=== PATIENT | female | born 1985 | race Hispanic/Latino ===

== ENCOUNTER 2019-09-17 10:02 | Emergency (ER) | payer SELFPAY ==
[~2019-09-17] VITALS: Ht 167.6 cm; Wt 113.4 kg
--- NOTE | 2019-09-17 10:29 | Emergency Department Note ---
History of Present Illnes History of Present Illness Chief Complaint: Genitourinary History of Present Illness This is a 34 year old female CC PREG 2 MONTHS AGO. PT . 2 MISCAR RIAGES AND RECENT 3 WKS AGO. C/O VAGINAL BLEEDING SINCE AND NOW HAVING HEAVY VAGINAL BLEEDING. DONE AT [facility]. PT HAS NO [employer]LLER. PT STATES SHE HAS TRIED MULTIPLE TIMES TO GET A HOLD OF CLINIC AND WAS TOLD TO COME TO ER. PT STATES PASSING LARGE CLOTS. PT STATES USING 3 PADS/DAY. PT AAOX4. AMBULATORY. PT STATES VAG BLEEDING ENTIRE 3 WKS. DENIES SOB. NO HX OF ANEMIA. SKIN W/D. Historian: Patient Arrival Mode: Car Inbound Sales Consultant Required: No Onset (how long ago): week(s) (2) Location: Vagina Quality: Bleeding Radiation: Reports non-radiation Severity: moderate Onset quality: gradual Duration (how long): week(s) Timing of current episode: constant Progression: worsening Chronicity: new Context: Reports recent surgery (D+C); Denies recent illness, Denies recent immobilization, Denies recent travel, Denies trauma/injury, Denies new medications, Denies hx of DVT/PE, Denies non- compliance w/ medications Relieving factors: none Exacerbating factors: none Associated symptoms: Reports denies other symptoms Treatments prior to arrival: none Past Medical/Family History Physician Review I have reviewed the patient's past medical and family history. Any updates have been documented here. Past Medical History Recent Fever: No Clinical Suspicion of Infectio: No New/Unexplained Change in Ment: No Other Medical History: +SMOKER OBESITY Past Surgical History: Cholecysctectomy, Appendectomy, Other Surgery: C SECTION X2 D & C Social History Smoking Cessation: Current every day smoker Counseling Performed: No Alcohol Use: None Any Illegal Drug Use: No Physically hurt or threatened: No Family History Family history of heart diseas: No Other Last Tetanus: UNK Any Pre-Existing Lines (PICC,: No Review of Systems Review of Systems Constitutional: Reports no symptoms EENTM: Reports no symptoms Cardiovascular: Reports no symptoms Respiratory: Reports no symptoms Gastrointestinal: Reports no symptoms Genitourinary: Reports no symptoms, Reports as per HPI, Reports other ([place] bleeding) Musculoskeletal: Reports no symptoms Integumentary: Reports no symptoms Neurological: Reports no symptoms Psychological: Reports no symptoms Endocrine: Reports no symptoms Hematological/Lymphatic: Reports no symptoms Physical Exam Related Data Allergies: Coded Allergies: No Known Allergies (Unverified , 05/06/14) Triage Vital Signs Vital Signs Date Time Temp Pulse Resp B/P (MAP) Pulse Ox O2 Delivery O2 Flow Rate FiO2 09/17/19 10:11 98.0 86 16 136/81 100 Room Air Vital signs reviewed: Yes Physical Exam CONSTITUTIONAL Constitutional: Present well-developed, Present well-nourished HENT HENT: Present normocephalic, Present atraumatic, Present oropharynx clear/moist, Present nose normal HENT L/R: Present left ext ear normal, Present right ext ear normal EYES Eyes: Reports PERRL, Reports conjunctivae normal NECK Neck: Present ROM normal PULMONARY Pulmonary: Present effort normal, Present breath sounds normal CARDIOVASCULAR Cardiovascular: Present regular rhythm, Present heart sounds normal, Present capillary refill normal, Present normal rate GASTROINTESTINAL Abdominal: Present soft, Present nontender, Present bowel sounds normal GENITOURINARY Genitourinary: Present vaginal discharge (Bleeding); Absent exam deferred SKIN Skin: Present warm, Present dry MUSCULOSKELETAL Musculoskeletal: Present ROM normal NEUROLOGICAL Neurological: Present alert, Present oriented x 3, Present no gross motor or sensory deficits PSYCHOLOGICAL Psychological: Present mood/affect normal, Present judgement normal Results Laboratory Lab results reviewed: Yes Assessment & Plan Medical Decision Making MDM 34-year-old female presenting for continued vaginal bleeding after elective with D&C. Exam shows an overall well-appearing patient in no acute distress, vital signs stable, within acceptable limits. Moderate amount of leading noted in the vaginal vault. Ultrasound shows retained blood clots but no intrauterine . HCG is 800. It is likely that her bleeding is secondary to return of spontaneous menstrual cycles. No signs to indicate hemorrhagic shock. I discussed management with patient and she has elected to follow up with [employer] and start oral contraceptive pills. Doubt emergent process at this time. I discussed results patient as well as expected disease time course and management. They will follow up with their primary care provider or return to the emergency department for new or worsening symptoms. Patient's appropriate for discharge. Part of this note was dictated with Satish and is subject to recognition errors. Reassessment Reassessment time: 11:27 Reassessment Well appearing, NAD Assessment & Plan Final Impression: (1) Abnormal uterine bleeding Depart Disposition: HOME, SELF-CARE Last Vital Signs Date Time Temp Pulse Resp B/P (MAP) Pulse Ox O2 Delivery O2 Flow Rate FiO2 09/17/19 10:11 98.0 86 16 136/81 100 Room Air Home Meds Active Scripts Norethindrone (NORETHINDRONE) 0.35 Mg Tablet, 0.35 MG PO DAILY, #30 Prov:GRANT BOOTHE MD 09/17/19 GRANT BOOTHE MD Sep 17, 2019 10:29
[2019-09-17 10:42] LABS: BASOPHILS # (AUTO) 0.1 (0.0-0.1); BASOPHILS % 0.7 % (0.0-1.0); EOSINOPHILS # (AUTO) 0.3 (0.0-0.4); EOSINOPHILS % 3.8 % (0.0-6.0); HEMATOCRIT 38.1 % (34.2-44.1); HEMOGLOBIN 12.8 g/dL (12.0-16.0); LYMPHOCYTES # (AUTO) 1.2 (1.0-3.2); MEAN CORPUSCULAR HEMOGLOBIN 30.5 pg (28-32); MEAN CORPUSCULAR HGB CONC 33.6 g/dL (31-35); MEAN CORPUSCULAR VOLUME 90.9 fL (81-99); MONOCYTES # (AUTO) 0.5 (0.2-0.8); MONOCYTES % 6.9 % (4.4-11.3); NEUTROPHILS # (AUTO) 5.6 (2.1-6.9); NEUTROPHILS % 73.2 % (38.7-80.0); PLATELET COUNT 308 x10e3/uL (140-360); RED BLOOD COUNT 4.19 x10e6/uL (3.6-5.1); RED CELL DISTRIBUTION WIDTH 12.5 % (11.7-14.4)
[2019-09-17 11:12] LABS: ALANINE AMINOTRANSFERASE 21 IU/L (0-55); ALBUMIN 3.8 g/dL (3.5-5.0); ALBUMIN/GLOBULIN RATIO 1.1 (0.8-2.0); ALKALINE PHOSPHATASE 64 IU/L (40-150); ANION GAP 10.9 mmol/L (8-16); BLOOD UREA NITROGEN 10 mg/dL (7-26); BUN/CREATININE RATIO 14 (6-25); CALCIUM 8.7 mg/dL (8.4-10.2); CARBON DIOXIDE 26 mmol/L (22-29); CHLORIDE 103 mmol/L (98-107); EST GLOMERULAR FILTRATION RATE > 60 ML/MIN (60-); GLUCOSE 94 mg/dL (74-118); POTASSIUM 3.9 mmol/L (3.5-5.1); SODIUM 136 mmol/L (136-145)
[2019-09-17 11:12] LABS: CLARITY,URINE SL CLOUDY (CLEAR); COLOR,URINE YELLOW (YELLOW)
--- OUTSIDE RECORDS SUMMARY | 2019-09-17 11:12 | XMS REPORT | Continuity of Care Document ---
Author Author Kenyatta Montero [employer] Organization [email or web address] Address Unknown Phone Unavailable Care Team Providers Care Live Hanger Name Role Phone [email or web address] Unavailable Un available Problems Problem Status Onset Date Classification Date Reported Comments Source Unspecified ovarian cyst, right side 08/30/2017 03/12/2018 [facility] Unspecified ovarian cyst, unspecified side 08/23/2017 03/12/2018 [facility] STOMACH SWELLING Active 08/23/2017 [facility] UNK Active 0 02/19/2016 [facility] Discharge Diagnosis: Other cholelithiasi s without obstruction 05/05/2015 05/09/2015 [facility] ABD PAIN Active 05/05/2015 [facility] RUQ PAIN, ACUTE APPENDICITIS, ED Active 03/22/2015 [facility] Discharge Diagnosis: Abnormality in feta l heart rate and rhythm complicating labor and delivery 03/19/2015 03/22/2015 [facility] HEART PALPITATIONS/ ABDOMINAL PAIN Active 03/19/2015 [facility] Discharge Diagnosis: Biliary colic 01/07/2015 01/10/2015 [facility] ABD-OTHER Active 01/07/2015 [facility] ABDOMINAL PAIN Active 04/06/2012 [facility] Anxiety (finding) Active Problem 03/12/2018 [facility] Asthma (disorder) Resolved Problem 03/12/2018 [facility] Calculus in biliary tract (disorder) Active Problem 04/2018 [facility] Gastritis (disorder) Resolved Problem 03/12/2018 [facility] Morbid obesity (disorder) Acti ve Problem 04/2018 [facility] Final: Missed 03/22/2015 [facility] Final: 13 weeks gestation of 03/22/2015 [facility] UNSPECIFIED ACUTE APPENDICITIS Active [facility] Medications Medication Details Route Status Patient Instructions Ordering Provider Order Date Source tramadol hydrochloride 50 MG Oral Tablet 50 mg = 1 tab, PO, Q4H, not to exceed 400 mg/day, X 3 day, # 18 tab, 0 Refill(s) No Longer Active 08/24/2017 [facility] ibuprofen 800 mg oral tablet 8 00 mg = 1 tab, PO, Q8H, not to exceed 3200 mg/day with food or milk, X 7 day, # 21 tab, 0 Refill(s) No Longer Active 08/24/2017 [facility] Sodium Chloride 0.9% (Bolus) IV 1,000 mL, Infuse Over: 1 hr, Route: IV, ONCE, Priority: STAT, Dosing Weight 115.028 kg, Start date: 08/23/17 20:31:00 CDT, Stop date: 08/23/17 20:31:00 CDT Inactive 08/24/2017 [facility] Ketorolac 30 mg, Route: IVP, D rug form: INJ, ONCE, Dosing Weight 115.028, kg, Priority: STAT, Start date: 08/23/17 20:31:00 CDT, Stop date: 08/23/17 20:31:00 CDT Inactive 08/24/2017 [facility] Acetaminophen 325 MG / Hydrocodone Israel trate 10 MG Oral Tablet [[place] 10/325] Notes: Do not exceed 4gm/day of acetamin ophen. (Same as: [place] 325/10) Inactive 05/12/2015 [facility] Naloxone Notes: Same as Narcan Inactive 05/12/2015 [facility] Ondansetron Notes: (Same as: Pily paniagua) MEDICATION WASTE Product Size: 4 mg Product Wasted: ___ mg Inactive 05/12/2015 [facility] Oxycodone Notes: (Same as: Rosette icodone) Inactive 05/12/2015 [facility] Hydralazine Notes: (Same as: A presoline) Push over 5 minutes Inactive 05/12/2015 [facility] Metoprolol Notes: (Same as: Lo pressor) Push over 2 minutes Inactive 05/12/2015 [facility] Flumazenil Notes: (Same as: Ro mazicon) Inactive 05/12/2015 [facility] Meperidine Notes: (Same As: De merol) Inactive 05/12/2015 [facility] Hydromorphone 0.5 mg, 0.5 mL, Route: IVP, Drug form: INJ, Q5Min, Dosing Weight 114.545, kg, PRN Pain Score 7-10, Start date: 05/12/15 13:27:00, Duration: 4 doses or times, Stop date: Limited # of times Inactive 05/12/2015 [facility] Fentanyl Notes: (Same as: Subl imaze) Preservative free. Inactive 05/12/2015 [facility] glycopyrrolate (ANES) Route: I V, Drug form: INJ, ONCE, Stop date: 05/12/15 13:23:00 Inactive 05/12/2015 [facility] neostigmine (ANES) Route: IV, Drug form: INJ, ONCE, Stop date: 05/12/15 13:23:00 Inactive 05/12/2015 [facility] acetaminophen (ANES) Route: IV , Drug form: INJ, ONCE, Stop date: 05/12/15 13:07:00 Inactive 05/12/2015 [facility] tramadol hydrochloride 50 MG Oral Tablet 50 mg = 1 tab, PO, Q6H, PRN Pain, X 10 day, # 40 tab, 0 Refill(s) Active 05/12/2015 [facility] Docusate Sodium 100 MG Oral Capsule [Colace] 100 mg = 1 cap, PO, BID, PRN Constipation, # 20 cap, 0 Refill(s), Pharmacy: [facility] [id number] Active 05/12/2015 [facility] rocuronium (ANES) Route: IV, D rug form: INJ, ONCE, Stop date: 05/12/15 12:47:00 Inactive 05/12/2015 [facility] lidocaine (ANES) Route: IV, Dr ug form: INJ, ONCE, Stop date: 05/12/15 12:42:00 Inactive 05/12/2015 [facility] ceFAZolin (ANES) Route: IV, Dr ug form: INJ, ONCE, Stop date: 05/12/15 12:37:00 Inactive 05/12/2015 [facility] ondansetron (ANES) Route: IV, Drug form: INJ, ONCE, Stop date: 05/12/15 12:37:00 Inactive 05/12/2015 [facility] midazolam (ANES) Route: IV, Dr ug form: SOLN, ONCE, Stop date: 05/12/15 12:37:00 Inactive 05/12/2015 [facility] fentaNYL (ANES) Route: IV, Alistair g form: INJ, ONCE, Stop date: 05/12/15 12:37:00 Inactive 05/12/2015 [facility] propofol (ANES) Route: IV, Alistair g form: INJ, ONCE, Stop date: 05/12/15 12:32:00 Inactive 05/12/2015 [facility] Lactated Ringers Injection IV (ANES) (ANES) Route: IV, Total Volume: 1,000, Start date: 05/12/15 11:52:00, Stop date: 05/12/15 12:52:00 Inactive 05/12/2015 [facility] Calcium Chloride 0.0014 MEQ/ML / Potassi um Chloride 0.004 MEQ/ML / Sodium Chloride 0.103 MEQ/ML / Sodium Lactate 0.028 MEQ/ML Injectable Solution 1,000 mL, Rate: 25 ml/hr, Infuse over: 4 0 hr, Route: IV, Dosing Weight 114.545 kg, Total Volume: 1,000, Start date: 05/12/15 11:13:00, Duration: 30 day, Stop date: 06/11/15 11:12:00 Inactive 05/12/2015 [facility] multivitamin Daily, 0 Refill(s) Active 05/08/2015 [facility] Dicyclomine Hydrochloride 20 MG Oral Tablet [Bentyl] 20 mg = 1 tab, PO, QID, # 40 tab, 0 Refill(s), Pharmacy: [id number] Active 05/06/2015 [facility] Bentyl 20 mg, Route: IM, ONCE, Dosing Weight 113.636, kg, Start date: 05/05/15 23:28:00, Stop date: 05/05/15 23:28:00 No Longer Active 05/06/2015 [facility] Bentyl Notes: (Same as: Bentyl) No Longer Active 05/05/2015 [facility] Protonix Notes: Tablet should not be chewed or crushed. (Same as: Protonix) No Longer Active 03/23/2015 [facility] Nexium 40 mg, Route: PO, BID-B efore Meals, Dosing Weight 113.636, kg, Start date: 03/23/15 7:30:00, Duration: 30 day, Stop date: 04/21/15 16:30:00 Inactive 03/23/2015 [facility] Oxycodone 5 mg, Route: PO, Alistair g form: TAB, Q4H, Dosing Weight 113.636, kg, PRN Pain Score 4-6, Start date: 03/23/15 0:16:00, Duration: 30 day, Stop date: 04/22/15 0:15:00 Inactive 03/23/2015 [facility] Metoprolol 1 mg, Route: IVP, Q 5Min, Dosing Weight 113.636, kg, PRN Other -See Comment, Start date: 03/23/15 0:16:00, Duration: 5 doses or times, Stop date: Limited # of times Inactive 03/23/2015 [facility] Dexamethasone 4 mg, Route: IVP , ONCE, Dosing Weight 113.636, kg, PRN Nausea & Vomiting, Start date: 03/23/15 0:16:00 Inactive 03/23/2015 [facility] Promethazine 6.25 mg, Route: I VPB, ONCE, Dosing Weight 113.636, kg, PRN Nausea & Vomiting, Start date: 03/23/15 0:16:00 Inactive 03/23/2015 [facility] Diphenhydramine 12.5 mg, Route : IVP, Drug form: INJ, Q6H, Dosing Weight 113.636, kg, PRN Itching, Start date: 03/23/15 0:16:00, Duration: 30 day, Stop date: 04/22/15 0:15:00 Inactive 03/23/2015 [facility] Ondansetron 4 mg, Route: IVP, ONCE, Dosing Weight 113.636, kg, PRN Nausea & Vomiting, Start date: 03/23/15 0:16:00 Inactive 03/23/2015 [facility] Glycopyrrolate 0.2 mg, Route: IVP, Q5Min, Dosing Weight 113.636, kg, PRN Bradycardia, Start date: 03/23/15 0:16:00, Duration: 3 doses or times, Stop date: Limited # of times Inactive 03/23/2015 [facility] Hydralazine 10 mg, Route: IVP, Q20Min, Dosing Weight 113.636, kg, PRN Elevated BP, Start date: 03/23/15 0:16:00, Duration: 2 doses or times, Stop date: Limited # of times Inactive 03/23/2015 [facility] Ketorolac 30 mg, Route: IVP, O NCE, Dosing Weight 113.636, kg, Start date: 03/23/15 0:16:00, Duration: 1 doses or times, Stop date: 03/23/15 0:16:00 Inactiv e 03/23/2015 [facility] Morphine 2 mg, Route: IVP, Q5M in, Dosing Weight 113.636, kg, PRN Pain Score 4-6, Start date: 03/23/15 0:16:00, Duration: 5 doses or times, Stop date: Limited # of times Inactive 03/23/2015 [facility] Fentanyl 50 microgram, Route: IVP, Q5Min, Dosing Weight 113.636, kg, PRN Pain Score 7-10, Start date: 03/23/15 0:16:00, Duration: 2 doses or times, Stop date: Limited # of times Inactive 03/23/2015 [facility] Hydromorphone 0.5 mg, Route: I [employer], Q5Min, Dosing Weight 113.636, kg, PRN Pain Score 7-10, Start date: 03/23/15 0:16:00, Duration: 4 doses or times, Stop date: Limited # of times Inactive 03/23/2015 [facility] Naloxone 0.04 mg, Route: IVP, Q2MIN, Dosing Weight 113.636, kg, PRN Narcotic Reversal, Start date: 03/23/15 0:16:00, Duration: 8 doses or times, Stop date: Limited # of times Inactive 03/23/2015 [facility] Flumazenil 0.2 mg, Route: IVP, PRN, Dosing Weight 113.636, kg, PRN Benzodiazepine Reversal, Initial dose, Start date: 03/23/15 0:16:00, Duration: 30 day, Stop date: 04/22/15 1:15:00 Inactive 03/23/2015 [facility] Meperidine 12.5 mg, Route: IVP , Q30Min, Dosing Weight 113.636, kg, PRN Other -See Comment, For shivering, Start date: 03/23/15 0:16:00, Duration: 2 doses or times, Stop date: Limited # of times Inactive 03/23/2015 [facility] ceFAZolin (SCIP) 1 gm, 100 mL, Route: IVPB, Drug form: INJ, Q8H, Dosing Weight 113.636, kg, Start date: 03/23/15 0:00:00, Duration: 1 doses or times, Stop date: 03/23/15 0:00:00 Inactive 03/23/2015 [facility] Promethazine Hydrochloride 25 MG Oral Ta blet [Phenergan] 25 mg = 1 tab, PO, Q6H, PRN Nausea, X 7 day, # 28 tab, 1 Refill(s) Active 03/23/2015 [facility] Acetaminophen 300 MG / Codeine Phosphate 30 MG Oral Tablet [Tylenol with Codeine #3] 1 - 2 tab, PO, Q4H, PRN Pain, X 2 week, # 30 tab, 2 Refill(s) Active 03/23/2015 [facility] acetaminophen-codeine #3 Notes : Do not exceed 4gm/day of acetaminophen. (Same as: Tylenol with Codeine # 3) No Longer Active 03/23/2015 [facility] rocuronium (ANES) Route: IV, D rug form: INJ, ONCE, Stop date: 03/22/15 23:18:00 Inactive 03/23/2015 [facility] ketOROLAC (ANES) IV, ONCE Inactive 03/23/2015 [facility] ceFAZolin (ANES) Route: IV, Dr ug form: INJ, ONCE, Stop date: 03/22/15 23:18:00 Inactive 03/23/2015 [facility] ondansetron (ANES) Route: IV, Drug form: INJ, ONCE, Stop date: 03/22/15 23:18:00 Inactive 03/23/2015 [facility] midazolam (ANES) Route: IV, Dr ug form: SOLN, ONCE, Stop date: 03/22/15 23:13:00 Inactive 03/23/2015 [facility] fentaNYL (ANES) Route: IV, Alistair g form: INJ, ONCE, Stop date: 03/22/15 23:13:00 Inactive 03/23/2015 [facility] propofol (ANES) Route: IV, Alistair g form: INJ, ONCE, Stop date: 03/22/15 23:13:00 Inactive 03/23/2015 [facility] Lactated Ringers Injection IV (ANES) (ANES) Route: IV, Total Volume: 1,000, Start date: 03/22/15 22:17:00, Stop date: 03/22/15 23:17:00 Inactive 03/23/2015 [facility] Cefoxitin Notes: (Same As: Mef oxin) MEDICATION WASTE Product Size: 2000 mg Product Wasted: ___ mg Inactive 03/23/2015 [facility] normal saline 0.9% IV 1,000 mL 1,000 mL, Rate: 100 ml/hr, Infuse over: 10 hr, Route: IV, Dosing Weight 113.636 kg, Total Volume: 1,000, Start date: 03/22/15 16:58:00, Duration: 30 day, Stop date: 04/21/15 16:57:00 No Longer Active 03/22/2015 [facility] Phenergan Notes: Do not give I V push. (Same as: Phenergan) No Longer Active 03/22/2015 [facility] Morphine Notes: (Same as:MORPh ine Sulfate) No Longer Active 03/22/2015 [facility] Acetaminophen 325 MG / Hydrocodone Israel trate 10 MG Oral Tablet [[place] 10/325] 1 tab, PO, Q6H, PRN Pain Score 6-10, # 3 0 tab, 0 Refill(s) No Longer Active 03/22/2015 [facility] Mefoxin 2 gm, Route: IVPB, ONC E, Dosing Weight 113.636, kg, Priority: STAT, Start date: 03/22/15 12:39:00, Stop date: 03/22/15 12:39:00 Inactive 03/22/2015 [facility] Zofran 4 mg, Route: IVP, Drug form: INJ, ONCE, Dosing Weight 113.636, kg, Priority: STAT, Start date: 03/22/15 11:21:00, Stop date: 03/22/15 11:21:00 Inactive 03/22/2015 [facility] Morphine 4 mg, Route: IVP, Alistair g form: INJ, ONCE, Dosing Weight 113.636, kg, Priority: STAT, Start date: 03/22/15 11:21:00, Stop date: 03/22/15 11:21:00 Inactive 03/22/2015 [facility] Esomeprazole 40 MG Enteric Coated Capsule [Nexium] 40 mg = 1 cap, PO, Daily, # 30 cap, 0 Refill(s) Active 03/19/2015 [facility] Ondansetron 4 MG Disintegrating Tablet [Zofran] 4 mg = 1 tab, PO, BID, PRN Nausea and Vomiting, Dissolve tab under tongue, X 5 day, # 30 tab, 0 Refill(s) Active 01/07/2015 [facility] GI cocktail 30 mL, Route: PO, Dosing Weight 159.091, kg, ONCE, STAT, Start date: 01/07/15 13:48:00, Stop date: 01/07/15 13:48:00 Inactive 01/07/2015 [facility] Morphine 4 mg, Route: IVP, ONC E, Dosing Weight 159.091, kg, Priority: STAT, Start date: 01/07/15 11:32:00, Stop date: 01/07/15 11:32:00 Inactive 01/07/2015 [facility] Sodium Chloride 0.154 MEQ/ML Injectable Solution 1,000 mL, 1,000 ml/hr, Infuse Over: 1 hr, Route: IV, ONCE, Priority: STAT, Dosing Weight 159.091 kg, Start date: 01/07/15 11:32:00, Duration: 1 doses or times, Stop date: 01/07/15 11:32:00 Inactive 01/07/2015 [facility] Ondansetron 4 mg, Route: IVP, Drug form: INJ, ONCE, Dosing Weight 159.091, kg, Priority: STAT, Start date: 01/07/15 11:32:00, Stop date: 01/07/15 11:32:00 Inactive 01/07/2015 [facility] Tylenol 1,000 mg, Route: PO, O NCE, Dosing Weight 113.636, kg, Start date: 04/07/12 22:12:00, Stop date: 04/07/12 22:12:00 PO No Longer Active [place] 2012 [facility] potassium chloride 20 mEq/15 mL oral liquid 40 mEq, 15 mL, Route: PO, Drug form: LIQ, ONCE, Dosing Weight 113.636, kg, Priority: STAT, Start date: 04/07/12 20:11:00, Stop date: 04/07/12 20:11:00 PO No Longer Active [place] 04/08/2012 [facility] Sodium Chloride 0.9% (Bolus) IV 1,000 mL 1,000 mL, Rate: 1,000 ml/hr, Infuse over: 1 hr, Route: IV, kg, Total Volume: 1,000, Priority: STAT, Start date: 04/07/12 20:11:00, Duration: 1 doses or times, Stop date: 04/07/12 21:10:00, Bolus DoseBolus Dose IV No Longer Active [place] 04/08/2012 [facility] Allergies, Adverse Reactions, Alerts No Known Medication Allergies Immunizations No Data Provided for This Section Results Order Name Results Value Reference Range Date Interpretation Comments Source MOLECULAR DIAGNOSTIC N gonorrhea by Amp Det (APTIMA) Negative *NA* (08/23/17 9:08 PM) Negative 08/24/2017 [facility] MOLECULAR DIAGNOSTIC C trachomatis b y Amp Det (APTIMA) Negative *NA* (08/23/17 9:08 PM) Negative 08/24/2017 [facility] MOLECULAR DIAGNOSTIC Source APTIMA Endocervix *NA* (08/23/17 9:08 PM) 08/24/2017 [facility] CHEM PANEL Lipase Lvl 91 73 - 393 08/24/2017 [facility] CHEM PANEL B/C Ratio 14 6 - 25 08/24/2017 [facility] CHEM PANEL AGAP 8.9 10.0 - 20.0 08/24/2017 [facility] CHEM PANEL Globulin 3.8 2.7 - 4.2 08/24/2017 [facility] CHEM PANEL A/G Ratio 1.1 0.7 - 1.6 08/24/2017 [facility] CHEM PANEL Total Protein 7.9 6.4 - 8.4 08/24/2017 [facility] CHEM PANEL CO2 28 24 - 32 08/24/2017 [facility] CHEM PANEL Calcium Lvl 8.8 8.5 - 10.5 08/24/2017 [facility] CHEM PANEL Creatinine Lvl 0.93 0.50 - 1.40 08/24/2017 [facility] CHEM PANEL Potassium Lvl 3.9 3.5 - 5.1 08/24/2017 [facility] CHEM PANEL Sodium Lvl 139 135 - 145 08/24/2017 [facility] CHEM PANEL Chloride Lvl 106 95 - 109 08/24/2017 [facility] CHEM PANEL BUN 13 7 - 22 08/24/2017 [facility] CHEM PANEL Glucose Lvl 83 70 - 99 08/24/2017 [facility] CHEM PANEL Alk Phos 71 39 - 136 08/24/2017 [facility] CHEM PANEL AST 6 0 - 37 08/24/2017 [facility] CHEM PANEL Bili Total 0.5 0.2 - 1.3 08/24/2017 [facility] CHEM PANEL ALT 19 0 - 65 08/24/2017 [facility] CHEM PANEL Albumin Lvl 4.1 3.5 - 5.0 08/24/2017 [facility] CHEM PANEL eGFR 83 08/24/2017 Result Comment: The eGFR is calculated using the CKD-EPI formula. In most young, healthy individuals the eGFR will be >90 mL/min/1.73m2. The eGFR declines with age. An eGFR of 60-89 may be normal in some populations, particularly the elderly, for whom the CKD-EPI formula has not been extensively validated. Use of the eGFR is not recommended in the following populations:

Individuals with unstable creatinine concentrations, including patients and those with serious co-morbid conditions.

Patients with extremes in muscle mass or diet.

The data above are obtained from the National Kidney Disease Education Program (NKDEP) which additionally recommends that when the eGFR is used in patients with extremes of body mass index for purposes of drug dosing, the eGFR should be multiplied by the estimated BMI. [facility] HEMATOLOGY Eosinophils # 0.2 0.0 - 0.5 08/24/2017 [facility] Neutrophils # 4.6 1.5 - 8.1 08/24/2017 [facility] Basophils 0.4 0.0 - 1.0 08/24/2017 [facility] Eosinophils 2.6 0.0 - 4.0 08/24/2017 [facility] Monocytes 7.6 2.0 - 12.0 08/24/2017 [facility] Segs 63.5 45.0 - 75.0 08/24/2017 [facility] Lymphocytes # 1.9 1.0 - 5.5 08/24/2017 [facility] Monocytes # 0.6 0.0 - 0.8 08/24/2017 [facility] Lymphocytes 25.9 20.0 - 40.0 08/24/2017 [facility] Hgb 14.0 12.0 - 16.0 08/24/2017 [facility] RBC 4.54 4.20 - 5.40 08/24/2017 [facility] WBC 7.2 3.7 - 10.4 08/24/2017 [facility] MCHC 34.1 32.0 - 36.0 08/24/2017 [facility] RDW 13.2 11.5 - 14.5 08/24/2017 [facility] MCV 90.6 80.0 - 98.0 08/24/2017 [facility] Hct 41.1 36.0 - 48.0 08/24/2017 [facility] HEMATOLOGY MPV 7.9 7.4 - 10.4 08/24/2017 [facility] HEMATOLOGY Platelet 255 133 - 450 08/24/2017 [facility] HEMATOLOGY MCH 30.9 27.0 - 31.0 08/24/2017 [facility] URINE AND STOOL UA Leuk Est Negative (08/23/17 8:03 PM) Negative 08/24/2017 [facility] URINE AND STOOL UA WBC <1 0 - 5 08/24/2017 [facility] URINE AND STOOL UA Urobilinogen <=1.0 mg/dL 0.1 - 1.0 08/24/2017 [facility] URINE AND STOOL UA Color Ltyellow 08/24/2017 [facility] URINE AND STOOL UA Sq Epi Few /LPF Few /LPF 08/24/2017 [facility] URINE AND STOOL UA Bacteria Occasional /HPF None Seen /HPF 08/24/2017 [facility] URINE AND STOOL UA RBC 1 0 - 2 08/24/2017 [facility] URINE AND STOOL UA Nitrite Negative (08/23/17 8:03 PM) Negative 08/24/2017 [facility] URINE AND STOOL UA Blood Negative (08/23/17 8:03 PM) Negative 08/24/2017 [facility] URINE AND STOOL UA Bili Negative *NA* (08/23/17 8:03 PM) Negative 08/24/2017 [facility] URINE AND STOOL UA Ketones Negative mg/dL Negative mg/dL 08/24/2017 [facility] URINE AND STOOL UA Spec Grav 1.018 <=1.030 08/24/2017 [facility] URINE AND STOOL UA Glucose Negative mg/dL Negative mg/dL 08/24/2017 [facility] URINE AND STOOL UA Turbidity Clear (08/23/17 8:03 PM) Clear 08/24/2017 [facility] URINE AND STOOL UA Protein Negative mg/dL Negative mg/dL 08/24/2017 [facility] URINE AND STOOL UA pH 6.0 5.0 - 8.0 08/24/2017 [facility] URINE CHEM U Preg Negat anthony (08/23/17 8:03 PM) Negative 08/24/2017 [facility] URINE CHEM U Preg Negat anthony (05/12/15 10:16 AM) Negative 05/12/2015 [facility] URINE AND STOOL UA Urobilinogen <=1.0 mg/dL 0.1 - 1.0 05/06/2015 [facility] URINE AND STOOL UA Color Ltyellow 05/06/2015 [facility] URINE AND STOOL UA Nitrite Negative (05/05/15 9:38 PM) Negative 05/06/2015 [facility] URINE AND STOOL UA Sq Epi Occasional /LPF Few /LPF 05/06/2015 [facility] URINE AND STOOL UA WBC <1 0 - 5 05/06/2015 [facility] URINE AND STOOL UA RBC 4 0 - 2 05/06/2015 [facility] URINE AND STOOL UA Mucus Few /LPF None Seen /LPF 05/06/2015 [facility] URINE AND STOOL UA Leuk Est Negative (05/05/15 9:38 PM) Negative 05/06/2015 [facility] URINE AND STOOL UA Spec Grav 1.012 <=1.030 05/06/2015 [facility] URINE AND STOOL UA pH 6.0 5.0 - 8.0 05/06/2015 [facility] URINE AND STOOL UA Turbidity Clear (05/05/15 9:38 PM) Clear 05/06/2015 [facility] URINE AND STOOL UA Protein Negative mg/dL Negative mg/dL 05/06/2015 [facility] URINE AND STOOL UA Glucose Negative mg/dL Negative mg/dL 05/06/2015 [facility] URINE AND STOOL UA Ketones Negative mg/dL Negative mg/dL 05/06/2015 [facility] URINE AND STOOL UA Bili Negative *NA* (05/05/15 9:38 PM) Negative 05/06/2015 [facility] URINE AND STOOL UA Blood Small *ABN* (05/05/15 9:38 PM) Negative 05/06/2015 [facility] CHEM PANEL Lipase Lvl 78 73 - 393 05/06/2015 [facility] ELECTROLYTES AGAP 10.1 10.0 - 20.0 05/06/2015 [facility] ELECTROLYTES B/C Ratio 12 6 - 25 05/06/2015 [facility] ELECTROLYTES Globulin 4.1 2.0 - 4.0 05/06/2015 [facility] ELECTROLYTES A/G Ratio 0.9 0.7 - 1.6 05/06/2015 [facility] ELECTROLYTES Creatinine Lvl 0.5 6 0.50 - 1.40 05/06/2015 [facility] ELECTROLYTES BUN 7 7 - 22 05/06/2015 [facility] ELECTROLYTES Glucose Lvl 86 70 - 99 05/06/2015 [facility] ELECTROLYTES eGFR 128 05/06/2015 Result Comment: The eGFR is calculated using the CKD-EPI formula. In most young, healthy individuals the eGFR will be >90 mL/min/1.73m2. The eGFR declines with age. An eGFR of 60-89 may be normal in some populations, particularly the elderly, for whom the CKD-EPI formula has not been extensively validated. Use of the eGFR is not recommended in the following populations:

Individuals with unstable creatinine concentrations, including patients and those with serious co-morbid conditions.

Patients with extremes in muscle mass or diet.

The data above are obtained from the National Kidney Disease Education Program (NKDEP) which additionally recommends that when the eGFR is used in patients with extremes of body mass index for purposes of drug dosing, the eGFR should be multiplied by the estimated BMI. [facility] ELECTROLYTES AST 10 0 - 37 05/06/2015 [facility] ELECTROLYTES Bili Total 0.4 0.2 - 1.3 05/06/2015 [facility] ELECTROLYTES Alk Phos 84 39 - 136 05/06/2015 [facility] ELECTROLYTES Chloride Lvl 106 95 - 109 05/06/2015 [facility] ELECTROLYTES Sodium Lvl 139 135 - 145 05/06/2015 [facility] ELECTROLYTES Potassium Lvl 4.1 3.5 - 5.1 05/06/2015 [facility] ELECTROLYTES CO2 27 24 - 32 05/06/2015 [facility] ELECTROLYTES Albumin Lvl 3.7 3.5 - 5.0 05/06/2015 [facility] ELECTROLYTES Calcium Lvl 8.1 8.5 - 10.5 05/06/2015 [facility] ELECTROLYTES ALT 21 0 - 65 05/06/2015 [facility] ELECTROLYTES Total Protein 7.8 6.4 - 8.4 05/06/2015 [facility] ENDOCRINOLOGY S Preg Ne gative *NA* (05/05/15 9:23 PM) Negative 05/06/2015 [facility] HEMATOLOGY Lymphocytes # 2.2 1.0 - 5.5 05/06/2015 [facility] HEMATOLOGY Segs-Bands # 7.8 1.5 - 8.1 05/06/2015 [facility] HEMATOLOGY Basophils 0.4 0.0 - 1.0 05/06/2015 [facility] HEMATOLOGY Monocytes # 0.6 0.0 - 0.8 05/06/2015 [facility] HEMATOLOGY Eosinophils # 0.1 0.0 - 0.5 05/06/2015 [facility] Lymphocytes 20.7 20.0 - 40.0 05/06/2015 [facility] HEMATOLOGY Segs 72.6 45.0 - 75.0 05/06/2015 [facility] HEMATOLOGY Eosinophils 0.9 0.0 - 4.0 05/06/2015 [facility] HEMATOLOGY Monocytes 5.4 2.0 - 12.0 05/06/2015 [facility] HEMATOLOGY MPV 8.1 7.4 - 10.4 05/06/2015 [facility] HEMATOLOGY Platelet 330 133 - 450 05/06/2015 [facility] HEMATOLOGY MCH 29.3 27.0 - 31.0 05/06/2015 [facility] HEMATOLOGY MCHC 32.9 32.0 - 36.0 05/06/2015 [facility] HEMATOLOGY RDW 13.4 11.5 - 14.5 05/06/2015 [facility] HEMATOLOGY MCV 89.2 80.0 - 98.0 05/06/2015 [facility] HEMATOLOGY WBC 10.7 3.7 - 10.4 05/06/2015 [facility] HEMATOLOGY RBC 4.31 4.20 - 5.40 05/06/2015 [facility] HEMATOLOGY Hgb 12.6 12.0 - 16.0 05/06/2015 [facility] HEMATOLOGY Hct 38.4 36.0 - 48.0 05/06/2015 [facility] HEMATOLOGY Hct 32.9 36.0 - 48.0 03/23/2015 [facility] HEMATOLOGY Hgb 11.2 12.0 - 16.0 03/23/2015 [facility] HEMATOLOGY MCV 88.9 80.0 - 98.0 03/23/2015 [facility] HEMATOLOGY MCH 30.3 27.0 - 31.0 03/23/2015 [facility] HEMATOLOGY RBC 3.70 4.20 - 5.40 03/23/2015 [facility] HEMATOLOGY WBC 8.9 3.7 - 10.4 03/23/2015 [facility] HEMATOLOGY MCHC 34.1 32.0 - 36.0 03/23/2015 [facility] HEMATOLOGY MPV 8.3 7.4 - 10.4 03/23/2015 [facility] HEMATOLOGY Platelet 236 133 - 450 03/23/2015 [facility] HEMATOLOGY RDW 13.0 11.5 - 14.5 03/23/2015 [facility] HEMATOLOGY Segs-Bands # 7.5 1.5 - 8.1 03/23/2015 [facility] HEMATOLOGY Segs 84.6 45.0 - 75.0 03/23/2015 [facility] HEMATOLOGY Eosinophils 0.2 0.0 - 4.0 03/23/2015 [facility] HEMATOLOGY Monocytes 4.6 2.0 - 12.0 03/23/2015 [facility] HEMATOLOGY Basophils 0.5 0.0 - 1.0 03/23/2015 [facility] HEMATOLOGY Lymphocytes 10.1 20.0 - 40.0 03/23/2015 [facility] HEMATOLOGY Monocytes # 0.4 0.0 - 0.8 03/23/2015 [facility] HEMATOLOGY Lymphocytes # 0.9 1.0 - 5.5 03/23/2015 [facility] CHEM PANEL Lipase Lvl 67 73 - 393 03/22/2015 [facility] ELECTROLYTES AGAP 12.8 10.0 - 20.0 03/22/2015 [facility] ELECTROLYTES B/C Ratio 12 6 - 25 03/22/2015 [facility] ELECTROLYTES A/G Ratio 0.8 0.7 - 1.6 03/22/2015 [facility] ELECTROLYTES Globulin 3.8 2.0 - 4.0 03/22/2015 [facility] ELECTROLYTES eGFR 153 03/22/2015 Result Comment: The eGFR is calculated using the CKD-EPI formula. In most young, healthy individuals the eGFR will be >90 mL/min/1.73m2. The eGFR declines with age. An eGFR of 60-89 may be normal in some populations, particularly the elderly, for whom the CKD-EPI formula has not been extensively validated. Use of the eGFR is not recommended in the following populations:

Individuals with unstable creatinine concentrations, including patients and those with serious co-morbid conditions.

Patients with extremes in muscle mass or diet.

The data above are obtained from the National Kidney Disease Education Program (NKDEP) which additionally recommends that when the eGFR is used in patients with extremes of body mass index for purposes of drug dosing, the eGFR should be multiplied by the estimated BMI. [facility] ELECTROLYTES Alk Phos 62 39 - 136 03/22/2015 [facility] ELECTROLYTES Bili Total 0.3 0.2 - 1.3 03/22/2015 [facility] ELECTROLYTES ALT 30 0 - 65 03/22/2015 [facility] ELECTROLYTES AST 10 0 - 37 03/22/2015 [facility] ELECTROLYTES Total Protein 6.8 6.4 - 8.4 03/22/2015 [facility] ELECTROLYTES Albumin Lvl 3.0 3.5 - 5.0 03/22/2015 [facility] ELECTROLYTES CO2 24 24 - 32 03/22/2015 [facility] ELECTROLYTES Calcium Lvl 8.6 8.5 - 10.5 03/22/2015 [facility] ELECTROLYTES Glucose Lvl 86 70 - 99 03/22/2015 [facility] ELECTROLYTES Potassium Lvl 3.8 3.5 - 5.1 03/22/2015 [facility] ELECTROLYTES Sodium Lvl 137 135 - 145 03/22/2015 [facility] ELECTROLYTES Creatinine Lvl 0.3 2 0.50 - 1.40 03/22/2015 [facility] ELECTROLYTES BUN 4 7 - 22 03/22/2015 [facility] ELECTROLYTES Chloride Lvl 104 95 - 109 03/22/2015 [facility] HEMATOLOGY Basophils 1.0 0.0 - 1.0 03/22/2015 [facility] HEMATOLOGY Basophils # 0.1 0.0 - 0.2 03/22/2015 [facility] HEMATOLOGY Eosinophils # 0.1 0.0 - 0.5 03/22/2015 [facility] HEMATOLOGY Lymphocytes # 1.4 1.0 - 5.5 03/22/2015 [facility] HEMATOLOGY Monocytes # 0.5 0.0 - 0.8 03/22/2015 [facility] HEMATOLOGY Segs-Bands # 4.9 1.5 - 8.1 03/22/2015 [facility] HEMATOLOGY Segs 70.8 45.0 - 75.0 03/22/2015 [facility] HEMATOLOGY Lymphocytes 19.6 20.0 - 40.0 03/22/2015 [facility] HEMATOLOGY Monocytes 6.7 2.0 - 12.0 03/22/2015 [facility] HEMATOLOGY Eosinophils 1.9 0.0 - 4.0 03/22/2015 [facility] HEMATOLOGY MPV 8.2 7.4 - 10.4 03/22/2015 [facility] HEMATOLOGY RDW 13.4 11.5 - 14.5 03/22/2015 [facility] HEMATOLOGY Platelet 237 133 - 450 03/22/2015 [facility] HEMATOLOGY MCH 30.2 27.0 - 31.0 03/22/2015 [facility] HEMATOLOGY MCHC 33.8 32.0 - 36.0 03/22/2015 [facility] HEMATOLOGY MCV 89.3 80.0 - 98.0 03/22/2015 [facility] HEMATOLOGY Hct 35.9 36.0 - 48.0 03/22/2015 [facility] HEMATOLOGY RBC 4.01 4.20 - 5.40 03/22/2015 [facility] HEMATOLOGY WBC 7.0 3.7 - 10.4 03/22/2015 [facility] HEMATOLOGY Hgb 12.1 12.0 - 16.0 03/22/2015 [facility] URINE AND STOOL UA Urobilinogen <=1.0 mg/dL 0.1 - 1.0 03/22/2015 [facility] URINE AND STOOL UA Sq Epi Occasional /LPF Few /LPF 03/22/2015 [facility] URINE AND STOOL UA WBC 1 0 - 5 03/22/2015 [facility] URINE AND STOOL UA RBC 1 0 - 2 03/22/2015 [facility] URINE AND STOOL UA Turbidity Clear (03/22/15 11:17 AM) Clear 03/22/2015 [facility] URINE AND STOOL UA Spec Grav 1.013 <=1.030 03/22/2015 [facility] URINE AND STOOL UA Bacteria Few /HPF None Seen /HPF 03/22/2015 [facility] URINE AND STOOL UA Mucus Few /LPF None Seen /LPF 03/22/2015 [facility] URINE AND STOOL UA Protein Negative mg/dL Negative mg/dL 03/22/2015 [facility] URINE AND STOOL UA pH 8.0 5.0 - 8.0 03/22/2015 [facility] URINE AND STOOL UA Nitrite Negative (03/22/15 11:17 AM) Negative 03/22/2015 [facility] URINE AND STOOL UA Leuk Est Negative (03/22/15 11:17 AM) Negative 03/22/2015 [facility] URINE AND STOOL UA Color Yellow *NA* (03/22/15 11:17 AM) Yellow 03/22/2015 [facility] URINE AND STOOL UA Ketones Negative mg/dL Negative mg/dL 03/22/2015 [facility] URINE AND STOOL UA Glucose Negative mg/dL Negative mg/dL 03/22/2015 [facility] URINE AND STOOL UA Bili Negative *NA* (03/22/15 11:17 AM) Negative 03/22/2015 [facility] URINE AND STOOL UA Blood Negative (03/22/15 11:17 AM) Negative 03/22/2015 [facility] BLOOD BANK RESULTS ABO/Rh O POS 03/19/2015 [facility] CHEM PANEL ALT 41 0 - 65 03/19/2015 [facility] CHEM PANEL AST 20 0 - 37 03/19/2015 [facility] CHEM PANEL Alk Phos 58 39 - 136 03/19/2015 [facility] CHEM PANEL eGFR 138 03/19/2015 Result Comment: The eGFR is calculated using the CKD-EPI formula. In most young, healthy individuals the eGFR will be >90 mL/min/1.73m2. The eGFR declines with age. An eGFR of 60-89 may be normal in some populations, particularly the elderly, for whom the CKD-EPI formula has not been extensively validated. Use of the eGFR is not recommended in the following populations:

Individuals with unstable creatinine concentrations, including patients and those with serious co-morbid conditions.

Patients with extremes in muscle mass or diet.

The data above are obtained from the National Kidney Disease Education Program (NKDEP) which additionally recommends that when the eGFR is used in patients with extremes of body mass index for purposes of drug dosing, the eGFR should be multiplied by the estimated BMI. [facility] CHEM PANEL Bili Total 0.3 0.2 - 1.3 03/19/2015 [facility] CHEM PANEL BUN 6 7 - 22 03/19/2015 [facility] CHEM PANEL Creatinine Lvl 0.44 0.50 - 1.40 03/19/2015 [facility] CHEM PANEL Calcium Lvl 8.6 8.5 - 10.5 03/19/2015 [facility] CHEM PANEL Glucose Lvl 94 70 - 99 03/19/2015 [facility] CHEM PANEL Sodium Lvl 137 135 - 145 03/19/2015 [facility] CHEM PANEL Potassium Lvl 3.5 3.5 - 5.1 03/19/2015 [facility] CHEM PANEL Chloride Lvl 106 95 - 109 03/19/2015 [facility] CHEM PANEL CO2 23 24 - 32 03/19/2015 [facility] CHEM PANEL Total Protein 6.9 6.4 - 8.4 03/19/2015 [facility] CHEM PANEL Albumin Lvl 3.1 3.5 - 5.0 03/19/2015 [facility] CHEM PANEL AGAP 11.5 10.0 - 20.0 03/19/2015 [facility] CHEM PANEL B/C Ratio 14 6 - 25 03/19/2015 [facility] CHEM PANEL Globulin 3.8 2.0 - 4.0 03/19/2015 [facility] CHEM PANEL A/G Ratio 0.8 0.7 - 1.6 03/19/2015 [facility] [place] [id number] 03/19/2015 [facility] HEMATOLOGY Hgb 12.5 12.0 - 16.0 03/19/2015 [facility] HEMATOLOGY Hct 36.8 36.0 - 48.0 03/19/2015 [facility] HEMATOLOGY WBC 6.7 3.7 - 10.4 03/19/2015 [facility] HEMATOLOGY RBC 4.12 4.20 - 5.40 03/19/2015 [facility] HEMATOLOGY MPV 8.4 7.4 - 10.4 03/19/2015 [facility] MCHC 33.9 32.0 - 36.0 03/19/2015 [facility] HEMATOLOGY RDW 13.3 11.5 - 14.5 03/19/2015 [facility] HEMATOLOGY Platelet 227 133 - 450 03/19/2015 [facility] HEMATOLOGY MCV 89.2 80.0 - 98.0 03/19/2015 [facility] MCH 30.3 27.0 - 31.0 03/19/2015 [facility] HEMATOLOGY Segs 71.5 45.0 - 75.0 03/19/2015 [facility] HEMATOLOGY Monocytes 7.1 2.0 - 12.0 03/19/2015 [facility] HEMATOLOGY Lymphocytes 19.1 20.0 - 40.0 03/19/2015 [facility] HEMATOLOGY Eosinophils 1.4 0.0 - 4.0 03/19/2015 [facility] HEMATOLOGY Segs-Bands # 4.8 1.5 - 8.1 03/19/2015 [facility] HEMATOLOGY Basophils 0.9 0.0 - 1.0 03/19/2015 [facility] HEMATOLOGY Basophils # 0.1 0.0 - 0.2 03/19/2015 [facility] HEMATOLOGY Lymphocytes # 1.3 1.0 - 5.5 03/19/2015 [facility] HEMATOLOGY Eosinophils # 0.1 0.0 - 0.5 03/19/2015 [facility] HEMATOLOGY Monocytes # 0.5 0.0 - 0.8 03/19/2015 [facility] URINE AND STOOL UA Mucus Few /LPF None Seen /LPF 03/19/2015 [facility] URINE AND STOOL UA Urobilinogen <=1.0 mg/dL 0.1 - 1.0 03/19/2015 [facility] URINE AND STOOL UA Sq Epi Moderate /LPF Few /LPF 03/19/2015 [facility] URINE AND STOOL UA WBC 1 0 - 5 03/19/2015 [facility] URINE AND STOOL UA Bacteria Occasional /HPF None Seen /HPF 03/19/2015 [facility] URINE AND STOOL UA Ketones Negative mg/dL Negative mg/dL 03/19/2015 [facility] URINE AND STOOL UA Bili Negative *NA* (03/19/15 8:30 AM) Negative 03/19/2015 [facility] URINE AND STOOL UA Blood Negative (03/19/15 8:30 AM) Negative 03/19/2015 [facility] URINE AND STOOL UA Leuk Est Negative (03/19/15 8:30 AM) Negative 03/19/2015 [facility] URINE AND STOOL UA Nitrite Negative (03/19/15 8:30 AM) Negative 03/19/2015 [facility] URINE AND STOOL UA Turbidity Slight *ABN* (03/19/15 8:30 AM) Clear 03/19/2015 [facility] URINE AND STOOL UA Spec Grav 1.019 <=1.030 03/19/2015 [facility] URINE AND STOOL UA pH 7.0 5.0 - 8.0 03/19/2015 [facility] URINE AND STOOL UA Protein Negative mg/dL Negative mg/dL 03/19/2015 [facility] URINE AND STOOL UA Glucose Negative mg/dL Negative mg/dL 03/19/2015 [facility] URINE AND STOOL UA Color Yellow *NA* (03/19/15 8:30 AM) Yellow 03/19/2015 [facility] CHEM PANEL Lactic Acid Lvl 0.3 0.5 - 2.2 01/07/2015 [facility] CHEM PANEL Lipase Lvl 58 73 - 393 01/07/2015 [facility] CHEM PANEL eGFR 128 01/07/2015 Result Comment: The eGFR is calculated using the CKD-EPI formula. In most young, healthy individuals the eGFR will be >90 mL/min/1.73m2. The eGFR declines with age. An eGFR of 60-89 may be normal in some populations, particularly the elderly, for whom the CKD-EPI formula has not been extensively validated. Use of the eGFR is not recommended in the following populations:

Individuals with unstable creatinine concentrations, including patients and those with serious co-morbid conditions.

Patients with extremes in muscle mass or diet.

The data above are obtained from the National Kidney Disease Education Program (NKDEP) which additionally recommends that when the eGFR is used in patients with extremes of body mass index for purposes of drug dosing, the eGFR should be multiplied by the estimated BMI. [facility] CHEM PANEL AST 30 0 - 37 01/07/2015 [facility] CHEM PANEL Albumin Lvl 3.6 3.5 - 5.0 01/07/2015 [facility] CHEM PANEL ALT 72 0 - 65 01/07/2015 [facility] CHEM PANEL Sodium Lvl 134 135 - 145 01/07/2015 [facility] CHEM PANEL BUN 12 7 - 22 01/07/2015 [facility] CHEM PANEL Creatinine Lvl 0.55 0.50 - 1.40 01/07/2015 [facility] CHEM PANEL Alk Phos 94 39 - 136 01/07/2015 [facility] CHEM PANEL Bili Total 0.7 0.2 - 1.3 01/07/2015 [facility] CHEM PANEL Potassium Lvl 4.1 3.5 - 5.1 01/07/2015 [facility] CHEM PANEL Chloride Lvl 104 95 - 109 01/07/2015 [facility] CHEM PANEL Total Protein 7.6 6.4 - 8.4 01/07/2015 [facility] CHEM PANEL CO2 24 24 - 32 01/07/2015 [facility] CHEM PANEL Calcium Lvl 8.7 8.5 - 10.5 01/07/2015 [facility] CHEM PANEL Glucose Lvl 99 70 - 99 01/07/2015 [facility] CHEM PANEL A/G Ratio 0.9 0.7 - 1.6 01/07/2015 [facility] CHEM PANEL Globulin 4.0 2.0 - 4.0 01/07/2015 [facility] CHEM PANEL B/C Ratio 22 6 - 25 01/07/2015 [facility] CHEM PANEL AGAP 10.1 10.0 - 20.0 01/07/2015 [facility] HEMATOLOGY Basophils 0.2 0.0 - 1.0 01/07/2015 [facility] HEMATOLOGY Segs-Bands # 8.0 1.5 - 8.1 01/07/2015 [facility] HEMATOLOGY Monocytes 5.6 2.0 - 12.0 01/07/2015 [facility] HEMATOLOGY Eosinophils 0.1 0.0 - 4.0 01/07/2015 [facility] HEMATOLOGY Lymphocytes 5.4 20.0 - 40.0 01/07/2015 [facility] HEMATOLOGY Segs 88.7 45.0 - 75.0 01/07/2015 [facility] HEMATOLOGY Lymphocytes # 0.5 1.0 - 5.5 01/07/2015 [facility] HEMATOLOGY Monocytes # 0.5 0.0 - 0.8 01/07/2015 [facility] HEMATOLOGY WBC 9.0 3.7 - 10.4 01/07/2015 [facility] HEMATOLOGY RBC 4.69 4.20 - 5.40 01/07/2015 [facility] HEMATOLOGY Hgb 13.7 12.0 - 16.0 01/07/2015 [facility] HEMATOLOGY MCHC 32.9 32.0 - 36.0 01/07/2015 [facility] HEMATOLOGY RDW 13.6 11.5 - 14.5 01/07/2015 [facility] HEMATOLOGY Platelet 248 133 - 450 01/07/2015 [facility] HEMATOLOGY MPV 8.1 7.4 - 10.4 01/07/2015 [facility] HEMATOLOGY Hct 41.8 36.0 - 48.0 01/07/2015 [facility] HEMATOLOGY MCH 29.3 27.0 - 31.0 01/07/2015 [facility] HEMATOLOGY MCV 89.1 80.0 - 98.0 01/07/2015 [facility] URINE AND STOOL UA Urobilinogen <=1.0 mg/dL 0.1 - 1.0 01/07/2015 [facility] URINE AND STOOL UA Sq Epi Moderate /LPF Few /LPF 01/07/2015 [facility] URINE AND STOOL UA RBC 12 0 - 2 01/07/2015 [facility] URINE AND STOOL UA WBC <1 0 - 5 01/07/2015 [facility] URINE AND STOOL UA Nitrite Negative (01/07/15 11:43 AM) Negative 01/07/2015 [facility] URINE AND STOOL UA Leuk Est Negative (01/07/15 11:43 AM) Negative 01/07/2015 [facility] URINE AND STOOL UA Bili Negative *NA* (01/07/15 11:43 AM) Negative 01/07/2015 [facility] URINE AND STOOL UA Blood Negative (01/07/15 11:43 AM) Negative 01/07/2015 [facility] URINE AND STOOL UA Color Yellow *NA* (01/07/15 11:43 AM) Yellow 01/07/2015 [facility] URINE AND STOOL UA Turbidity Clear (01/07/15 11:43 AM) Clear 01/07/2015 [facility] URINE AND STOOL UA Ketones Negative mg/dL Negative mg/dL 01/07/2015 [facility] URINE AND STOOL UA Glucose Negative mg/dL Negative mg/dL 01/07/2015 [facility] URINE AND STOOL UA Protein Negative mg/dL Negative mg/dL 01/07/2015 [facility] URINE AND STOOL UA Spec Grav 1.025 <=1.030 01/07/2015 [facility] URINE AND STOOL UA pH 7.0 5.0 - 8.0 01/07/2015 [facility] URINE CHEM U Preg Negat anthony (01/07/15 11:43 AM) Negative 01/07/2015 [facility] [place]MISTRY [place] [id number] 04/08/2012 NA <sup>3</sup>Interpretive Data: Reference Range:
Male 0 - 5 mIU/mL
Non- Female 0 - 5 mIU/mL

Note: hCG result should be used in conjunction with symptoms, results
of other tests, and clinical impressions.

Weeks of Gestation hCG (mIU/mL)

3 6 - 71
4 10-750
5 217 - 7,138
6 158 -31,795
7 3,697 - 163,563
8 32,065 - 149,571
9 63,803 - 151,410
10 46,506 - 186,977
11 27,832 - 210,612
14 13,950 - 62,530
15 12,039 - 70,971
16 9,040 - 56,451
17 8,175 - 55,868
18 8,099 - 58,176 [facility] CHEMISTRY Amylase Lvl 23 25 - 115 04/08/2012 LOW [facility] CHEMISTRY Lipase Lvl 92 73 - 393 04/08/2012 Normal [facility] CHEMISTRY Globulin 4.1 2.0 - 4.0 04/08/2012 HI [facility] CHEMISTRY A/G Ratio 0.8 0.7 - 1.6 04/08/2012 Normal [facility] CHEMISTRY B/C Ratio 15 6 - 25 04/08/2012 Normal [facility] CHEMISTRY AGAP 11.4 10.0 - 20.0 04/08/2012 Normal [facility] CHEMISTRY ALT 26 0 - 65 04/08/2012 Normal [facility] CHEMISTRY Alk Phos 86 39 - 136 04/08/2012 Normal [facility] CHEMISTRY Bili Total 0.2 0.2 - 1.3 04/08/2012 Normal [facility] CHEMISTRY AST 15 0 - 37 04/08/2012 Normal [facility] CHEMISTRY Total Protein 7.4 6.4 - 8.4 04/08/2012 Normal [facility] CHEMISTRY eGFR 127 04/08/2012 NA <sup>1</sup>Result Comment: The eGFR is calculated using the CKD-EPI formula. In most young, healthy individuals the eGFR will be >90 mL/min/1.73m2. The eGFR declines with age. An eGFR of 60-89 may be normal in some populations, particularly the elderly, for whom the CKD-EPI formula has not been extensively validated. Use of the eGFR is not recommended in the following populations:& lt;br/>
Individuals with unstable creatinine concentrations, including patients and those with serious co-morbid conditions.

Patients with extremes in muscle mass or diet.

The data above are obtained from the National Kidney Disease Education Program (NKDEP) which additionally recommends that when the eGFR is used in patients with extremes of body mass index for purposes of drug dosing, the eGFR should be multiplied by the estimated BMI. [facility] CHEMISTRY Calcium Lvl 8.3 8.5 - 10.5 04/08/2012 LOW [facility] CHEMISTRY CO2 26 24 - 32 04/08/2012 Normal [facility] CHEMISTRY Glucose Lvl 80 70 - 99 04/08/2012 Normal <sup>2</sup>Interpretive Data: Adult ref erence range values reflect the clinical guidelines
of the [place] [employer]. [facility] CHEMISTRY BUN 9 7 - 22 04/08/2012 Normal [facility] CHEMISTRY Creatinine Lvl 0.6 0.5 - 1.4 04/08/2012 Normal [facility] CHEMISTRY Sodium Lvl 139 135 - 145 04/08/2012 Normal [facility] CHEMISTRY Potassium Lvl 3.4 3.5 - 5.1 04/08/2012 LOW [facility] CHEMISTRY Chloride Lvl 105 95 - 109 04/08/2012 Normal [facility] CHEMISTRY Albumin Lvl 3.3 3.5 - 5.0 04/08/2012 LOW [facility] HEMATOLOGY Basophils # 0.0 0.0 - 0.2 04/08/2012 Normal [facility] HEMATOLOGY Eosinophils 1.6 0.0 - 4.0 04/08/2012 Normal [facility] HEMATOLOGY Segs-Bands # 7.3 1.5 - 8.1 04/08/2012 Normal [facility] HEMATOLOGY Lymphocytes # 1.9 1.0 - 5.5 04/08/2012 Normal [facility] HEMATOLOGY Monocytes # 0.7 0.0 - 0.8 04/08/2012 Normal [facility] HEMATOLOGY Eosinophils # 0.2 0.0 - 0.5 04/08/2012 Normal [facility] HEMATOLOGY Basophils 0.4 0.0 - 1.0 04/08/2012 Normal [facility] HEMATOLOGY Segs 72.5 45.0 - 75.0 04/08/2012 Normal [facility] HEMATOLOGY Lymphocytes 18.7 20.0 - 40.0 04/08/2012 LOW [facility] HEMATOLOGY Monocytes 6.8 2.0 - 12.0 04/08/2012 Normal [facility] HEMATOLOGY MPV 8.1 7.4 - 10.4 04/08/2012 Normal [facility] HEMATOLOGY MCH 30.4 27.0 - 31.0 04/08/2012 Normal [facility] HEMATOLOGY Platelet 245 133 - 450 04/08/2012 Normal [facility] HEMATOLOGY RDW 12.8 11.5 - 14.5 04/08/2012 Normal [facility] HEMATOLOGY MCHC 33.1 32.0 - 36.0 04/08/2012 Normal [facility] HEMATOLOGY RBC 4.00 4.20 - 5.40 04/08/2012 LOW [facility] HEMATOLOGY MCV 91.8 81.0 - 99.0 04/08/2012 Normal [facility] HEMATOLOGY Hct 36.7 36.0 - 48.0 04/08/2012 Normal [facility] HEMATOLOGY Hgb 12.1 12.0 - 16.0 04/08/2012 Normal [facility] HEMATOLOGY WBC 10.1 3.7 - 10.4 04/08/2012 Normal [facility] CHEMISTRY U Preg Positi ve *ABN* (04/07/2012 19:10:00) Negati ve 04/08/2012 ABN [facility] URINALYSIS UA Urobilinogen 0.1 - 1.0 04/08/2012 NA [facility] URINALYSIS UA Nitrite Negat anthony (04/07/2012 19:10:00) Negati ve 04/08/2012 Normal [facility] URINALYSIS UA Ketones Negat anthony mg/dL *NA* (04/07/2012 19:10:00) Negati ve 04/08/2012 NA [facility] URINALYSIS UA Glucose Negat anthony mg/dL *NA* (04/07/2012 19:10:00) Negati ve 04/08/2012 NA [facility] URINALYSIS UA Protein Negat anthony mg/dL (04/07/2012 19:10:00) Negati ve 04/08/2012 Normal [facility] URINALYSIS UA Leuk Est Negat anthony (04/07/2012 19:10:00) Negati ve 04/08/2012 Normal [facility] URINALYSIS UA WBC 1 0 - 5 04/08/2012 Normal [facility] URINALYSIS UA Bili Negat anthony *NA* (04/07/2012 19:10:00) Negati ve 04/08/2012 NA [facility] URINALYSIS UA Blood Negat anthony (04/07/2012 19:10:00) Negati ve 04/08/2012 Normal [facility] URINALYSIS UA RBC 1 0 - 2 04/08/2012 Normal [facility] URINALYSIS UA Bacteria Occas ional /HPF *NA* (04/07/2012 19:10:00) None S een 04/08/2012 [facility] URINALYSIS UA Sq Epi Occas ional /LPF *NA* (04/07/2012 19:10:00) Few 04/08/2012 NA [facility] URINALYSIS UA pH 7.0 5.0 - 8.0 04/08/2012 Normal [facility] URINALYSIS UA Spec Grav 1.021 <=1.030 04/08/2012 Normal [facility] URINALYSIS UA Color Yello w *NA* (04/07/2012 19:10:00) Yellow 04/08/2012 [facility] URINALYSIS UA Turbidity Sligh t *ABN* (04/07/2012 19:10:00) Clear 04/08/2012 ABN [facility] Pathology Reports No Data Provided for This Section Diagnostic Reports Report Value Date Source Pelvis w Transvag and Pelvis Doppler US ULTRASOUND OF THE PELVIS TRANSABDOMINAL AND TRANSVAGINAL. Clinical Indication: - pelvic pain and discharge COMPARISON: None FINDINGS: TRANSABDOMINAL PELVIC ULTRASOUND: Transabdominal study was performed. Uterus: The uterus measures 97x 60x 42 mm. Uterine echogenicity and configuration is normal. There is no uterine mass. ENDOVAGINAL ULTRASOUND: Endovaginal exam was performed in order to better evaluate the uterus and ovaries. Endometrial complex/stripe: The endometrial stripe measures 7.6 mm. There is no uterine or endometrial mass. Right ovary: The right ovary measures 25x 17x 21 mm and appears normal. Left ovary: The left ovary measures 30x 20x 20 mm and appears normal. There is no adnexal mass or free fluid in the cul-de-sac. Continuous Doppler and color flow imaging of the ovaries was performed in order to exclude ovarian torsion. There is normal blood flow to both ovaries. IMPRESSION: 1. There is a 13 x 10 x 9 mm complex cys t in the right ovary. Assuming this patient has no clinical patient of infection or positive test this is most likely a hemorrhagic cyst. Resolution in 6 or 10 weeks assuming the patient has a normal 28 day cycle may obviate the need for further workup. SL: SROSENCLIFTON 08/23/2017 [facility] Abdomen RUQ US Study: Abdomen RUQ US Clinical Indication: Right upper quadrant pain Comparison: Right upper quadrant ultrasound from 01/07/2015 TECHNIQUE: Grayscale and limited color sonographic evaluation of the right upper quadrant was performed with standard technique. FINDINGS: The liver is normal in size and echotexture measuring 15.2 cm. The pancreas is obscured by bowel gas. IVC is patent. 3 cm calcified echogenic shadowing galls tone is seen. There is no significant gallbladder wall thickening or pericholecystic fluid.There is no biliary duct dilatation. Common bile duct measures 5.4 mm. Sonographic Ewing's sign is negative. The right kidney is normal in size and echotexture without stones or hydronephrosis. The right kidney measures 12.5 x 5.9 x 6 cm. The main portal vein is patent and with hepatopedal flow. No free fluid is noted. IMPRESSION: 1. Cholelithiasis without other evidence of acute cholecystitis. SL: [id number] 05/05/2015 [facility] ED Abdomen/Pelvis IV contrast only CT I. CT SCAN of the ABDOMEN with CONTRAST II. CT SCAN of the PELVIS with CONTRAST HISTORY: Generalized acute abdominal pain. Known 13 week demise. A pelvic ultrasound of 03/15/[address] SCAN of the ABDOMEN with CONTRAST TECHNIQUE: Helical CT images were obtained from the domes the diaphragms to the iliac crests following the administration of nonionic iodinated intravenous contrast. Oral contrast was not provided. II. CT SCAN of the PELVIS with CONTRAST TECHNIQUE: Helical CT images were obtained from the iliac crests to the pubic symphysis following the administration of nonionic iodinated intravenous contrast. Oral contrast was not provided. Sagittal and coronal reconstructions were provided. FINDINGS: The base of the appendix is prominent measuring approximately 9 mm in maximal diameter. There is slight density around the appendix which could represent early periappendiceal inflammatory change. There also a few small lymph nodes in the right lower quadrant mesentery. The findings could represent early or mild appendicitis. Please correlate with clinical examination. There is no appendicolith. There is no periappendiceal abscess. There is no free intraperitoneal gas, intra-abdominal abscess, ascites, or other fluid collection. The gastrointestinal structures are otherwise unremarkable. There is no evidence of obstruction or ileus. Again noted is an intrauterine gestation and mild enlargement of the uterus. It is noted there is an approximately 12-1/2 week intrauterine gestation which demonstrated no cardiac activity on a recent ultrasound consistent with demise. No significant hemorrhage or other abnormality is seen in the pelvis. The liver, spleen, pancreas, and adrenals are normal in appearance. The kidneys show good, symmetrical, excretion without hydronephrosis. No abdominal masses, adenopathy, ascites, or fluid collections are seen. The lung bases are clear. There are no pleural effusions. The heart is normal in size. The osseous structures are unremarkable. CONCLUSION: 1. Findings suggestive of mild or early appendicitis. Please see discussion above. The findings are not felt to be definitive for appendicitis but suggestive. Please correlate with clinical and laboratory information. 2. No free intraperitoneal gas, abscess, bowel obstruction, or other acute process. 3. Intrauterine gestation. This was demo nstrated to represent demise at approximately 12-1/2 weeks on a recent ultrasound of 03/19/2015. Coding: Abdomen/Pelvis w contrast CT SL: 13 Romain Rajput M.D. 03/22/2015 [facility] Preg < 14wks Single gest w Transvag US OBSTETRICAL ULTRASOUND (early ) 1. Transabdominal pelvic ultrasound. 2. Transvaginal pelvic ultrasound HISTORY: , [place] [address]. Pelvic cramping. No heart tones detected. COMMENT: The gravid uterus was evaluated utilizing dynamic scanning. A transabdominal and transvaginal study was performed. FINDINGS: I. Transabdominal pelvic ultrasound - the findings on the transabdominal pelvic ultrasound are similar to and best seen on the transvaginal study. Please refer to the subsequent report. FINDINGS: II. Transvaginal pelvic ultrasound. - please refer to report below. The examination is limited due to the patient's habitus. FINDINGS: 1. Findings consistent with demise . There is an approximately 12 week, 2 day fetus with no movement or cardiac activity demonstrated. No cardiac activity was demonstrated by M-mode Doppler. 2. Single intrauterine fetus without car diac activity at approximately 12 weeks, 2 days. 3. No adnexal masses or fluid collection s are seen. 4. The uterus measures 13 x 9.6 x 7.3 cm . No fibroids were demonstrated. 5. Both ovaries were visualized for the left ovary was not well visualized by the transvaginal study. The ovaries are unremarkable per the right ovary measures 2.7 x 2.6 x 1.6 cm The left ovary measures 2.5 x 2.5 x 2.3 cm. SL: Ramirez Rajput M.D. 03/19/2015 [facility] Abdomen RUQ US RIGHT UPPER ELOINA DRANT ULTRASOUND History: Right upper quadrant pain. Technique: The right upper quadrant was evaluated utilizing dynamic scanning. FINDINGS: Gallbladder: Cholelithiasis. There is approximately 1.7 cm gallstone. The gallbladder is contracted. There is no fluid around the gallbladder. There is no significant wall thickening. Common bile duct: Not dilated, 3 mm in diameter. Bile ducts: No intrahepatic ductal dilatation evident. Liver: There is mildly diffusely echogenicity the liver consistent with fatty change and/or diffuse hepatocellular disease. No focal lesions were seen. Right kidney: Normal in size and echogenicity without hydronephrosis. Right kidney size: 11.8 x 5.6 x 5.4 cm. CONCLUSION: 1. Cholelithiasis. 2. No biliary ductal dilatation. 3. Findings consistent with fatty change s or diffuse hepatocellular disease involving the liver. Coding: Abdomen RUQ US CPT code:65670 SL: Ramirez Rajput M.D. 01/07/2015 [facility] Consultation Notes No Data Provided for This Section Discharge Summaries No Data Provided for This Section History and Physicals No Data Provided for This Section Vital Signs Vital Sign Value Date Comments Source Temperature Oral (F) 98.8 F 08/24/2017 [facility] Respitory Rate 16 08/24/2017 [facility] Heart Rate 66 08/24/2017 [facility] Systolic (mm Hg) 114 08/24/2017 [facility] Diastolic (mm Hg) 69 08/24/2017 [facility] Temperature Oral (F) 100 F 08/23/2017 [facility] Systolic (mm Hg) 125 08/23/2017 [facility] Diastolic (mm Hg) 73 08/23/2017 [facility] Heart Rate 71 08/23/2017 [facility] Respitory Rate 18 08/23/2017 [facility] Systolic (mm Hg) 118 02/26/2016 [facility] Diastolic (mm Hg) 77 02/26/2016 [facility] Respitory Rate 18 02/26/2016 [facility] Respitory Rate 18 05/12/2015 [facility] Systolic (mm Hg) 114 05/12/2015 [facility] Diastolic (mm Hg) 60 05/12/2015 [facility] Systolic (mm Hg) 126 05/12/2015 [facility] Diastolic (mm Hg) 63 05/12/2015 [facility] Respitory Rate 18 05/12/2015 [facility] Respitory Rate 15 05/12/2015 [facility] Systolic (mm Hg) 120 05/12/2015 [facility] Diastolic (mm Hg) 67 05/12/2015 [facility] Heart Rate 80 05/08/2015 [facility] Temperature Oral (F) 98.4 F 05/08/2015 [facility] Height 167.64 cm 05/08/2015 [facility] Weight 114.545 05/08/2015 [facility] BMI Calculated 40.76 05/08/2015 [facility] Systolic (mm Hg) 140 05/06/2015 [facility] Diastolic (mm Hg) 68 05/06/2015 [facility] Respitory Rate 17 05/06/2015 [facility] Temperature Oral (F) 98.4 F 05/06/2015 [facility] Heart Rate 83 05/06/2015 [facility] Systolic (mm Hg) 138 05/06/2015 [facility] Diastolic (mm Hg) 72 05/06/2015 [facility] Temperature Oral (F) 98.6 F 05/06/2015 [facility] Heart Rate 91 05/06/2015 [facility] Respitory Rate 18 05/06/2015 [facility] Height 170.18 cm 05/05/2015 [facility] BMI Calculated 39.24 05/05/2015 [facility] Weight 113.636 05/05/2015 [facility] Systolic (mm Hg) 150 05/05/2015 [facility] Diastolic (mm Hg) 81 05/05/2015 [facility] Heart Rate 106 05/05/2015 [facility] Respitory Rate 18 05/05/2015 [facility] Temperature Oral (F) 98.8 F 05/05/2015 [facility] Heart Rate 76 03/23/2015 [facility] Temperature Oral (F) 98.5 F 03/23/2015 [facility] Systolic (mm Hg) 110 03/23/2015 [facility] Diastolic (mm Hg) 70 03/23/2015 [facility] Respitory Rate 16 03/23/2015 [facility] Temperature Oral (F) 98.5 F 03/23/2015 [facility] Heart Rate 73 03/23/2015 [facility] Respitory Rate 16 03/23/2015 [facility] Systolic (mm Hg) 109 03/23/2015 [facility] Diastolic (mm Hg) 73 03/23/2015 [facility] Respitory Rate 16 03/23/2015 [facility] Heart Rate 84 03/23/2015 [facility] Systolic (mm Hg) 134 03/23/2015 [facility] Diastolic (mm Hg) 85 03/23/2015 [facility] Temperature Oral (F) 99.2 F 03/23/2015 [facility] Weight 113.636 03/22/2015 [facility] BMI Calculated 39.24 03/22/2015 [facility] Height 170.18 cm 03/22/2015 [facility] Weight 113.636 03/22/2015 [facility] Temperature Oral (F) 98.2 F 03/19/2015 [facility] Heart Rate 80 03/19/2015 [facility] Systolic (mm Hg) 132 03/19/2015 [facility] Diastolic (mm Hg) 78 03/19/2015 [facility] Respitory Rate 16 03/19/2015 [facility] Systolic (mm Hg) 138 03/19/2015 [facility] Heart Rate 80 03/19/2015 [facility] Diastolic (mm Hg) 68 03/19/2015 [facility] Respitory Rate 18 03/19/2015 [facility] Height 170.18 cm 03/19/2015 [facility] Weight 115.909 03/19/2015 [facility] BMI Calculated 40.02 03/19/2015 [facility] Systolic (mm Hg) 145 03/19/2015 [facility] Diastolic (mm Hg) 77 03/19/2015 [facility] Heart Rate 78 03/19/2015 [facility] Respitory Rate 18 03/19/2015 [facility] Temperature Oral (F) 98.1 F 03/19/2015 [facility] Respitory Rate 16 01/07/2015 [facility] Heart Rate 107 01/07/2015 [facility] Systolic (mm Hg) 118 01/07/2015 [facility] Diastolic (mm Hg) 68 01/07/2015 [facility] Temperature Oral (F) 98.5 F 01/07/2015 [facility] BMI Calculated 58.36 01/07/2015 [facility] Weight 159.091 01/07/2015 [facility] Heart Rate 131 01/07/2015 [facility] Respitory Rate 18 01/07/2015 [facility] Temperature Oral (F) 98.5 F 01/07/2015 [facility] Height 165.1 cm 01/07/2015 [facility] Systolic (mm Hg) 128 01/07/2015 [facility] Diastolic (mm Hg) 84 01/07/2015 [facility] Height 167.64 cm 04/08/2012 [facility] Weight 113.636 04/08/2012 [facility] Encounters Location Location Details Encounter Type Encounter Number Reason For Visit Attending Provider ADM Date DC Date Status Source [facility] Emergency [id number] ABDOMINAL PAIN TATYANA DELLA 04/07/2012 04/07/2012 Active [facility] [id number] 01 Watson Sabinonilsa 01/07/2015 01/07/2015 [facility] [id number] 02 Leonardo Restrepolam 03/19/2015 03/19/2015 [facility] Inpatient [id number] Jitendra Crowley 03/22/2015 03/23/2015 [facility] [id number] Reza Lagos 05/05/2015 05/06/2015 [facility] Outpatient [id number] ZAMUDIO LE 05/08/[address] [facility] Outpatient [id number] ZAMUDIO LE 05/12/2015 [facility] OBS Day Surgery [id number] Zamudio Le 0 05/12/2015 05/12/2015 [facility] Outpatient [id number] ZAMUDIO LE 05/20/2015 [facility] Bedded Outpatient [id number] Rolf Moran 02/26/2016 02/26/2016 [facility] Emergency [id number] Chencho Cadetal 08/23/2017 08/24/2017 [facility] Procedures Procedure Code Date Perfomer Comments Source Laparoscopic cholecystectomy 4 [id number] 05/12/2015 [facility] Appendectomy [id number] 03/22/2015 [facility] D&C - Dilatation and curettage [id number] 03/22/2015 [facility] CS - section [id number] [facility] Assessment and Plan Assessment and Plan Date Source Extracted from:Title: Clinical Document Author: Robb Vasquez MD Date: 05/12/15 DATE OF PROCEDURE: 05/12/2015. PREOPERATIVE DIAGNOSIS: Gallstones. POSTOPERATIVE DIAGNOSIS: Gallstones. TECHNICAL PROCEDURE PERFORMED: Laparoscopic cholecystectomy. SURGEON: Robb Vasquez M.D. ANESTHESIA: General endotracheal. SURGICAL WOUND CLASSIFICATION: Clean contaminate. OPERATIVE TIME: 35 minutes. ESTIMATED BLOOD LOSS: Minimal. FLUID REPLACEMENT: Per anesthesia. SPECIMENS SENT FOR PATHOLOGY: Gallbladder. COMPLICATIONS: None. FINDINGS: 1. Well visualized critical view. 2. Gallstones. CONDITION: To recovery, stable. POSTOPERATIVE PLAN: To the floor INDICATIONS: A 29-year-old lady that presented to [facility] with abdominal pain. At this time, the history and physical as well as laboratory studies was consistent with diagnosis of gallstones. Therefore, the option of laparoscopic versus open cholecystectomy was offered to the patient. Risks and benefits of the procedure were explained and the patient voiced understanding and consented to procedure. OPERATIVE NARRATIVE: Patient was taken the operating room, placed on the operating table, intubated by anesthesia. The abdomen was prepped and draped in the usual sterile fashion. A timeout was called and the correct patient, as well as procedure was verified. The patient had SCDs on for thromboembolic prophylaxis and received antibiotics within 1 hour of the incision. Umbilical region was identified, 0.5% Marcaine was infused followed 1-cm incision followed by dissection of the fascia. The fascia was grasped with a Jose Luis clamp and a Veress was place, confirmed with a positive saline drop test. Pneumoperitoneum was achieved with CO2 gas up to 15 mmHg. A 1-cm trocar was placed in the umbilical incision. The patient was placed in reverse Trendelenburg position airplaned to the left; 0.5 cm trocars were introduced in the epigastrium, right upper quadrant right periumbilical regions under direct visualization. The gallbladder was identified. It was grasped at the fundus and retracted to the head, infundibulum was identified, grasped and retracted towards the legs, exposing the triangle of Calot. The cystic duct was identified, it was dissected out from all surrounding structures, clipped proximally 3 times, distally once, transected in between. Of note, a well visualized critical view was identified; therefore we bypassed cholangiogram. The dissection continued to identify the cystic artery, it was dissected out from all surrounding structures, clipped proximally twice, distally once, and transected in between. The gallbladder was then elevated off the liver bed using electrocautery. It was placed in the Endopouch bag and removed from the abdomen through the umbilical port. The liver bed was inspected, all residual bleeding was identified and controlled. The abdomen was irrigated with copious amounts water until clear return was achieved. The patient was placed flat and all residual irrigation was suctioned out. The pneumoperitoneum was decom pressed and the fascia at the umbilical port was closed using 0 Vicryl in a [id number] manner, and the skin was closed using 4-0 Monocryl in running subcuticular manner. The skin and three 5-mm ports were closed using 4-0 Monocryl in simple U-stitch manner. The patient was extubated in the operating room and transferred to recovery in stable condition. All instrument and laparotomy counts were correct. 05/12/2015 [facility] Extracted from:Title: Clinical Document Author: Jitendra Crowley MD Date: 03/23/15 Progress Note - Daily [facility] Completed: Mar, 11:53 by Jitendra Crowley MD RM: [id number] - 1P, SE C4B SHELL, DESIRE 29y (: 1985) F Attending: Jitendra Crowley MD Service: General Surgery Service Reason for Admission: RUQ PAIN, ACUTE APPENDICITIS, DEMISE Working DRG: Other digestive system diagnoses w/o CC/MCFP Code status: Full Code [Ordered] Current diet: Isolation: None Documented Allergies: NKDA SUBJECTIVE Pain decreased. Amb. Deb po. OBJECTIVE And w incisional tenderness and no peritonitis 24hr Labs 03/23 0415 WBC 8.9 RBC 3.70 L Hgb 11.2 L Hct 32.9 L MCV 88.9 MCH 30.3 MCHC 34.1 RDW 13.0 Platelet 236 MPV 8.3 Segs 84.6 H Monocytes 4.6 Lymphocytes 10.1 L Eosinophils 0.2 Basophils 0.5 Segs-Bands # 7.5 Lymphocytes # 0.9 L Monocytes # 0.4 Neely still necessary (Yes/No): Line still necessary (Yes/No): Vitals Tmp(F) Pulse BP RR SpO2 FIO2 03/23 07:41 98.5 73 109/73 1 6 --- --- 03/23 03:28 ---- --- ----- 1 6 95 21% 03/23 02:11 ---- 84 134/85 1 6 --- --- 03/23 01:41 ---- 88 107/62 1 6 --- --- 03/23 01:11 ---- 74 123/74 1 4 --- --- 24 Hr Tmax: 99.2F (37.33c) at 03/22 20:5 2 Vital Signs are the last 5 in the past 48 hours. Date Wt(kg) Wt(lb) Ht(cm) Ht(in) Method 03/22 (initial) 113.64 250.00 Measured 03/22 170.18 67.00 Stated I&O Record In Out Bal 03/23 24hr Tot 1000 0 1000 03/22 24hr Tot 2458 100 2358 Medications (17) Active Scheduled Meds (1): 03/23/15 pantoprazole (Protonix) 40 mg P O BID-Before Meals Unscheduled Meds: None PRN Meds (4): 03/22/15 acetaminophen-codeine (acetamin ophen-codeine #3) 1 tab PO Q4H 03/22/15 acetaminophen-codeine (acetamin ophen-codeine #3) 2 tab PO Q4H 03/22/15 morphine Sulfate 1 mg IVP Q3H 03/22/15 promethazine + Sodium Chloride 0.9% IV 50 mL (Phenergan + Sodium Chloride 0.9% IV 50 mL) 12.5 mg IVPB Q6H 151.5 ml/hr One Time Meds (11): (Completed) ceFAZolin (ceFAZolin (ANES)) IV ONCE 03/22/15 (Completed) cefOXitin (Mefoxin ) 2 gm IVPB ONCE (Completed) fentaNYL (fentaNYL (ANES)) IV ONCE (Completed) ketOROLAC (ketOROLAC (ANES)) IV ONCE 03/23/15 (Discontinued) ketOROLAC 30 mg IVP ONCE (Completed) midazolam (midazolam (ANES)) IV ONCE 03/22/15 (Completed) morphine Sulfate 4 mg IVP ONCE 03/22/15 (Completed) ondansetron (Zofra n) 4 mg IVP ONCE (Completed) ondansetron (ondansetron (ANES)) IV ONCE (Completed) propofol (propofol (ANES)) IV ONCE (Completed) rocuronium (rocuronium (ANES)) IV ONCE Continuous Infusions (1): 03/22/15 Sodium Chloride 0.9% IV 1,000 m L (normal saline 0.9% IV 1,000 mL) 1,000 mL 100 ml/hr ASSESSMENT and EXAM PLAN and TREATMENT Discharge home. DIAGNOSES and PROBLEMS Ready for Discharge (Yes/No)? TEACHING ATTESTATION 03/23/2015 [facility] Plan of Care No Data Provided for This Section Social History Social History Date Source Social History TypeResponse Alcohol Current, Type Beer. Frequency: 1-2 times per month. Previous treatment: None. Smoking Status Never smoker; Exposure to Tobacco Smoke None; Cigarette Smoking Last 365 Days No; Reg Smoking Cessation Counseling No1 entered on: 08/23/17 1husband smokes outside 2015 [facility] Family History No Data Provided for This Section Advance Directives No Data Provided for This Section Functional Status No Data Provided for This Section
--- OUTSIDE RECORDS SUMMARY | 2019-09-17 11:12 | XMS REPORT | Clinical Summary ---
Author Author [facility] Organization [facility] Address Unknown Phone Unavailable Care Team Providers Care Hypertrichologist Name Role Phone Anatoliy Landers MD PCP Allergies No Known Allergies Medications End Date Status Medication Sig Dispensed Refills Start Date Active piroxicam (FELDENE) 10 mg Take 1 90 capsule 1 capsuleIndications: capsule by 8 Injury of left wrist, mouth daily. subsequent encounter Active dicyclomine (BENTYL) 10 Take 1 120 capsule 2 mg capsuleIndications: capsule by 8 Irritable bowel syndrome mouth 4 times with constipation daily (before meals and nightly). Active piroxicam (FELDENE) 10 mg Take 10 mg by 0 / capsule mouth. 8 Active methocarbamol Take 1 tablet 30 tablet 0 (ROBAXIN-750) 750 mg by mouth 2 9 tabletIndications: Acute times daily left-sided low back pain as needed for without sciatica Pain. Active naproxen (NAPROSYN) 500 Take 1 tablet 30 tablet 0 mg tabletIndications: by mouth 2 9 Acute left-sided low back times daily pain without sciatica (with meals). Active Problems Problem Noted Date S/P appendectomy ~ 201511/02/2017 Irritable bowel syndrome with constipation 8 Injury of left wrist 11/02/2017 Internal and external hemorrhoids without complicatio n 11/02/2017 LPRD (laryngopharyngeal reflux disease) 05/27/2016 S/P cholecystectomy 06/03/2015 Pain, dental 09/05/2013 Gingivitis 09/05/2013 Anxiety attack 05/23/2009 Obesity (BMI 35.0-39.9 without comorbidity) 04/19/19 10 Immunizations Name Administration Dates Next Due Influenza Vaccine 12/19/2017 (Deferred: Other ), 11/11/2012 Tdap (Tetanus Toxoid, 09/28/2017 (Deferred: Other - Patient requested to Reduced Diphtheria Toxoid wait until maybe next visi t) And Acellular Pertussis, Absorbed) Family History Medical History Relation Name Comments Cancer Maternal colon CA dx at 60yo Grandfather Diabetes Maternal Grandfather Heart Maternal Grandfather Diabetes Maternal Grandmother Relation Name Status Comments Father Alive Maternal Grandfather colon cancer Maternal Grandmother Alive Mother Alive Paternal Grandfather Alive Paternal Grandmother Alive Sister Alive Sister Alive Son Alive Son Alive Social History Date Tobacco Use Types Packs/Day Years Used Never Smoker Smokeless Tobacco: Never Used Tobacco Cessation: Counseling Given: No Drinks/Week oz/Week Comments Alcohol Use social Yes Food Insecurity Answer Date Recorded Within the past 12 months, you worried that your Never nima e 08/29/2017 food would run out before you got money to buy more. Within the past 12 months, the food you bought Never true 08/29/2017 just didn't last and you didn't have mo rosey to get more. Sex Assigned at Date Recorded Not on file Industry Job Start Date Occupation Not on file Not on file Not on file Travel End Travel History Travel Start No recent travel history available. Last Filed Vital Signs Not on file Plan of Treatment Health Maintenance Due Date Last Done Comments Cervical Cancer Scrn (3 06/02/2018 06/03/2015 Yrs) (Previously completed - External) Results Not on fileafter 09/16/2018 Insurance Type Payer Benefit Subscriber ID Effective Phone Address Plan / Dates Group [facility] SELF-PAY SELF-PAY xxxxxx 2019- [phone] [id number] [place] [address]
[2019-09-17 11:13] LABS: BILIRUBIN,URINE SMALL (NEGATIVE); KETONES,URINE NEGATIVE (NEGATIVE); LEUKOCYTE ESTERASE ,URINE TRACE (NEGATIVE); NITRITE,URINE NEGATIVE (NEGATIVE); PROTEIN,URINE DIPSTICK 1+ (NEGATIVE); URINE UROBILINOGEN 0.2 mg/dL (0.2 - 1)
--- OUTSIDE RECORDS SUMMARY | 2019-09-17 11:13 | XMS REPORT | Summary of Care ---
Author Author [facility] Organization [facility] Address Unknown Phone Unavailable Encounter MATTHEW Holloway(GAUDENCIO) [id number] Date(s): 08/23/17 - 08/24/17 [facility] [address] [place] [address]- Encounter Diagnosis Cyst, ovarian (Discharge Diagnosis) - 08/23/17 Unspecified ovarian cyst, right side (Final) - 08/29/17 Discharge Disposition: Home or Self Care Attending Physician: Chencho Johnson MD Vital Signs Most recent to 1 2 oldest [Reference Range]: Temperature Oral 98.8 DegF 100 DegF [96.4-99.1 DegF] (08/23/17 11:13 PM) *HI* (08/23/17 6:48 PM) Blood Pressure 114/69 mmHg 125/73 mmHg [90-140/60-90 mmHg] (08/23/17 11:13 PM) (08/23/17 6:48 PM) Respiratory Rate 16 BRMIN 18 BRMIN [14-20 BRMIN] (08/23/17 11:13 PM) (08/23/17 6:48 PM) Peripheral Pulse 66 bpm 71 bpm Rate [60-100 bpm] (08/23/17 11:13 PM) (08/23/17 6:48 PM) Problem List Condition Effective Dates Status Health Status Informan t Anxiety(Confirmed) Active Asthma(Confirmed) Resolved Cholelithiasis(Confi Active rmed) Gastritis(Confirmed) Resolved Morbid Active obesity(Confirmed) Allergies, Adverse Reactions, Alerts Substance Reaction Severity Status NKDA Active Medications ibuprofen 800 mg oral tablet 800 mg = 1 tab, PO, Q8H, not to exceed 3200 mg/day with food or milk, X 7 day , # 21 tab, 0 Refill(s) Start Date: 08/23/17 Stop Date: 08/30/17 Status: Completed ketOROLAC 30 mg, Route: IVP, Drug form: INJ, ONCE, Dosing Weight 115.028, kg, Priority: ST AT, Start date: 08/23/17 20:31:00 CDT, Stop date: 08/23/17 20:31:00 CDT Start Date: 08/23/17 Stop Date: 08/23/17 Status: Completed Sodium Chloride 0.9% (Bolus) IV 1,000 mL, Infuse Over: 1 hr, Route: IV, ONCE, Priority: STAT, Dosing Weight 115. 028 kg, Start date: 08/23/17 20:31:00 CDT, Stop date: 08/23/17 20:31:00 CDT Start Date: 08/23/17 Stop Date: 08/23/17 Status: Completed tramadol 50 mg oral tablet 50 mg = 1 tab, PO, Q4H, not to exceed 400 mg/day, X 3 day, # 18 tab, 0 Refill(s) Start Date: 08/23/17 Stop Date: 08/26/17 Status: Completed Results ELECTROLYTES Most recent to 1 oldest [Reference Range]: Sodium Lvl [135-145 139 mEq/L mEq/L] (08/23/17 8:03 PM) Potassium Lvl 3.9 mEq/L [3.5-5.1 mEq/L] (08/23/17 8:03 PM) Chloride Lvl [95-109 106 mEq/L mEq/L] (08/23/17 8:03 PM) CO2 [24-32 mEq/L] 28 mEq/L (08/23/17 8:03 PM) AGAP [10.0-20.0 8.9 mEq/L mEq/L] *LOW* (08/23/17 8:03 PM) CHEM PANEL Most recent to 1 oldest [Reference Range]: Creatinine Lvl 0.93 mg/dL [0.50-1.40 mg/dL] (08/23/17 8:03 PM) eGFR 83 mL/min/1.73m2 1 *NA* (08/23/17 8:03 PM) BUN [7-22 mg/dL] 13 mg/dL (08/23/17 8:03 PM) B/C Ratio [6-25] 14 (08/23/17 8:03 PM) Glucose Lvl [70-99 83 mg/dL mg/dL] (08/23/17 8:03 PM) Total Protein 7.9 g/dL [6.4-8.4 g/dL] (08/23/17 8:03 PM) Albumin Lvl [3.5-5.0 4.1 g/dL g/dL] (08/23/17 8:03 PM) Globulin [2.7-4.2 3.8 g/dL g/dL] (08/23/17 8:03 PM) A/G Ratio [0.7-1.6] 1.1 (08/23/17 8:03 PM) Calcium Lvl 8.8 mg/dL [8.5-10.5 mg/dL] (08/23/17 8:03 PM) ALT [0-65 unit/L] 19 unit/L (08/23/17 8:03 PM) AST [0-37 unit/L] 6 unit/L (08/23/17 8:03 PM) Alk Phos [39-136 71 unit/L unit/L] (08/23/17 8:03 PM) Bili Total [0.2-1.3 0.5 mg/dL mg/dL] (08/23/17 8:03 PM) Lipase Lvl [73-393 91 unit/L unit/L] (08/23/17 8:03 PM) 1Result Comment: The eGFR is calculated using the [...] from the National Kidney Disease Education Program ( NKDEP) which additionally recommends that when the eGFR is used in patients with extremes of body mass index for purposes of drug dosing, the eGFR should be mul tiplied by the estimated BMI. URINE CHEM Most recent to 1 oldest [Reference Range]: U Preg [Negative] Negative (08/23/17 8:03 PM) URINE AND STOOL Most recent to 1 oldest [Reference Range]: UA Turbidity [Clear] Clear (08/23/17 8:03 PM) UA Color Ltyellow *NA* (08/23/17 8:03 PM) UA pH [5.0-8.0] 6.0 (08/23/17 8:03 PM) UA Spec Grav 1.018 [<=1.030] (08/23/17 8:03 PM) UA Glucose [Negative Negative mg/dL mg/dL] *NA* (08/23/17 8:03 PM) UA Blood [Negative] Negative (08/23/17 8:03 PM) UA Ketones [Negative Negative mg/dL mg/dL] *NA* (08/23/17 8:03 PM) UA Protein [Negative Negative mg/dL mg/dL] (08/23/17 8:03 PM) UA Urobilinogen <=1.0 mg/dL [0.1-1.0 mg/dL] *NA* (08/23/17 8:03 PM) UA Bili [Negative] Negative *NA* (08/23/17 8:03 PM) UA Leuk Est Negative [Negative] (08/23/17 8:03 PM) UA Nitrite Negative [Negative] (08/23/17 8:03 PM) UA WBC [0-5 /HPF] <1 /HPF (08/23/17 8:03 PM) UA RBC [0-2 /HPF] 1 /HPF (08/23/17 8:03 PM) UA Bacteria [None Occasional /HPF Seen /HPF] *NA* (08/23/17 8:03 PM) UA Sq Epi [Few /LPF] Few /LPF *NA* (08/23/17 8:03 PM) HEMATOLOGY Most recent to 1 oldest [Reference Range]: WBC [3.7-10.4 K/CMM] 7.2 K/CMM (08/23/17 8:03 PM) RBC [4.20-5.40 4.54 M/CMM M/CMM] (08/23/17 8:03 PM) Hgb [12.0-16.0 g/dL] 14.0 g/dL (08/23/17 8:03 PM) Hct [36.0-48.0 %] 41.1 % (08/23/17 8:03 PM) MCV [80.0-98.0 fL] 90.6 fL (08/23/17 8:03 PM) MCH [27.0-31.0 pg] 30.9 pg (08/23/17 8:03 PM) MCHC [32.0-36.0 34.1 g/dL g/dL] (08/23/17 8:03 PM) RDW [11.5-14.5 %] 13.2 % (08/23/17 8:03 PM) MPV [7.4-10.4 fL] 7.9 fL (08/23/17 8:03 PM) Platelet [133-450 255 K/CMM K/CMM] (08/23/17 8:03 PM) Segs [45.0-75.0 %] 63.5 % (08/23/17 8:03 PM) Lymphocytes 25.9 % [20.0-40.0 %] (08/23/17 8:03 PM) Monocytes [2.0-12.0 7.6 % %] (08/23/17 8:03 PM) Eosinophils [0.0-4.0 2.6 % %] (08/23/17 8:03 PM) Basophils [0.0-1.0 0.4 % %] (08/23/17 8:03 PM) Neutrophils # 4.6 K/CMM [1.5-8.1 K/CMM] (08/23/17 8:03 PM) Lymphocytes # 1.9 K/CMM [1.0-5.5 K/CMM] (08/23/17 8:03 PM) Monocytes # [0.0-0.8 0.6 K/CMM K/CMM] (08/23/17 8:03 PM) Eosinophils # 0.2 K/CMM [0.0-0.5 K/CMM] (08/23/17 8:03 PM) MOLECULAR DIAGNOSTIC Most recent to 1 oldest [Reference Range]: Source APTIMA Endocervix *NA* (08/23/17 9:08 PM) N gonorrhea by Amp Negative Det (APTIMA) *NA* [Negative] (08/23/17 9:08 PM) C trachomatis by Amp Negative Det (APTIMA) *NA* [Negative] (08/23/17 9:08 PM) Immunizations No data available for this section Procedures Procedure Date Related Diagnosis Body Site Status Laparoscopic cholecystectomy 05/12/15 Completed Appendectomy 03/22/15 Completed D&C - Dilatation and curettage 03/22/15 Complet ed CS - section Completed CS - section Completed Social History Social History Type Response Alcohol Current, Type Beer. Freque ncy: 1-2 times per month. Previous treatment: None. Smoking Status Never smoker; Exposure to T obacco Smoke None; Cigarette Smoking Last 365 Days No; Reg Smoking Cessation Counseli phillip No1 entered on: 08/23/17 1husband smokes outside Assessment and Plan No data available for this section
--- OUTSIDE RECORDS SUMMARY | 2019-09-17 11:13 | XMS REPORT | Continuity of Care Document ---
Author Author [facility] t Organization [facility] Address [address] [place] [address] Phone Unavailable Care Team Providers Care Recreation Assistant Name Role Phone Leesa MILLAN, Olive Cope PCP Chencho Johnson Attphys Physician, Associated Non Attphys Unavailable Jayne Vasquez Attphys Reza Lagos Attphys Francheska Crowley Attphys Alexia Johnson Attphys Morro Hammond Attphys Francheska Crowley Admphys Payers Payer Name Policy Type Policy Number Effective Date Expiration Date S ource Problems Condition Name Condition Details Condition Category Status Onset Date Resolution Date Last Treatment Date Treating Clinician Comments Source S/P appendectomy ~ 2015 S/P appendectomy ~ 2016 Disease Active 2017-11-02 00:00:00 [facility] Irritable bowel syndrome with constipation Irritable b owel syndrome with constipation Disease Active 2017-11-02 00:00:00 [facility] Injury of left wrist Injury of left wrist Disease Active 00:00:00 [facility] Internal and external hemorrhoids without complication Internal and external hemorrhoids without complication Disease Active 2017-11-02 00:00:00 [facility] STOMACH SWELLING STOM ACH SWELLING Active 08/23/2017 [facility] Active 2017-08-23 00:00:00 2017-09-09 13:16:00 [facility] LPRD (laryngopharyngeal reflux disease) LPRD (laryngopharyng eal reflux disease) Disease Active 2016-05-27 00:00:00 [facility] UNK UNK Active 02/19/2016 [facility] Active 2016-02-19 00:00:00 2016-02-26 09:43:00 [facility] S/P cholecystectomy S/P cholecystectomy Disease Active 2015-06-03 00:00 :00 [facility] ABD PAIN ABD PAIN Active 05/05/2015 [facility] Active 2015-05-05 00:00:00 2015-05-05 20:39:00 [facility] RUQ PAIN, ACUTE APPENDICITIS, ED RUQ PAIN, ACUTE APPENDICITIS, ED Active 03/22/2015 [facility] Diagnosis Ac tive 2015-03-22 00:00:00 2015-04-24 14:13:00 M ann-mar[facility] HEART PALPITATIONS/ ABDOMINAL PAIN HEART PALPITATIONS/ ABDOMINAL PAIN Active 03/19/2015 [facility] Active 2015-03-19 00:00:00 2015-03-19 09:05:00 [facility] ABD-OTHER ABD- OTHER Active 01/07/2015 [facility] Active 2015-01-07 00:00:00 2015-02-13 14:46:00 [facility] Pain, dental Pain, dental Disease Active 2013-09-05 00:00:00 [facility] Gingivitis Gingivitis Disease Active 2013-09-05 00:00:00 [facility] ABDOMINAL PAIN ABDO NADJA PAIN Active 04/06/2012 [facility] Active 2012-04-06 00:00:00 2012-04-21 11:25:00 [facility] Anxiety attack Anxiety attack Disease Active 2009-05-23 00:00:00 [facility] Obesity (BMI 35.0-39.9 without comorbidity) Obesity (B WV 35.0-39.9 without comorbidity) Disease Active 2009-04-18 00:00:00 [facility] Final: Missed Lena l: Missed 03/22/2015 [facility] Problem 2015-03-22 04:54:27 [facility] Final: 13 weeks gestation of Final: 13 weeks gestation of 03/22/2015 [facility] Problem 2015-03-22 04:54:27 [facility] Asthma (disorder) Asth ma (disorder) Resolved Problem 03/12/2018 [facility] Problem Resolved 2018-03-12 16:02:56 [facility] Gastritis (disorder) Martita ritis (disorder) Resolved Problem 03/12/2018 [facility] Problem Resolved 2018-03-12 16:02: 56 [facility] Anxiety (finding) Anxi ety (finding) Active Problem 03/12/2018 [facility] Active 2018-03-12 16:02:56 [facility] Calculus in biliary tract (disorder) Calculus in biliary tract (disorder) Active Problem 03/12/2018 [facility] Problem Active 2018-03-12 16:02:56 [facility] Morbid obesity (disorder) Morb id obesity (disorder) Active Problem 03/12/2018 [facility] Problem Active 2018-03-12 16:0 2:56 [facility] UNSPECIFIED ACUTE APPENDICITIS UNSPECIFIED ACUTE APPENDICITIS Active [facility] Diagnosis Active 2015-04-24 14 :13:00 [facility] Unspecified ovarian cyst, right side Unspecified ovarian cyst, right side 08/30/2017 03/12/2018 [facility] Problem 2017-08-30 03:23:11 2018-03-12 16:02:56 2018-03-12 16:02:56 [facility] Unspecified ovarian cyst, unspecified side Unspecified ovarian cyst, unspecified side 08/23/2017 03/12/2018 [facility] Problem 2017-08-23 05:00:00 2018-03-12 16:02:56 2018-03-12 16:02:56 [facility] Discharge Diagnosis: Other cholelithiasis without obst ruction Discharge Diagnosis: Other cholelithiasis without obstruction 05/05/2015 05/09/2015 [facility] Problem 2015-05-05 05:00:00 2015-05-09 04: 15:36 2015-05-09 04:15:36 [facility] Discharge Diagnosis: Abnormality in feta l heart rate and rhythm complicating labor and delivery Discharge Diagno sis: Abnormality in heart rate and rhythm complicating labor and delivery 03/19/2015 03/22/2015 [facility] Problem 2015-03-19 06:00:00 2015-03-22 04:54:27 2 04:54:27 [facility] Discharge Diagnosis: Biliary colic Discharge Diagnosis: Biliary colic 01/07/2015 01/10/2015 [facility] Problem 2015-01-07 06:00:00 2015-01-10 04:43:28 2015-01-10 04:43:28 [facility] Allergies, Adverse Reactions, Alerts Allergy Name Allergy Type Status Severity Reaction(s) Onset Date Inacti ve Date Treating Clinician Comments Source No Known Allergies DA Active U 2018-12-30 00:00:00 [facility] No Known Allergies DA Active U 2015-07-31 00:00:00 [facility] Family History Family Member Diagnosis Comments Start Date Stop Date Source Maternal grandfather Cancer [facility] Maternal grandfather Diabetes [facility] Maternal grandfather Heart [facility] Maternal grandmother Diabetes [facility] Social History Social Habit Start Date Stop Date Quantity Comments Source Sex Assigned [facility] Alcohol intake 2018-07-12 00:00:00 2018-07-12 00:00:00 Current drinker of alcohol (finding) [facility] Alcohol Comment 2018-06-03 00:00:00 2018-06-03 00:00:00 social [facility] SDOH Food Worry 2017-08-29 00:00:00 2017-08-29 00:00:00 1 [facility] SDOH Food Scarcity 2017-08-29 00:00:00 2017-08-29 00:00:00 1 [facility] Social History 2015-05-08 20:04:07 2015-05-08 20:04:07 [facility] Smoking Status Start Date Stop Date Source Never smoker [facility] Medications Ordered Medication Name Filled Medication Name Start Date Stop Da te Current Medication? Ordering Clinician Indication Dosage Frequency Signature (SIG) Comments Components Source methocarbamol (ROBAXIN-750) 750 mg tablet 2018-07-06 00:00:0 0 Yes Acute left-sided low back pain without sciatica 750mg Take 1 tablet by mouth 2 times daily as needed for Pain. [facility] naproxen (NAPROSYN) 500 mg tablet 2018-07-06 00:00:00 Yes Acute left-sided low back pain without sciatica 500mg Take 1 ta blet by mouth 2 times daily (with meals). [facility] piroxicam (FELDENE) 10 mg capsule 2017-11-02 00:00:00 Yes Injury of left wrist, subsequent encounter 10mg QD Take 1 capsule by mouth daily. [facility] dicyclomine (BENTYL) 10 mg capsule 2017-11-02 00:00:00 Yes Irritable bowel syndrome with constipation 10mg Take 1 capsul e by mouth 4 times daily (before meals and nightly). [facility] piroxicam (FELDENE) 10 mg capsule 2017-11-02 00:00:00 Yes 10mg Take 10 mg by mouth. [facility] tramadol hydrochloride 50 MG Oral Tablet 2017-08-24 04:41:00 No 50 mg = 1 tab, PO, Q4H, not to exceed 400 mg/day, X 3 day, # 18 tab, 0 Refill(s) [facility] ibuprofen 800 mg oral tablet 2017-08-24 04:39:00 No 800 mg = 1 tab, PO, Q8H, not to exceed 3200 mg/day with food or milk, X 7 day, # 21 tab, 0 Refill(s) [facility] Sodium Chloride 0.9% (Bolus) IV 2017-08-24 01:31:00 No 1,000 mL, Infuse Over: 1 hr, Route: IV, ONCE, Priority: STAT, Dosing Weight 115.028 kg, Start date: 08/23/17 20:31:00 CDT, Stop date: 08/23/17 20:31:00 CDT [facility] Ketorolac 2017-08-24 01:31:00 No 30 mg, Route: IVP, Drug form: INJ, ONCE, Dosing Weight 115.028, kg, Priority: STAT, Start date: 08/23/17 20:31:00 CDT, Stop date: 08/23/17 20:31:00 CDT [facility] Acetaminophen 325 MG / Hydrocodone Bitartrate 10 MG Or al Tablet [[place] 10/325] 2015-05-12 18:27:00 No Note s: Do not exceed 4gm/day of acetaminophen. (Same as: [place] 325/10) [facility] Naloxone 2015-05-12 18:27:00 No Notes: Same as Narcashlee [facility] Ondansetron 2015-05-12 18:27:00 No Notes: (Same as: Joon) MEDICATION WASTE Product Size: 4 mg Product Wasted: ___ mg [facility] Oxycodone 2015-05-12 18:27:00 No Notes: (Sa me as: Roxicodone) [facility] Hydralazine 2015-05-12 18:27:00 No Notes: (Same as: Apresoline) Push over 5 minutes [facility] Metoprolol 2015-05-12 18:27:00 No Notes: (Same as: Lopressor) Push over 2 minutes [facility] Flumazenil 2015-05-12 18:27:00 No Notes: (S shahid as: Romazicon) [facility] Meperidine 2015-05-12 18:27:00 No Notes: (S shahid As: Demerol) [facility] Hydromorphone 2015-05-12 18:27:00 No 0.5 mg, 0.5 mL, Route: IVP, Drug form: INJ, Q5Min, Dosing Weight 114.545, kg, PRN Pain Score 7-10, Start date: 05/12/15 13:27:00, Duration: 4 doses or times, Stop date: Limited # of times [facility] Fentanyl 2015-05-12 18:27:00 No Notes: (Same as: Sublimaze) Preservative free. [facility] glycopyrrolate (CHARS) 2015-05-12 18:23:00 No Route: IV, Drug form: INJ, ONCE, Stop date: 05/12/15 13:23:00 [facility] neostigmine (CHARS) 2015-05-12 18:23:00 No Route: IV, Drug form: INJ, ONCE, Stop date: 05/12/15 13:23:00 Anushka Montero acetaminophen (ANES) 2015-05-12 18:07:00 No Route: IV, Drug form: INJ, ONCE, Stop date: 05/12/15 13:07:00 [facility] tramadol hydrochloride 50 MG Oral Tablet 2015-05-12 18:05:00 Yes 50 mg = 1 tab, PO, Q6H, PRN Pain, X 10 day, # 40 tab, 0 Refill(s) [facility] Docusate Sodium 100 MG Oral Capsule [Colace] 2015-05-12 18:05:00 Yes 100 mg = 1 cap, PO, BID, PRN Constipatio n, # 20 cap, 0 Refill(s), Pharmacy: [facility] [id number] [place] [address] Rabia myers rocuronium ([facility]) 2015-05-12 17:47:00 No Route: IV, Drug form: INJ, ONCE, Stop date: 05/12/15 12:47:00 [facility] lidocaine ([facility]) 2015-05-12 17:42:00 No Route: IV, Drug form: INJ, ONCE, Stop date: 05/12/15 12:42:00 [facility] ceFAZolin ([facility]) 2015-05-12 17:37:00 No Route: IV, Drug form: INJ, ONCE, Stop date: 05/12/15 12:37:00 [facility] ondansetron ([facility]) 2015-05-12 17:37:00 No Route: IV, Drug form: INJ, ONCE, Stop date: 05/12/15 12:37:00 Lester ria [facility] midazolam ([facility]) 2015-05-12 17:37:00 No Route: IV, Drug form: SOLN, ONCE, Stop date: 05/12/15 12:37:00 [facility] fentaNYL ([facility]) 2015-05-12 17:37:00 No Route: IV, Drug form: INJ, ONCE, Stop date: 05/12/15 12:37:00 [facility] propofol ([facility]) 2015-05-12 17:32:00 No Route: IV, Drug form: INJ, ONCE, Stop date: 05/12/15 12:32:00 [facility] Lactated Ringers Injection IV ([facility]) ([facility]) 2015-05-12 16:52:00 No Route: IV, Total Volume: 1,000, Start date: 05/12/15 11:52:00, Stop date: 05/12/15 12:52:00 [facility] Calcium Chloride 0.0014 MEQ/ML / Potassi um Chloride 0.004 MEQ/ML / Sodium Chloride 0.103 MEQ/ML / Sodium Lactate 0.028 MEQ/ML Injectable Solution 2015-05-12 16:13:00 No 1,000 mL, Rate: 25 ml/hr, Infuse over: 40 hr, Route: IV, Dosing Weight 114.545 kg, Total Volume: 1,000, Start date: 05/12/15 11:13:00, Duration: 30 day, Stop date: 06/11/15 11:12:00 [facility] multivitamin 2015-05-08 19:51:00 Yes Daily, 0 Refill(s) [facility] Dicyclomine Hydrochloride 20 MG Oral Tablet [Bentyl] 2 04:29:00 Yes 20 mg = 1 tab, PO, QID, # 40 tab, 0 Refill(s), Pharmacy: [facility] [id number] [facility] Bentyl 2015-05-06 04:28:00 No 20 mg, Route: IM, ONCE, Dosing Weight 113.636, kg, Start date: 05/05/15 23:28:00, Stop date: 05/05/15 23:28:00 [facility] Bentyl 2015-05-05 23:31:00 No Notes: (Same as: Bentyl) [facility] Protonix 2015-03-23 13:30:00 No Notes: Tablet should not be chewed or crushed. (Same as: Protonix) [facility] Nexium 2015-03-23 13:30:00 No 40 mg, Route: PO, BID-Before Meals, Dosing Weight 113.636, kg, Start date: 03/23/15 7:30:00, Duration: 30 day, Stop date: 04/21/15 16:30:00 [facility] Oxycodone 2015-03-23 06:16:00 No 5 mg, Route: PO, Drug form: TAB, Q4H, Dosing Weight 113.636, kg, PRN Pain Score 4-6, Start date: 03/23/15 0:16:00, Duration: 30 day, Stop date: 04/22/15 0:15:00 [facility] Metoprolol 2015-03-23 06:16:00 No 1 mg, Route: IVP, Q5Min, Dosing Weight 113.636, kg, PRN Other -See Comment, Start date: 03/23/15 0:16:00, Duration: 5 doses or times, Stop date: Limited # of times [facility] Dexamethasone 2015-03-23 06:16:00 No 4 mg, Route: IVP, ONCE, Dosing Weight 113.636, kg, PRN Nausea & Vomiting, Start date: 03/23/15 0:16:00 [facility] Promethazine 2015-03-23 06:16:00 No 6.25 mg, Route: IVPB, ONCE, Dosing Weight 113.636, kg, PRN Nausea & Vomiting, Start date: 03/23/15 0:16:00 [facility] Diphenhydramine 2015-03-23 06:16:00 No 12.5 mg, Route: IVP, Drug form: INJ, Q6H, Dosing Weight 113.636, kg, PRN Itching, Start date: 03/23/15 0:16:00, Duration: 30 day, Stop date: 04/22/15 0:15:00 [facility] Ondansetron 2015-03-23 06:16:00 No 4 mg, Route: IVP, ONCE, Dosing Weight 113.636, kg, PRN Nausea & Vomiting, Start date: 03/23/15 0:16:00 [facility] Glycopyrrolate 2015-03-23 06:16:00 No 0.2 mg, Route: IVP, Q5Min, Dosing Weight 113.636, kg, PRN Bradycardia, Start date: 03/23/15 0:16:00, Duration: 3 doses or times, Stop date: Limited # of times [facility] Hydralazine 2015-03-23 06:16:00 No 10 mg, Route: IVP, Q20Min, Dosing Weight 113.636, kg, PRN Elevated BP, Start date: 03/23/15 0:16:00, Duration: 2 doses or times, Stop date: Limited # of times [facility] Ketorolac 2015-03-23 06:16:00 No 30 mg, Route: IVP, ONCE, Dosing Weight 113.636, kg, Start date: 03/23/15 0:16:00, Duration: 1 doses or times, Stop date: 03/23/15 0:16:00 [facility] Morphine 2015-03-23 06:16:00 No 2 mg, Route: IVP, Q5Min, Dosing Weight 113.636, kg, PRN Pain Score 4-6, Start date: 03/23/15 0:16:00, Duration: 5 doses or times, Stop date: Limited # of times [facility] Fentanyl 2015-03-23 06:16:00 No 50 microgram, Route: IVP, Q5Min, Dosing Weight 113.636, kg, PRN Pain Score 7-10, Start date: 03/23/15 0:16:00, Duration: 2 doses or times, Stop date: Limited # of times [facility] Hydromorphone 2015-03-23 06:16:00 No 0.5 mg, Route: IVP, Q5Min, Dosing Weight 113.636, kg, PRN Pain Score 7-10, Start date: 03/23/15 0:16:00, Duration: 4 doses or times, Stop date: Limited # of times [facility] Naloxone 2015-03-23 06:16:00 No 0.04 mg, Route: IVP, Q2MIN, Dosing Weight 113.636, kg, PRN Narcotic Reversal, Start date: 03/23/15 0:16:00, Duration: 8 doses or times, Stop date: Limited # of times [facility] Flumazenil 2015-03-23 06:16:00 No 0.2 mg, Route: IVP, PRN, Dosing Weight 113.636, kg, PRN Benzodiazepine Reversal, Initial dose, Start date: 03/23/15 0:16:00, Duration: 30 day, Stop date: 04/22/15 1:15:00 [facility] Meperidine 2015-03-23 06:16:00 No 12.5 mg, Route: IVP, Q30Min, Dosing Weight 113.636, kg, PRN Other -See Comment, For shivering, Start date: 03/23/15 0:16:00, Duration: 2 doses or times, Stop date: Limited # of times [facility] ceFAZolin (SCIP) 2015-03-23 06:00:00 No 1 gm, 100 mL, Route: IVPB, Drug form: INJ, Q8H, Dosing Weight 113.636, kg, Start date: 03/23/15 0:00:00, Duration: 1 doses or times, Stop date: 03/23/15 0:00:00 [facility] Promethazine Hydrochloride 25 MG Oral Tablet [Phenergan] 2015-03-23 05:48:00 Yes 25 mg = 1 tab, PO, Q 6H, PRN Nausea, X 7 day, # 28 tab, 1 Refill(s) [facility] Acetaminophen 300 MG / Codeine Phosphate 30 MG Oral Tablet [Tylenol with Codeine #3] 2015-03-23 05:48:00 Yes 1 - 2 tab, PO, Q4H, PRN Pain, X 2 week, # 30 tab, 2 Refill(s) [facility] Montero acetaminophen-codeine #3 2015-03-23 05:46:00 No Notes: Do not exceed 4gm/day of acetaminophen. (Same as: Tylenol with Codeine # 3) [facility] Montero rocuronium (CHARS) 2015-03-23 05:18:00 No Route: IV, Drug form: INJ, ONCE, Stop date: 03/22/15 23:18:00 [facility] ketOROLAC ([facility]) 2015-03-23 05:18:00 No IV, ONCE [facility] ceFAZolin ([facility]) 2015-03-23 05:18:00 No Route: IV, Drug form: INJ, ONCE, Stop date: 03/22/15 23:18:00 [facility] ondansetron ([facility]) 2015-03-23 05:18:00 No Route: IV, Drug form: INJ, ONCE, Stop date: 03/22/15 23:18:00 [facility] midazolam (ANES) 2015-03-23 05:13:00 No Route: IV, Drug form: SOLN, ONCE, Stop date: 03/22/15 23:13:00 [facility] fentaNYL (ANES) 2015-03-23 05:13:00 No Route: IV, Drug form: INJ, ONCE, Stop date: 03/22/15 23:13:00 [facility] propofol (ANES) 2015-03-23 05:13:00 No Route: IV, Drug form: INJ, ONCE, Stop date: 03/22/15 23:13:00 [facility] Lactated Ringers Injection IV (ANES) ([facility]) 2015-03-23 04:17:00 No Route: IV, Total Volume: 1,000, Start date: 03/22/15 22:17:00, Stop date: 03/22/15 23:17:00 [facility] Cefoxitin 2015-03-23 04:00:00 No Notes: (Same As: Mefoxin) MEDICATION WASTE Product Size: 2000 mg Product Wasted: ___ mg [facility] normal saline 0.9% IV 1,000 mL 2015-03-22 22:58:00 No 1,000 mL, Rate: 100 ml/hr, Infuse over: 10 hr, Route: IV, Dosing Weight 113.636 kg, Total Volume: 1,000, Start date: 03/22/15 16:58:00, Duration: 30 day, Stop date: 04/21/15 16:57:00 [facility] Phenergan 2015-03-22 22:58:00 No Notes: Do not give IV push. (Same as: Phenergan) [facility] Morphine 2015-03-22 22:56:00 No Not es: (Same as:MORPhine Sulfate) [facility] Acetaminophen 325 MG / Hydrocodone Bitartrate 10 MG Or al Tablet [[place] 10/325] 2015-03-22 19:45:00 No 1 ta b, PO, Q6H, PRN Pain Score 6-10, # 30 tab, 0 Refill(s) [facility] Mefoxin 2015-03-22 18:39:00 No 2 gm, Route: IVPB, ONCE, Dosing Weight 113.636, kg, Priority: STAT, Start date: 03/22/15 12:39:00, Stop date: 03/22/15 12:39:00 [facility] Zofran 2015-03-22 17:21:00 No 4 mg, Route: IVP, Drug form: INJ, ONCE, Dosing Weight 113.636, kg, Priority: STAT, Start date: 03/22/15 11:21:00, Stop date: 03/22/15 11:21:[address] [facility] Morphine 2015-03-22 17:21:00 No 4 mg, Route: IVP, Drug form: INJ, ONCE, Dosing Weight 113.636, kg, Priority: STAT, Start date: 03/22/15 11:21:00, Stop date: 02/13/16 11:21:[address] [facility] Esomeprazole 40 MG Enteric Coated Capsule [Nexium] 2015-03 14:29:00 Yes 40 mg = 1 cap, PO, Daily, # 30 cap, 0 Re fill(s) [facility] Ondansetron 4 MG Disintegrating Tablet [Zofran] 2015-01-07 20:57 :00 Yes 4 mg = 1 tab, PO, BID, PRN N ausea and Vomiting, Dissolve tab under tongue, X 5 day, # 30 tab, 0 Refill(s) [facility] GI cocktail 2015-01-07 19:48:00 No 30 mL, Route: PO, Dosing Weight 159.091, kg, ONCE, STAT, Start date: 01/07/15 13:48:00, Stop date: 01/07/15 13:48:00 [facility] Morphine 2015-01-07 17:32:00 No 4 mg, Route: IVP, ONCE, Dosing Weight 159.091, kg, Priority: STAT, Start date: 01/07/15 11:32:00, Stop date: 01/07/15 11:32:00 [facility] Sodium Chloride 0.154 MEQ/ML Injectable Solution 2015-01-07 17:3 2:00 No 1,000 mL, 1,000 ml/hr, Infus e Over: 1 hr, Route: IV, ONCE, Priority: STAT, Dosing Weight 159.091 kg, Start date: 01/07/15 11:32:00, Duration: 1 doses or times, Stop date: 01/07/15 11:32:00 [facility] 2015-01-07 17:32:00 No 4 mg, Route: IVP, Drug form: INJ, ONCE, Dosing Weight 159.091, kg, Priority: STAT, Start date: 01/07/15 11:32:00, Stop date: 01/07/15 11:32:00 [facility] Tylenol 2012-04-08 04:12:00 No Ivone A[facility] [place] 1,000 mg, Route: PO, ONCE, Dosing Weight 113.636, kg, Start date: 04/07/12 22:12:00, Stop date: 04/07/12 22:12:00 [facility] potassium chloride 20 mEq/15 mL oral liquid 2012-04-08 02: 11:00 No Ivone [facility] [place] 40 mEq, 15 mL, R oute: PO, Drug form: LIQ, ONCE, Dosing Weight 113.636, kg, Priority: STAT, Start date: 04/07/12 20:11:00, Stop date: 04/07/12 20:11:00 [facility] Sodium Chloride 0.9% (Bolus) IV 1,000 mL 2012-04-08 02:11: 00 No Ivone Aprielle Prer[place] 1,000 mL, Rate: 1,000 ml/hr, Infuse over: 1 hr, Route: IV, kg, Total Volume: 1,000, Priority: STAT, Start date: 04/07/12 20:11:00, Duration: 1 doses or times, Stop date: 04/07/12 21:10:00, Bolus DoseBolus Dose [facility] Immunizations Ordered Immunization Name Filled Immunization Name Date Status Comments Source Influenza Vaccine 2012-11-11 00:00:00 Completed [facility] Vital Signs Vital Name Observation Time Observation Value Comments Source Temperature Oral (F) 2017-08-24 04:13:00 98.8 F [facility] Respitory Rate 2017-08-24 04:13:00 [facility] Heart Rate 2017-08-24 04:13:00 [facility] Systolic (mm Hg) 2017-08-24 04:13:00 Lester rial Odin Diastolic (mm Hg) 2017-08-24 04:13:00 [facility] Temperature Oral (F) 2017-08-23 23:48:00 100 F [facility] Systolic (mm Hg) 2017-08-23 23:48:00 Lester rial [facility] Diastolic (mm Hg) 2017-08-23 23:48:00 [facility] Heart Rate 2017-08-23 23:48:00 [facility] Respitory Rate 2017-08-23 23:48:00 [facility] Systolic (mm Hg) 2016-02-26 16:49:00 Lester rial [facility] Diastolic (mm Hg) 2016-02-26 16:49:00 [facility] Respitory Rate 2016-02-26 16:49:00 [facility] Respitory Rate 2015-05-12 20:00:00 [facility] Systolic (mm Hg) 2015-05-12 20:00:00 Lester rial Odin Diastolic (mm Hg) 2015-05-12 20:00:00 [facility] Systolic (mm Hg) 2015-05-12 19:15:00 Lester rial [facility] Diastolic (mm Hg) 2015-05-12 19:15:00 [facility] Respitory Rate 2015-05-12 19:15:00 [facility] Respitory Rate 2015-05-12 19:00:00 [facility] Systolic (mm Hg) 2015-05-12 19:00:00 Lester rial Odin Diastolic (mm Hg) 2015-05-12 19:00:00 [facility] Heart Rate 2015-05-08 19:57:00 [facility] Temperature Oral (F) 2015-05-08 19:57:00 98.4 F [facility] Height 2015-05-08 19:29:00 167.64 cm [facility] Weight 2015-05-08 19:29:00 [facility] BMI Calculated 2015-05-08 19:29:00 [facility] Systolic (mm Hg) 2015-05-06 05:50:00 Lester rial [facility] Diastolic (mm Hg) 2015-05-06 05:50:00 [facility] Respitory Rate 2015-05-06 05:50:00 [facility] Temperature Oral (F) 2015-05-06 05:50:00 98.4 F [facility] Heart Rate 2015-05-06 05:50:00 [facility] Systolic (mm Hg) 2015-05-06 03:45:00 Lester rial [facility] Diastolic (mm Hg) 2015-05-06 03:45:00 [facility] Temperature Oral (F) 2015-05-06 03:45:00 98.6 F [facility] Heart Rate 2015-05-06 03:45:00 [facility] Respitory Rate 2015-05-06 03:45:00 [facility] Height 2015-05-05 23:32:00 170.18 cm [facility] BMI Calculated 2015-05-05 23:32:00 [facility] Weight 2015-05-05 23:32:00 [facility] Systolic (mm Hg) 2015-05-05 23:32:00 [facility] Diastolic (mm Hg) 2015-05-05 23:32:00 [facility] Heart Rate 2015-05-05 23:32:00 [facility] Respitory Rate 2015-05-05 23:32:00 [facility] Temperature Oral (F) 2015-05-05 23:32:00 98.8 F [facility] Heart Rate 2015-03-23 18:06:00 [facility] Temperature Oral (F) 2015-03-23 18:06:00 98.5 F [facility] Systolic (mm Hg) 2015-03-23 18:06:00 [facility] Diastolic (mm Hg) 2015-03-23 18:06:00 [facility] Respitory Rate 2015-03-23 18:06:00 [facility] Temperature Oral (F) 2015-03-23 13:41:00 98.5 F [facility] Heart Rate 2015-03-23 13:41:00 [facility] Respitory Rate 2015-03-23 13:41:00 [facility] Systolic (mm Hg) 2015-03-23 13:41:00 [facility] Diastolic (mm Hg) 2015-03-23 13:41:00 [facility] Respitory Rate 2015-03-23 09:28:00 [facility] Heart Rate 2015-03-23 08:11:00 [facility] Systolic (mm Hg) 2015-03-23 08:11:00 [facility] Diastolic (mm Hg) 2015-03-23 08:11:00 [facility] Temperature Oral (F) 2015-03-23 02:52:00 99.2 F [facility] Weight 2015-03-22 23:00:00 [facility] BMI Calculated 2015-03-22 23:00:00 [facility] Height 2015-03-22 23:00:00 170.18 cm [facility] Weight 2015-03-22 16:52:00 [facility] Temperature Oral (F) 2015-03-19 17:35:00 98.2 F [facility] Heart Rate 2015-03-19 17:35:00 [facility] Systolic (mm Hg) 2015-03-19 17:35:00 [facility] Diastolic (mm Hg) 2015-03-19 17:35:00 [facility] Respitory Rate 2015-03-19 17:35:00 [facility] Systolic (mm Hg) 2015-03-19 14:21:00 [facility] Heart Rate 2015-03-19 14:21:00 [facility] Diastolic (mm Hg) 2015-03-19 14:21:00 [facility] Respitory Rate 2015-03-19 14:21:00 [facility] Height 2015-03-19 13:57:00 170.18 cm [facility] Weight 2015-03-19 13:57:00 [facility] BMI Calculated 2015-03-19 13:57:00 [facility] Systolic (mm Hg) 2015-03-19 13:57:00 [facility] Diastolic (mm Hg) 2015-03-19 13:57:00 [facility] Heart Rate 2015-03-19 13:57:00 [facility] Respitory Rate 2015-03-19 13:57:00 [facility] Temperature Oral (F) 2015-03-19 13:57:00 98.1 F [facility] Respitory Rate 2015-01-07 20:56:00 [facility] Heart Rate 2015-01-07 20:56:00 [facility] Systolic (mm Hg) 2015-01-07 20:56:00 [facility] Diastolic (mm Hg) 2015-01-07 20:56:00 [facility] Temperature Oral (F) 2015-01-07 20:56:00 98.5 F [facility] BMI Calculated 2015-01-07 17:12:00 [facility] Weight 2015-01-07 17:12:00 [facility] Heart Rate 2015-01-07 17:12:00 [facility] Respitory Rate 2015-01-07 17:12:00 [facility] Temperature Oral (F) 2015-01-07 17:12:00 98.5 F [facility] Height 2015-01-07 17:12:00 165.1 cm [facility] Systolic (mm Hg) 2015-01-07 17:12:00 [facility] Diastolic (mm Hg) 2015-01-07 17:12:00 [facility] Height 2012-04-08 00:54:00 167.64 cm [facility] Weight 2012-04-08 00:54:00 Kenyatta Montero Procedures Procedure Date / Time Performed Performing Clinician Josette cutler Laparoscopic cholecystectomy 2015-05-12 05:00:00 Kenyatta Montero Appendectomy 2015-03-22 06:00:00 Kenyatta saul D&C - Dilatation and curettage 2015-03-22 06:00:00 Kenyatta Montero CS - section Kenyatta maldonadolucia Plan of Care Planned Activity Planned Date Details Comments Source Future Scheduled Test 2018-06-02 00:00:00 Screening for cortez gnant neoplasm of cervix (procedure) [code = 368150645] [facility] Encounters Start Date/Time End Date/Time Encounter Type [facility] Care Department Encounter ID Source 2018-09-02 00:00:00 2018-09-02 00:00:00 Outpatient [facility] [id number] [facility] 2018-07-06 14:47:41 2018-07-06 14:47:41 Outpatient [facility] [id number] [facility] 2018-06-19 17:03:19 2018-06-19 17:03:19 Outpatient [facility] [id number] [facility] 2018-06-03 15:06:32 2018-06-03 15:06:32 Outpatient [facility] [id number] [facility] 2018-05-08 13:43:58 2018-05-08 13:43:58 Outpatient [facility] [id number] [facility] 2018-04-01 09:58:55 2018-04-01 09:58:55 Outpatient [facility] [id number] [facility] 2018-03-10 16:44:06 2018-03-10 16:44:06 Outpatient [facility] [id number] [facility] 2018-02-01 00:00:00 2018-02-01 00:00:00 Outpatient [facility] [id number] [facility] 2018-01-03 00:00:00 2018-01-03 00:00:00 Outpatient [facility] [id number] [facility] 2018-01-02 00:00:00 2018-01-02 00:00:00 Outpatient [facility] [id number] [facility] 2017-12-19 09:09:54 2017-12-19 09:09:54 Outpatient [facility] [id number] [facility] 2017-11-02 14:48:04 2017-11-02 14:48:04 Outpatient [facility] [id number] [facility] 2017-11-02 13:08:12 2017-11-02 13:08:12 Outpatient [facility] [id number] [facility] 2017-09-28 16:03:24 2017-09-28 16:03:24 Outpatient [facility] [id number] [facility] 2017-09-19 12:59:50 2017-09-19 12:59:50 Outpatient [facility] [id number] [facility] 2017-08-23 18:38:00 2017-08-24 00:02:00 Outpatient Ivette Johnson [facility] [id number] 2016-07-09 00:00:00 2016-07-09 00:00:00 Outpatient [facility] [id number] [facility] 2016-07-07 15:15:31 2016-07-07 15:15:31 Outpatient [facility] [id number] [facility] 2016-02-26 09:41:00 2016-02-26 11:43:00 Outpatient Skylari ashlee, Non Associated [facility] [id number] 2015-05-12 10:00:00 2015-05-12 15:15:00 Outpatient Robb Vasquez [facility] [id number] 2015-05-05 18:28:00 2015-05-06 01:22:00 Outpatient Reza Lagos [facility] [id number] 2015-03-22 10:50:00 2015-03-23 13:33:00 Outpatient Jitendra Crowley [facility] [id number] 2015-03-19 07:56:00 2015-03-19 11:40:00 Outpatient Leonardo Johnson [facility] [id number] 2015-01-07 11:06:00 2015-01-07 15:05:00 Outpatient Watson Hammond [facility] [id number] 2014-09-13 00:00:00 2014-09-13 00:00:00 Outpatient [facility] [id number] [facility] Results Test Description Test Time Test Comments Results Result Comments Source C. TRACHOMATIS DNA BY PCR 2019-01-03 19:08:00 Test Item C. TRACHOMATIS DNA BY PCR (test code = CHLAMTDNA) Negative Nega tive N. GONORRHOEAE DNA BY [id number] 19:08:00* Test Item Value Reference Range Interpretation Comments N. GONORRHOEAE DNA BY PCR (test code = NGONORDNA) Nega tive C. TRACHOMATIS DNA BY [id number] 19:08:00* Test Item Value Reference Range Interpretation Comments C. TRACHOMATIS DNA BY PCR (test code = CHLAMTDNA) Negative Nega tive N. GONORRHOEAE DNA BY [id number] 19:08:00* Test Item Value Reference Range Interpretation Comments N. GONORRHOEAE DNA BY PCR (test code = NGONORDNA) Negative Nega tive [facility]formed At[facility] [place], [place] [id number] mckenzie Cox MD Ph:[phone] performed at: [facility] [address] [place] [address] - US TRANSVAGINAL NON [id number] 11:23:00 Name: EDGARDO GOFF [facility] : 1985 Age/S: 33 / F [address] [facility] Unit #: [id number] Loc: [place] [address] Phys: Domenica Tomas NP Acct: [id number] Dis Date: Status: REG ER PHONE #: [phone] Exam Date: 12/30/2018 1039 FAX #: [phone] Reason: pelvic pain, hx ovarian cysts EXAMS: CPT CODE: [id number] [place] [id number] EXAM: Pelvic and transvaginal ultrasound and duplex sonography; INFORMATION: Pelvic pain, history of ovarian cyst; TECHNIQUE AND FINDINGS: Transabdominal and transvaginal grayscale imaging was combined with color Doppler sonography and spectral analysis. The uterus measures 10.2 x 5 x 5.6 cm. Unremarkable endometrial stripe, measuring 7 mm in thickness. No fluid collection within the endometrial canal. Both ovaries are of normal size and shape and with normal flow pattern on Doppler exam. The right ovary measures 3.1 x 1.9 x 2.9 cm. The left ovary measures 3.5 x 2.7 x 3.6 cm. No free fluid within the cul-de-sac. IMPRESSION: U nremarkable pelvic ultrasound. Location code: [facility] at 1123 Reported and signed by: George Khanna M.D. CC: Vineet Hollingsworth III, MD; Lyric Brewster MD; Domenica Tomas NP Technologist: YESSI LARSEN Trnscb Date/Time: 12/30/2018 (1122) [email or web address] Orig Print D/T: S: 12/30/2018 (1126) Probe: [id number] PAGE 1 Signed Report - US PELVIS [id number] 11:23:00 Name: EDGARDO GOFF [facility] : 1985 Age/S: 33 / F [address] [facility] Unit #: [id number] Loc: [place] [address] Phys: Domenica Tomas NP Acct: [id number] Dis Date: Status: REG ER PHONE #: [phone] Exam Date: 12/30/2018 1039 FAX #: [phone] Reason: pelvic pain, hx ovarian cysts EXAMS: CPT CODE: [id number] US PELVIS COMPLETE [id number] EXAM: Pelvic and transvaginal ultrasound and duplex sonography; INFORMATION: Pelvic pain, history of ovarian cyst; TECHNIQUE AND FINDINGS: Transabdominal and transvaginal grayscale imaging was combined with color Doppler sonography and spectral analysis. The uterus measures 10.2 x 5 x 5.6 cm. Unremarkable endometrial stripe, measuring 7 mm in thickness. No fluid collection within the endometrial canal. Both ovaries are of normal size and shape and with normal flow pattern on Doppler exam. The right ovary measures 3.1 x 1.9 x 2.9 cm. The left ovary measures 3.5 x 2.7 x 3.6 cm. No free fluid within the cul-de-sac. IMPRESSION: Unremarkable pelvic ultrasound. Location code: [facility] at 1123 Reported and signed by: George Khanna M.D. CC: Vineet Hollingsworth III, MD; Lyric Brewster MD; Domenica Tomas NP Technologist: YESSI LARSEN US Trnscb Date/Time: 12/30/2018 (1123) Jay Orig Print D/T: S: 12/30/2018 (1126) Probe: PAGE 1 Signed Report - DUP AB/PEL/SC [id number] 11:23:00 Name: EDGARDO OGFF [facility] : 1985 Age/S: 33 / F [facility] Unit #: [id number] Loc: [place] [address] Phys: Domenica Tomas NP Acct: [id number] Dis Date: Status: REG ER PHONE #: [phone] Exam Date: 12/30/2018 1039 FAX #: [phone] Reason: pelvic pain, hx ovarian cysts EXAMS: CPT CODE: [id number] DUP AB/PEL/SC COMP [id number] EXAM: Pelvic and transvaginal ultrasound and duplex sonography; INFORMATION: Pelvic pain, history of ovarian cyst; TECHNIQUE AND FINDINGS: Transabdominal and transvaginal grayscale imaging was combined with color Doppler sonography and spectral analysis. The uterus measures 10.2 x 5 x 5.6 cm. Unremarkable endometrial stripe, measuring 7 mm in thickness. No fluid collection within the endometrial canal. Both ovaries are of normal size and shape and with normal flow pattern on Doppler exam. The right ovary measures 3.1 x 1.9 x 2.9 cm. The left ovary measures 3.5 x 2.7 x 3.6 cm. No free fluid within the cul-de-sac. IMPRESSION: Unremarkable pelvic ultrasound. Location code: [facility] at 1123 Reported and signed by: George Khanna M.D. CC: Vineet Hollingsworth III, MD; Lyric Duggna MD; Domenica Tomas NP Technologist: YESSI LARSEN US Trnscb Date/Time: 12/30/2018 (1123) Jay Orig Print D/T: S: 12/30/2018 (1126) Probe: PAGE 1 Signed Report URINALYSIS [id number] 08:41:00* Test Item Value Reference Range Interpretation Comments UA COLOR (test code = COLU) COLORLESS YELLOW A UA APPEARANCE (test code = APPU) CLEAR CLEAR UA GLUCOSE DIPSTICK (test code = DGLUU) NEGATIVE mg/dL NEGATIVE UA BILIRUBIN DIPSTICK (test code = BILU) NEGATIVE mg/dL NEGATIVE UA KETONE DIPSTICK (test code = KETU) NEGATIVE mg/dL NEGATIVE UA SPECIFIC GRAVITY (test code = SGU) 1.007 1.001-1.035 UA BLOOD DIPSTICK (test code = GAYLE) 0.03 mg/dL (Trace) mg/dL NEGATI VE A UA PH DIPSTICK (test code = LIT) 5.5 5.0-8.0 UA PROTEIN DIPSTICK (test code = PROU) NEGATIVE mg/dL NEGATIVE UA UROBILINIOGEN DIPSTICK (test code = URO) Normal mg/dL NEGATIVE UA NITRITE DIPSTICK (test code = GREGORIA) NEGATIVE NEGATIVE UA LEUKOCYTE ESTERASE W REFLEX (test code = LEUUR) NEGATIVE Missael/uL NEGATIVE UA WBC (test code = WBCU) 0-5 per HPF 0-5 UA RBC (test code = RBCU) 0-2 #/HPF 0-5 UA EPITHELIAL CELLS (test code = EPIU) FEW per HPF FEW UA BACTERIA (test code = BACU) FEW #/HPF NONE A UA MUCUS (test code = MUCU) FEW #/LPF FEW Urine Source? Clean CatchBASIC METABOLIC [id number] 08:37:00* Test Item Value Reference Range Interpretation Comments SODIUM (test code = NA) 140 mmol/L 136-145 N POTASSIUM (test code = K) 3.8 mmol/L 3.5-5.1 N CHLORIDE (test code = CL) 107.0 mmol/L 98-107 N CARBON DIOXIDE (test code = CO2) 27.0 mmol/L 21-32 N ANION GAP (test code = GAP) 9.8 10-20 L GLUCOSE (test code = GLU) 78 mg/dL 74-106 N BLOOD UREA NITROGEN (test code = BUN) 9 mg/dL 7-18 N GLOMERULAR FILTRATION RATE (test code = GFR) > 60 mL/min >=60 Estimated GFR by using Modified MDRD formula.Chronic kidney disease is defined as either kidney damageor GFR <60 mL/min/1.73 m2 for >3 months. CREATININE (test code = CREAT) 0.60 mg/dL 0.55-1.02 N Note change in reference range due to change in reagent. BUN/CREATININE RATIO (test code = BUN/CREA) 15.1 10-20 N CALCIUM (test code = CA) 8.4 mg/dL 8.5-10.1 L HEPATIC FUNCTION [id number] 08:37:00* Test Item Value Reference Range Interpretation Comments TOTAL PROTEIN (test code = PROT) 7.4 gram/dL 6.4-8.2 N ALBUMIN (test code = ALB) 3.5 g/dL 3.4-5.0 N GLOBULIN (test code = GLOB) 3.9 gram/dL 2.7-4.2 N ALBUMIN/GLOBULIN RATIO (test code = A/G) 0.9 0.75-1.50 N BILIRUBIN TOTAL (test code = BILT) 0.40 mg/dL 0.0-1.0 N BILIRUBIN DIRECT (test code = BILD) 0.11 mg/dL 0.0-0.20 N SGOT/AST (test code = AST) 12 IUnit/L 15-37 L SGPT/ALT (test code = ALT) 25 IUnit/L 12-78 N ALKALINE PHOSPHATASE TOTAL (test code = ALKP) 73 IUnit/L 45-117 N Note change in reference range due to change in reagent. [id number] 08:37:00* Test Item Value Reference Range Interpretation Comments LIPASE (test code = LIP) 68 U/L 73.0-393.0 L HCG SERUM [id number] 08:37:00* Test Item Value Reference Range Interpretation Comments HCG SERUM BETA (test code = HCG) < 1.0 mIU/mL 0-3 N INTERPRETATION:B-HCG LEVELS <5 SHOULD BE CONSIDERED "NEGATIVE." *WHEN BODERLINE RESULTS ARE ENCOUNTERED,PATIENT SAMPLESSHOULD BE REDRAWN 48 HOURS. 0-1 WEEKS AFTER CONCEPTION 5-50 MIU/ML1-2 WEEKS AFTER CONCEPTION 50-500 MIU/ML2-3 WEEKS AFTER CONCEPTION 100 -5,000 MIU/ML3-4 WEEKS AFTER CONCEPTION 500-10,000 MIU/ML4-5 WEEKS AFTER CONCEPTION 1000 -50,000 MIU/ML5-6 WEEKS AFTER CONCEPTION 10,000-100,000 MIU/ML6-8 WEEKS AFTER CONCEPTION 15,000- 200,000 MIU/ML2-3 MONTHS AFTER CONCEPTION 10,000-100,000 MIU/ML CBC W/O [id number] 08:28:00* Test Item Value Reference Range Interpretation Comments WHITE BLOOD CELL (test code = WBC) 6.0 K/mm3 4.5-12.5 N RED BLOOD CELL (test code = RBC) 4.40 mill/mm3 3.7-5.2 N HEMOGLOBIN (test code = HGB) 13.5 gram/dL 11.5-15.5 N HEMATOCRIT (test code = HCT) 41.2 % 36.0-46.0 N MEAN CELL VOLUME (test code = MCV) 93.6 fL 80-98 N MEAN CELL HGB (test code = MCH) 30.7 picogram 27.0-33.0 N MEAN CELL HGB CONCETRATION (test code = MCHC) 32.8 gram/dL 33.0-36. 0 L RED CELL DISTRIBUTION WIDTH (test code = RDW) 11.9 % 11.6-16. 2 N PLATELET COUNT (test code = PLT) 257 K/mm3 150-450 N MEAN PLATELET VOLUME (test code = MPV) 9.3 fL 6.7-11.0 N BASIC METABOLIC [id number] 08:27:00* Test Item Value Reference Range Interpretation Comments SODIUM (test code = NA) 140 mmol/L 136-145 N POTASSIUM (test code = K) 3.8 mmol/L 3.5-5.1 N CHLORIDE (test code = CL) 107.0 mmol/L 98-107 N CARBON DIOXIDE (test code = CO2) mmol/L 21-32 ANION GAP (test code = GAP) 10-20 GLUCOSE (test code = GLU) mg/dL 74-106 BLOOD UREA NITROGEN (test code = BUN) mg/dL 7-18 GLOMERULAR FILTRATION RATE (test code = GFR) mL/min >=60 CREATININE (test code = CREAT) mg/dL 0.55-1.02 BUN/CREATININE RATIO (test code = BUN/CREA) 10-20 CALCIUM (test code = CA) mg/dL 8.5-10.1 HEPATIC FUNCTION [id number] 08:27:00* Test Item Value Reference Range Interpretation Comments TOTAL PROTEIN (test code = PROT) gram/dL 6.4-8.2 ALBUMIN (test code = ALB) g/dL 3.4-5.0 GLOBULIN (test code = GLOB) gram/dL 2.7-4.2 ALBUMIN/GLOBULIN RATIO (test code = A/G) 0.75-1.50 BILIRUBIN TOTAL (test code = BILT) mg/dL 0.0-1.0 BILIRUBIN DIRECT (test code = BILD) mg/dL 0.0-0.20 SGOT/AST (test code = AST) IUnit/L 15-37 SGPT/ALT (test code = ALT) IUnit/L 12-78 ALKALINE PHOSPHATASE TOTAL (test code = ALKP) IUnit/L 45-117 [id number] 08:27:00* Test Item Value Reference Range Interpretation Comments LIPASE (test code = LIP) U/L 73.0-393.0 HCG SERUM [id number] 08:27:00* Test Item Value Reference Range Interpretation Comments HCG SERUM BETA (test code = HCG) mIU/mL 0-3 MOLECULAR [id number] 02:08:00Negative *NA*(08/23/17 9:08 PM)[facility] [id number] 02:08:00Negative *NA*(08/23/17 9:08 PM) [facility] [id number] 02:08:00[employer] *NA*(08/23/17 9:08 PM)[facility] [id number] 01:03:0091[facility]annCHE[facility] [id number] 01:03:00* Test Item Value Reference Range Interpretation Comments B/C Ratio (test code = B/C Ratio) 14 1 6-25 [facility] [id number] 01:03:008.9[facility]ann[facility] PANEL 2017-08-24 01:03:003.8[facility]annCHE[facility] [id number] 01:03:00* Test Item Value Reference Range Interpretation Comments A/G Ratio (test code = A/G Ratio) 1.1 1 0.7-1.6 [facility] [id number] 01:03:007.9[facility]ann[facility] PANEL 2017-08-24 01:03:0028[facility]annCHE[facility] [id number] 01:03:008.8[facility]ann[facility] [id number] 01:03:000.93[facility]annCHE[facility] [id number] 01:03:003.9[facility]annCHE[facility] WOIPM4811-70-01 01:03:11267Wzmgvbkp HermannCHEM [id number] 01:03:63086Plgximcu HermannCHEM [id number] 01:03:0013 [facility] [id number] 01:03:0083[facility]ann[facility] PANEL 2017-08-24 01:03:0071[facility]annCHE[facility] [id number] 01:03:006[facility]annCHEM [id number] 01:03:000.5[facility]annCHE[facility] [id number] 01:03:0019[facility]annCHE[facility] [id number] 01:03:004.1[facility]annCHE[facility] [id number] 01:03:0083[facility] NzddfdnZZLSMNKJQX2179-48-94 01:03:000.2 [facility] LwldvnxRUOGXJEOZY6236-22-48 01:03:004.6[facility]annHEMATOLOGY 2017-08-24 01:03:000.4[facility] FgkqbeaIFUCUQYDZX0324-13-95 01:03:002.6[facility] UlqkgyiLIUFCOEIWY6339-91-69 01:03:007.6[facility] LzngqvqGXHWMENBJH6527-87-77 01:03:0063.5[facility] JkvepasOWMCUIMGNS4754-88-33 01:03:001.9[facility] HFNIZYMRMH3858-31-64 01:03:000.6[facility] TrkzihkNBCRZLZFHB5788-79-64 01:03:00 25.9[facility] LcbqqlwIFDTCIXDDL1847-67-94 01:03:0014.0[facility]annHEMATOLOGY 2017-08-24 01:03:004.54[facility] LgdmocvREWWXIIIRN9884-59-81 01:03:007.2[facility] UbzbafrIWRATXEGNK4354-66-04 01:03:0034.1[facility] DfwclfoNKCBKFONWZ7797-52-67 01:03:0013.2[facility] RvkluewURUEJHKMRF3046-23-70 01:03:0090.6[facility] TRMXNXPXGT3848-96-16 01:03:0041.1[facility] CgkifigASYLDLIQRJ7093-53-07 01:03:00 7.9[facility] RriqcvtQORTHBTGKA4048-90-94 01:03:56890Aovogsfc HermannHEMATOLOGY 2017-08-24 01:03:00* Test Item Value Reference Range Interpretation Comments MCH (test code = MCH) 30.9 pg 27.0-31.0 [facility] [id number] 01:03:00Negative (08/23/17 8:03 PM) [facility] [id number] 01:03:00<1[facility] [id number] 01:03:001[facility] [id number] 01:03:00 Negative (08/23/17 8:03 PM)[facility] [id number] 01:03:00 Negative (08/23/17 8:03 PM)[facility] [id number] 01:03:00 Negative *NA*(08/23/17 8:03 PM)[facility] [id number] 01:03:00 * Test Item Value Reference Range Interpretation Comments UA Spec Grav (test code = UA Spec Grav) 1.018 1 [facility] [id number] 01:03:00Clear (08/23/17 8:03 PM) [facility] [id number] 01:03:00* Test Item Value Reference Range Interpretation Comments UA pH (test code = UA pH) 6.0 1 5.0-8.0 [facility] [id number] 01:03:00Negative (08/23/17 8:03 PM)[facility] [id number] 15:16:00Negative (05/12/15 10:16 AM)[facility]INE AND [id number] 02:38:00Negative (05/05/15 9:38 PM)[facility] URINE AND ZCQOQ0855-73-19 02:38:00<1[facility] [id number] 02:38:004[facility] WWUNL7577-01-85 02:38:00Negative (05/05/15 9:38 PM)[facility] SZDAJ1301-41-67 02:38:001.012[facility] URINE AND UMDUY7965-75-39 02:38:006.0[facility] IJXUY2446-50-36 02:38:00Clear (05/05/15 9:38 PM)[facility] [id number] 02:38:00Negative *NA*(05/05/15 9:38 PM)[facility] AEGYM6415-27-27 02:38:00Small *ABN*(05/05/15 9:38 PM)[facility]annCHEM RBBFZ4958-40-10 02:23:0078[facility] WxsrzzwPKZVDODXKENC7430-60-06 02:23:0010.1[facility] EFXRJIWDOVFJ3893-93-71 02:23:0012[facility] MfeqgfdWNOABJGBSBZS7398-83-35 02:23:00 4.1[facility] JvdzkyhZORPHHNJGAXS7447-13-88 02:23:000.9[facility] TEZPPOAYMWIR4506-69-24 02:23:000.56[facility] EokychdCFXHKWCIZVEK1804-79-59 02:23:007[facility] OwemfnbNOPOZYREVUDB5736-77-39 02:23:0086[facility] BOFGMAIOEPOY9509-45-92 02:23:50734Bdleygzr PjjnuprSBDCMIKSOHUZ3525-43-75 02:23:0010[facility] HqwjtmvOJKBBLKEYQGY7078-33-86 02:23:000.4[facility] TSJKJVYNRHDK5315-67-96 02:23:0084[facility] AtmpfzgKOWHVQFKWHNP8130-42-77 02:23:00 106[facility] HqfpzifHOIJKDMBWVVH7622-44-16 02:23:48617Gxvnemzi Odin PLXNPVRXLAOC2542-58-50 02:23:004.1[facility] LtzbreuTQCYWKFMHOEZ9572-77-81 02:23:0027[facility] AxbzfmxGEBEHORQRGZY7657-02-09 02:23:003.7[facility] LNWZDGTLDUQF6642-32-25 02:23:008.1[facility] LmkgdpuWASDXKZAGULK0558-19-15 02:23:0021[facility] DaatimvJMMUWSIBIZLB6299-50-65 02:23:007.8[facility] MLIKVCCDORLDC0924-00-84 02:23:00Negative *NA*(05/05/15 9:23 PM)[facility] MAASJMVJHC2076-33-92 02:23:002.2[facility] DhggmhxQJOVTAJJQK5481-02-96 02:23:007.8 [facility] GlhjdvuEMYOBKDMOL5886-91-74 02:23:000.4[facility]OLOG[facility] 2015-[facility]-06 02:23:000.6[facility] JqjptbaSUZNOGAGOJ2785-25-48 02:23:000.1[facility] NklwhonMINQXXPDYN5501-68-50 02:23:0020.7[facility] VflnesyRJTMMRRCCK0360-16-43 02:23:0072.6[facility] XqvzngnTFJXDRGTLR8018-64-36 02:23:000.9[facility] CYKZOMQVEU7940-73-36 02:23:005.4[facility] EbjgvbiQGETSYRUTX0244-98-62 02:23:008.1 [facility] AwadevnGRYFLDKAGG4342-69-37 02:23:20408Vpbkxhze HermannHEMATOLOGY 2015-05-06 02:23:00* Test Item Value Reference Range Interpretation Comments MCH (test code = MCH) 29.3 pg 27.0-31.0 [facility] PicbbviVXWBGLVYHZ1949-25-55 02:23:0032.9[facility]annHEMATOLOGY 2015-05-06 02:23:0013.4[facility] DfxiwxvOARMBRLTJW8985-45-82 02:23:0089.2[facility] VbitmkeDYYWKENVJB4176-63-16 02:23:0010.7[facility] BimcqakSAMETCDKWF3432-16-13 02:23:004.31[facility] OwwlwgtAJOUAQUCFR3095-42-57 02:23:0012.6[facility] NSGQGMFEAO1777-03-37 02:23:0038.4[facility] TryopphLZLMQIXIIW0832-11-94 10:15:00 32.9[facility] YrtohplUVPEIALSTG6587-61-63 10:15:0011.2[facility]annHEMATOLOGY 2015-03-23 10:15:0088.9[facility] ZnpfnibNGXRVPSANO6261-58-89 10:15:00* Test Item Value Reference Range Interpretation Comments MCH (test code = MCH) 30.3 pg 27.0-31.0 [facility] OxspfqnTSVSGRBOHJ5259-47-19 10:15:003.70[facility]annHEMATOLOGY 2015-03-23 10:15:008.9[facility] CtvcobsWUKDCVLFAE6555-36-88 10:15:0034.1[facility] RwutysnVNUXKKEMGF9086-80-82 10:15:008.3[facility] XwuoztmBFXSSQNLHT5223-87-18 10:15:63236Uzfsdxhn EiyiwwjHBLQEJOXQM0676-19-05 10:15:0013.0[facility] QPTQJOPZHC3243-50-40 10:15:007.5[facility] NenhdttWNUIPNQUSB5237-54-55 10:15:00 84.6[facility] SehpouyXVNMEIKTQI1448-84-78 10:15:000.2[facility]annHEMATOLOGY 2015-03-23 10:15:004.6[facility] RxqtyojKORILMGCWX4644-77-55 10:15:000.5[facility] NzczwxyPVGYGQHYHA3424-67-24 10:15:0010.1[facility] TvvixjlRKOKSMXHFN4950-76-46 10:15:000.4[facility] LbbwujbEPGDEVMJIJ0299-24-19 10:15:000.9[facility] HermannCHEM HUQMS5906-54-12 17:17:0067[facility] HlnbpzkQAEUNWZSRBOZ9486-90-77 17:17:0012.8 [facility] IpdqutzJNCQSMRLCQJE7027-51-90 17:17:0012[facility] HermannELECTROLYTES 2015-03-22 17:17:000.8[facility] BxmdqukIUNTYCVXGERP6330-85-98 17:17:003.8[facility] WaxnetqGOLYBKWDODJG5591-08-95 17:17:66585Mfewsjhy RcbdohmXLYPINTGBCDI5917-33-13 17:17:0062[facility] NregajaUOCPLRTSTETW4956-37-88 17:17:000.3[facility] XBJRIMTPANWN6724-77-15 17:17:0030[facility] YrcgvyiRNIVMSSTYWWI4963-81-67 17:17:00 10[facility] KlrimexOIWYVRJMKJGY5406-75-56 17:17:006.8[facility] HermannELECTROLYTES 2015-03-22 17:17:003.0[facility] ZvcpwkqKLWBIJWGMYGC1814-70-57 17:17:0024[facility] SoofjidYGPEWHFTUKGF4793-11-81 17:17:008.6[facility] RmisfxyBEIYSRSFGEMT6795-77-75 17:17:0086[facility] TkcctjfRAQJWOKWEJHF2570-92-53 17:17:003.8[facility] UZFWORPNETJA6086-35-92 17:17:78383Bbekmlew RixloktAMTLTEIIXSNA5443-99-65 17:17:000.32[facility] SwpgbyjDPTAPPIHKKAM0261-03-56 17:17:004[facility] KMDVHGRYUZQV5019-01-74 17:17:31743Snwnozjj AdzpqdoXNEISSNZRR0510-82-17 17:17:00 1.0[facility] EjvqplrMWFRTWFVEV1844-66-78 17:17:000.1[facility] HermannHEMATOLOGY 2015-03-22 17:17:000.1[facility] VwojkbiFFLVWXPOCX5782-58-71 17:17:001.4[facility] KnilkdpYDNPSTTIQN4379-06-23 17:17:000.5[facility] KxehczfCVAOENFFKT8715-35-62 17:17:004.9[facility] IfetqyoLJEJHPGPLZ9216-07-75 17:17:0070.8[facility] IUYSKKOYCK9811-58-52 17:17:0019.6[facility] QcvdtnyENZUCTLAEB2255-41-64 17:17:00 6.7[facility] QbkbnxzBPGXNZHUHQ9301-07-81 17:17:001.9[facility] HermannHEMATOLOGY 2015-03-22 17:17:008.2[facility] PobahsiBHMOZQNXUI7087-03-07 17:17:0013.4[facility] QoywxfgBXRBNBSBNY5635-50-97 17:17:92381Firezrfc QvjyakjFGIWSWMOIL7817-71-09 17:17:00* Test Item Value Reference Range Interpretation Comments MCH (test code = MCH) 30.2 pg 27.0-31.0 [facility] WoznyzxQLMKQCUDPF4876-90-02 17:17:0033.8[facility] HermannHEMATOLOGY 2015-03-22 17:17:0089.3[facility] SaijumiXPFDDHDSRQ3966-67-02 17:17:0035.9[facility] FzoxdocTAXWGHQJBU6146-48-50 17:17:004.01[facility] XdqvidbIZSOBIHNPR8160-34-47 17:17:007.0[facility] KmlmsskKRCLDMZMJA7205-44-76 17:17:0012.1[facility] URINE AND QTTBM1983-20-43 17:17:001[facility]annURINE AND QJTQY4802-25-69 17:17:001[facility] AND YDOGI0273-10-60 17:17:00Clear (03/22/15 11:17 AM)[facility] HFGFY6828-28-48 17:17:001.013[facility] AND SDYXS8551-09-55 17:17:008.0[facility] AND RBWTV4276-26-18 17:17:00Negative (03/22/15 11:17 AM)[facility] DMLTE9232-17-57 17:17:00Negative (03/22/15 11:17 AM)[facility] AND EHMHY7770-84-35 17:17:00Yellow *NA*(03/22/15 11:17 AM)[facility] WZDPJ3430-50-36 17:17:00Negative *NA*(03/22/15 11:17 AM)[facility] PNSKN9800-19-19 17:17:00Negative (03/22/15 11:17 AM)[facility] HermannCHEM IDPBU0101-77-39 14:30:00 41[facility] HermannCHEM ZTZJJ1082-11-56 14:30:0020[facility] HermannCHEM PANEL 2015-03-19 14:30:0058[facility] HermannCHEM BYUKX6473-24-09 14:30:47082Mrgroovx HermannCHEM WQECT6547-97-38 14:30:000.3[facility] HermannCHEM ZXFWJ8605-30-08 14:30:006[facility] HermannCHEM HGJEO1913-72-67 14:30:000.44[facility] HermannCHEM VYGQO6749-88-64 14:30:008.6[facility] HermannCHEM LVIMW6034-91-82 14:30:0094 [facility] HermannCHEM JKHRS1630-41-63 14:30:90932Xcjtmdcl HermannCHEM PANEL 2015-03-19 14:30:003.5[facility] HermannCHEM BZBVZ7251-42-44 14:30:73314Jmvytfek HermannCHEM XLJDZ5076-23-30 14:30:0023[facility] HermannCHEM CTMAH1501-86-76 14:30:006.9[facility] HermannCHEM RQIDF3798-80-24 14:30:003.1[facility] HermannCHEM BYUFA6472-60-78 14:30:0011.5[facility] HermannCHEM UPKOL5271-69-69 14:30:0014 [facility] HermannCHEM DCBBZ4900-57-71 14:30:003.8[facility] HermannCHEM PANEL 2015-03-19 14:30:000.8[facility] WsfchxgJLXWCOISAZLJX3499-62-14 14:30:4375238 [facility] RidycodBOOOBOEUBV7812-86-96 14:30:0012.5[facility] HermannHEMATOLOGY 2015-03-19 14:30:0036.8[facility] VwvzbyiBBYBCNFFLJ0448-85-72 14:30:006.7[facility] FjyreuhCCQWDQEGAM1917-40-88 14:30:004.12[facility] YsrkhyyLWUOMPHHRT3550-19-13 14:30:008.4[facility] XlwsfscGGELKUPPEU2408-08-14 14:30:0033.9[facility] RPIXBWZROP5871-59-52 14:30:0013.3[facility] PxjlxutJBGCSOTKJZ7554-04-18 14:30:00 227[facility] DgelcwwEMXFTGXCYD3775-00-50 14:30:0089.2[facility] HermannHEMATOLOGY 2015-03-19 14:30:00* Test Item Value Reference Range Interpretation Comments MCH (test code = MCH) 30.3 pg 27.0-31.0 [facility] QfcivetDRVRPYPDOQ8588-31-20 14:30:0071.5[facility] HermannHEMATOLOGY 2015-03-19 14:30:007.1[facility] VrqkttoKFXMFZWDGP5785-21-44 14:30:0019.1[facility] HnqqubeGDLDXGYILK4560-45-28 14:30:001.4[facility] SrlyuasDJHMLFGTNN9701-64-69 14:30:004.8[facility] GhdyehfFSMKENSWPJ6557-90-27 14:30:000.9[facility] DFOTPDNCVC1614-18-85 14:30:000.1[facility] GxrnswwOMFMZGPEDC6270-02-43 14:30:001.3 [facility] OcnalwxBNIRAILTLA2627-99-40 14:30:000.1[facility] HermannHEMATOLOGY 2015-03-19 14:30:000.5[facility]annURINE AND JAHIE6124-38-40 14:30:001 [facility] MQLSO1871-19-02 14:30:00Negative *NA*(03/19/15 8:30 AM) [facility] UPSDV0833-46-32 14:30:00Negative (03/19/15 8:30 AM) [facility] GBGVR8672-78-42 14:30:00Negative (03/19/15 8:30 AM) [facility] WQIUN3153-20-94 14:30:00Negative (03/19/15 8:30 AM) [facility] PPBIH4827-46-73 14:30:00Slight *ABN*(03/19/15 8:30 AM) [facility] SPYHH2155-29-16 14:30:001.019[facility]UR[facility] AND NGMBV7787-15-36 14:30:007.0[facility]UR[facility] AND ZCCPC0085-94-70 14:30:00 Yellow *NA*(03/19/15 8:30 AM)[facility] HermannCHEM GFMYX8975-60-25 17:43:000.3 [facility] HermannCHEM PUQOV4157-84-38 17:43:0058[facility] HermannCHEM PANEL 2015-01-07 17:43:22961Bnnvjrkj HermannCHEM ERDOU5165-11-29 17:43:0030[facility] HermannCHEM NAIJL1028-80-33 17:43:003.6[facility] HermannCHEM GIKXG9260-73-53 17:43:0072[facility] HermannCHEM UXHRW3809-31-22 17:43:85685Wmgnanec HermannCHEM QVLNN3363-41-89 17:43:0012[facility] HermannCHEM BCDPL7182-38-41 17:43:000.55 [facility] HermannCHEM OAXNI6646-48-43 17:43:0094[facility] HermannCHEM PANEL 2015-01-07 17:43:000.7[facility] HermannCHEM NAVXG2177-37-52 17:43:004.1[facility] HermannCHEM JQFLC8572-46-25 17:43:05917Relvdaiw HermannCHEM INVXL5022-97-92 17:43:007.6[facility] HermannCHEM EJNFV1188-76-65 17:43:0024[facility] HermannCHEM NNVDZ7475-22-13 17:43:008.7[facility] HermannCHEM OWNPJ0597-02-41 17:43:0099 [facility] HermannCHEM GGXGE7300-59-94 17:43:000.9[facility] HermannCHEM PANEL 2015-01-07 17:43:004.0[facility] HermannCHEM UWYIE0518-83-16 17:43:0022[facility] HermannCHEM PRVHX7960-37-05 17:43:0010.1[facility] HozoarqCHJJBMNNXC0414-32-26 17:43:000.2[facility] WojlcilSSKKQBZNHE5952-81-17 17:43:008.0[facility] KPSCTJCKRN5160-26-18 17:43:005.6[facility] SitglgcERLKBNGTHZ2208-30-29 17:43:000.1 [facility] DerkeywDKTHBKXXGC1236-60-96 17:43:005.4[facility] HermannHEMATOLOGY 2015-01-07 17:43:0088.7[facility] HnrsdrvSQBDQQOVLD2345-15-70 17:43:000.5[facility] SgwyipkMBCIMHIQKI0833-78-08 17:43:000.5[facility] DcxbycdBIHJXDHWGX1756-53-16 17:43:009.0[facility] MfwpmewEUKDIHDVVQ0298-17-95 17:43:004.69[facility] PCDATYCPSX7064-65-92 17:43:0013.7[facility] LkffakfLCNZCNESUQ8821-02-68 17:43:00 32.9[facility] YrsoztlLCKFYZUILF4001-26-66 17:43:0013.6[facility] HermannHEMATOLOGY 2015-01-07 17:43:72894Wcbxljmb NczhklnULWMKBJEHR2114-24-82 17:43:008.1[facility] BtvtpbbGZQUBEUWJY7574-61-53 17:43:0041.8[facility] BpwxashYQEMQZYBWM5780-96-84 17:43:00* Test Item Value Reference Range Interpretation Comments MCH (test code = MCH) 29.3 pg 27.0-31.0 [facility] FqvjvivITITHQBXWL4192-27-84 17:43:0089.1[facility]annURINE AND STOOL 2015-01-07 17:43:0012[facility]UR[facility] AND ZPLZJ5628-95-52 17:43:00<1 [facility] NHAQF6453-66-39 17:43:00Negative (01/07/15 11:43 AM) [facility] FLWUZ7721-85-15 17:43:00Negative (01/07/15 11:43 AM) [facility] HSLPO5046-83-77 17:43:00Negative *NA*(01/07/15 11:43 AM)[facility] WSEXL9930-56-37 17:43:00Negative (01/07/15 11:43 AM) [facility] QEHLO9099-85-14 17:43:00Yellow *NA*(01/07/15 11:43 AM) [facility] HGAGS4331-52-50 17:43:00Clear (01/07/15 11:43 AM) [facility] DBTRZ4872-85-91 17:43:001.025[facility]UR[facility] AND FVTHD0357-36-51 17:43:007.0[facility]annURINE JMTA7047-52-39 17:43:00Negative (01/07/15 11:43 AM)[facility] IsjglinHNGURAZUH8455-49-10 01:25:6251931Guroncuw RbtyasrDHPWNEAKT9872-25-27 01:25:0023[facility] KzefgewMWEWEAIBS7952-36-09 01:25:0092[facility] KaljaptGKXYPGIHW7794-46-84 01:25:004.1[facility] XRSJMUDXJ5365-07-17 01:25:000.8[facility] UfejqndIYNXLHMRV4460-83-42 01:25:0015 [facility] BvmkhuiYYKZVRLUA0840-06-31 01:25:0011.4[facility] HermannCHEMISTRY 2012-04-08 01:25:0026[facility] JifmtfuJECRYLQXG2587-54-78 01:25:0086[facility] OmxzkhbLKXAZFQLB8852-44-25 01:25:000.2[facility] LwurlyjVTGMWCSWF5962-23-89 01:25:0015[facility] LiqeezzLOTAVRRNS6056-76-97 01:25:007.4[facility] WUVOBYKCT2574-45-94 01:25:83962Kzxmekwe VycrleyPYMQXUJRV7251-29-32 01:25:008.3 [facility] EmwkusyFCLCWDMOE6085-16-28 01:25:0026[facility] HermannCHEMISTRY 2012-04-08 01:25:0080[facility] JtmbbbxPYEADHBMG9734-27-86 01:25:009[facility] KbkeypmYSHOLRUIM0425-47-42 01:25:000.6[facility] XsqzrhtLNTNMFCZL4717-27-96 01:25:39987Erjlbyrd FdrimanDXLPTTLAR3892-44-10 01:25:003.4[facility] KMCJLEJZP8586-70-08 01:25:01388Ijqgmpbb ZpqkfgqOTNKZUQPE8998-56-95 01:25:003.3 [facility] XkwmjnfIUBNGKHKQG2293-12-74 01:25:000.0[facility] HermannHEMATOLOGY 2012-04-08 01:25:001.6[facility] SfrslkgESQVXWEYOV9827-45-65 01:25:007.3[facility] IxhcbrnFPLUKPKPIG1277-91-09 01:25:001.9[facility] MygznmfKGDEUHTNUO8218-43-86 01:25:000.7[facility] AonnenuSYZZCAPPGE4390-54-89 01:25:000.2[facility] LNCZYEUCHB3884-04-26 01:25:000.4[facility] NnnlkbaASEDLUWWUW1089-67-67 01:25:00 72.5[facility] GzyfbkrPFRDRUTKNJ9123-08-90 01:25:0018.7[facility] HermannHEMATOLOGY 2012-04-08 01:25:006.8[facility] UskaoygQGKPEXESKC8605-09-94 01:25:008.1[facility] EezksptIYXJACUEAL3519-60-52 01:25:00* Test Item Value Reference Range Interpretation Comments MCH (test code = MCH) 30.4 pg 27.0-31.0 N [facility] LslcdmmARRTKQPYFB2160-20-25 01:25:56469Hsbhkhir HermannHEMATOLOGY 2012-04-08 01:25:0012.8[facility] BkwhoozRMUBDNTRTF3444-93-19 01:25:0033.1[facility] LykeftuBTMJZHNZDU8560-09-11 01:25:004.00[facility] ZkgprstTTOPOBFOGN4311-12-02 01:25:0091.8[facility] LbzazdmVJCLOFZHHW8481-31-92 01:25:0036.7[facility] SMGMKSZWGC4991-60-83 01:25:0012.1[facility] AwtaolsENFNFUCAOP6955-21-49 01:25:00 10.1[facility] DqoqrgkOVLQDVTUA9865-03-53 01:10:00Positive *ABN*(04/07/2012 19:10:00) [facility] BlghqhaFFPAGAZURK6484-38-88 01:10:00Negative (04/07/2012 19:10:00) [facility] KpasqlxSZHBZXNTQG1334-38-36 01:10:00Negative mg/dL *NA*(04/07/2012 19:10:00) [facility] JmrkbhkRRTVDQQRPZ7267-29-75 01:10:00Negative mg/dL *NA*(04/07/2012 19:10:00) [facility] JcyuzevRWRQXGWKHH7099-13-04 01:10:00 Negative mg/dL (04/07/2012 19:10:00) [facility] YzfntujPTCFPLJSMI6383-65-50 01:10:00Negative (04/07/2012 19:10:00) [facility] QjyrtzyWUJVYWMZSE3706-26-30 01:10:001[facility] RnkexogJVBMDGWRRF8195-10-11 01:10:00Negative *NA*(04/07/2012 19:10:00) [facility] DgjdojzWFNWQZSRZN1210-22-54 01:10:00Negative (04/07/2012 19:10:00) [facility] DktbkwvIAFADCZRCX9166-14-48 01:10:001[facility] DQFIWFHAAQ6844-08-64 01:10:00Occasional /HPF *NA*(04/07/2012 19:10:00) [facility] ZzltzhyGZVMPLFKTU0287-31-52 01:10:00Occasional /LPF *NA*(04/07/2012 19:10:00) [facility] GoedoyuHAMLXNTYBI5598-05-22 01:10:007.0[facility] HermannURINALYSIS 2012-04-08 01:10:001.021[facility] YtexkejSFMTPTXSQT3088-73-20 01:10:00Yellow *NA*(04/07/2012 19:10:00) [facility]0032-73-23 01:10:00Slight *ABN*(04/07/2012 19:10:00) [facility]
--- OUTSIDE RECORDS SUMMARY | 2019-09-17 11:13 | XMS REPORT | Summary of Care ---
Author Author [facility] Organization [facility] Address Unknown Phone Unavailable Encounter [facility](GAUDENCIO) [id number] Date(s): 03/22/15 - 03/23/15 [facility] [address] [place] [address]- Discharge Disposition: Home Attending Physician: Jitendra Crowley MD Admitting Physician: Jitendra Crowley MD Vital Signs 1 2 3 Most recent to oldest [Reference Range]: 170.18 cm (03/22/15 5:00 PM) Height 98.5 DegF (03/23/15 12:06 PM) 98.5 DegF (03/23/15 7:41 AM) 99.2 DegF *HI* (03/22/15 8:52 PM) Temperature Oral [96.4-99.1 DegF] 110/70 mmHg (03/23/15 12:06 PM) 109/73 mmHg (03/23/15 7:41 AM) 134/85 mmHg (03/23/15 2:11 AM) Blood Pressure [90-140/60-90 mmHg] 16 BRMIN (03/23/15 12:06 PM) 16 BRMIN (03/23/15 7:41 AM) 16 BRMIN (03/23/15 3:28 AM) Respiratory Rate [14-20 BRMIN] 76 bpm (03/23/15 12:06 PM) 73 bpm (03/23/15 7:41 AM) 84 bpm (03/23/15 2:11 AM) Peripheral Pulse Rate [60-100 bpm] 113.636 kg (03/22/15 5:00 PM) 113.636 kg (03/22/15 10:52 AM) Weight 39.24 m2 (03/22/15 5:00 PM) Body Mass Index Problem List Condition Effective Dates Status Health Status Informan t Asthma(Confirmed) Resolved Gastritis(Confirmed) Resolved Allergies, Adverse Reactions, Alerts Substance Reaction Severity Status NKDA Active Medications acetaminophen-codeine #3 2 tab, Route: PO, Drug Form: TAB, Dosing Weight 113.636, kg, Q4H, PRN Pain Score 4-6, Start date: 03/22/15 23:46:00, Duration: 30 day, Stop date: 04/21/15 23:45 :00 Notes: Do not exceed 4gm/day of acetaminophen. (Same as: Tylenol with Codeine # 3) Start Date: 03/22/15 Stop Date: 03/24/15 Status: Discontinued acetaminophen-codeine #3 1 tab, Route: PO, Drug Form: TAB, Dosing Weight 113.636, kg, Q4H, PRN Pain Score 4-6, Start date: 03/22/15 23:46:00, Duration: 30 day, Stop date: 04/21/15 23:45 :00 Notes: Do not exceed 4gm/day of acetaminophen. (Same as: Tylenol with Codeine # 3) Start Date: 03/22/15 Stop Date: 03/24/15 Status: Discontinued ceFAZolin (ANES) Route: IV, Drug form: INJ, ONCE, Stop date: 03/22/15 23:18:00 Start Date: 03/22/15 Stop Date: 03/22/15 Status: Completed ceFAZolin (SCIP) 1 gm, 100 mL, Route: IVPB, Drug form: INJ, Q8H, Dosing Weight 113.636, kg, Start date: 03/23/15 0:00:00, Duration: 1 doses or times, Stop date: 03/23/15 0:00:00 Start Date: 03/23/15 Stop Date: 03/23/15 Status: Completed cefOXitin + Sodium Chloride 0.9% IV 100 mL 2 gm, Route: IVPB, ABXQ8H, Dosing Weight 113.636, kg, Start date: 03/22/15 22:00 :00, Duration: 30 day, Stop date: 04/21/15 14:00:00 Notes: (Same As: Mefoxin) MEDICATION WASTE Product Size: 2000 mgProduct Wasted: ___ mg Start Date: 03/22/15 Stop Date: 03/22/15 Status: Discontinued dexamethasone 4 mg, Route: IVP, ONCE, Dosing Weight 113.636, kg, PRN Nausea & Vomiting, Start date: 03/23/15 0:16:00 Start Date: 03/23/15 Stop Date: 03/23/15 Status: Discontinued diphenhydrAMINE 12.5 mg, Route: IVP, Drug form: INJ, Q6H, Dosing Weight 113.636, kg, PRN Itching , Start date: 03/23/15 0:16:00, Duration: 30 day, Stop date: 04/22/15 0:15:00 Start Date: 03/23/15 Stop Date: 03/23/15 Status: Discontinued fentaNYL 50 microgram, Route: IVP, Q5Min, Dosing Weight 113.636, kg, PRN Pain Score 7-10, Start date: 03/23/15 0:16:00, Duration: 2 doses or times, Stop date: Limited # of times Start Date: 03/23/15 Stop Date: 03/23/15 Status: Discontinued fentaNYL 25 microgram, Route: IVP, Q5Min, Dosing Weight 113.636, kg, PRN Pain Score 4-6, Start date: 03/23/15 0:16:00, Duration: 4 doses or times, Stop date: Limited # o f times Start Date: 03/23/15 Stop Date: 03/23/15 Status: Discontinued fentaNYL (ANES) Route: IV, Drug form: INJ, ONCE, Stop date: 03/22/15 23:13:00 Start Date: 03/22/15 Stop Date: 03/22/15 Status: Completed flumazenil 0.2 mg, Route: IVP, PRN, Dosing Weight 113.636, kg, PRN Benzodiazepine Reversal, Initial dose, Start date: 03/23/15 0:16:00, Duration: 30 day, Stop date: 1:15:00 Start Date: 03/23/15 Stop Date: 03/23/15 Status: Discontinued glycopyrrolate 0.2 mg, Route: IVP, Q5Min, Dosing Weight 113.636, kg, PRN Bradycardia, Start topher e: 03/23/15 0:16:00, Duration: 3 doses or times, Stop date: Limited # of times Start Date: 03/23/15 Stop Date: 03/23/15 Status: Discontinued hydrALAZINE 10 mg, Route: IVP, Q20Min, Dosing Weight 113.636, kg, PRN Elevated BP, Start topher e: 03/23/15 0:16:00, Duration: 2 doses or times, Stop date: Limited # of times Start Date: 03/23/15 Stop Date: 03/23/15 Status: Discontinued hydromorphone 0.5 mg, Route: IVP, Q5Min, Dosing Weight 113.636, kg, PRN Pain Score 7-10, Start date: 03/23/15 0:16:00, Duration: 4 doses or times, Stop date: Limited # of bettina es Start Date: 03/23/15 Stop Date: 03/23/15 Status: Discontinued ketOROLAC 30 mg, Route: IVP, ONCE, Dosing Weight 113.636, kg, Start date: 03/23/15 0:16:00 , Duration: 1 doses or times, Stop date: 03/23/15 0:16:00 Start Date: 03/23/15 Stop Date: 03/23/15 Status: Discontinued ketOROLAC (ANES) IV, ONCE Start Date: 03/22/15 Stop Date: 03/22/15 Status: Completed Lactated Ringers Injection IV (ANES) (ANES) Route: IV, Total Volume: 1,000, Start date: 03/22/15 22:17:00, Stop date: 23:17:00 Start Date: 03/22/15 Stop Date: 03/22/15 Status: Completed Mefoxin 2 gm, Route: IVPB, ONCE, Dosing Weight 113.636, kg, Priority: STAT, Start date: 03/22/15 12:39:00, Stop date: 03/22/15 12:39:00 Start Date: 03/22/15 Stop Date: 03/22/15 Status: Completed meperidine 12.5 mg, Route: IVP, Q30Min, Dosing Weight 113.636, kg, PRN Other -See Comment, For shivering, Start date: 03/23/15 0:16:00, Duration: 2 doses or times, Stop da te: Limited # of times Start Date: 03/23/15 Stop Date: 03/23/15 Status: Discontinued metoprolol 1 mg, Route: IVP, Q5Min, Dosing Weight 113.636, kg, PRN Other -See Comment, Sesar t date: 03/23/15 0:16:00, Duration: 5 doses or times, Stop date: Limited # of ti mes Start Date: 03/23/15 Stop Date: 03/23/15 Status: Discontinued midazolam (ANES) Route: IV, Drug form: SOLN, ONCE, Stop date: 03/22/15 23:13:00 Start Date: 03/22/15 Stop Date: 03/22/15 Status: Completed morphine Sulfate 1 mg, 0.5 mL, Route: IVP, Drug form: INJ, Q3H, Dosing Weight 113.636, kg, PRN Pa in Score 7-10, Start date: 03/22/15 16:56:00, Duration: 30 day, Stop date: 04/20 16:55:00 Notes: (Same as:MORPhine Sulfate) Start Date: 03/22/15 Stop Date: 03/24/15 Status: Discontinued morphine Sulfate 4 mg, Route: IVP, Drug form: INJ, ONCE, Dosing Weight 113.636, kg, Priority: STA T, Start date: 03/22/15 11:21:00, Stop date: 03/22/15 11:21:00 Start Date: 03/22/15 Stop Date: 03/22/15 Status: Completed morphine Sulfate 2 mg, Route: IVP, Q5Min, Dosing Weight 113.636, kg, PRN Pain Score 4-6, Start da te: 03/23/15 0:16:00, Duration: 5 doses or times, Stop date: Limited # of times Start Date: 03/23/15 Stop Date: 03/23/15 Status: Discontinued morphine Sulfate 4 mg, Route: IVP, Q5Min, Dosing Weight 113.636, kg, PRN Pain Score 7-10, Start d ate: 03/23/15 0:16:00, Duration: 3 doses or times, Stop date: Limited # of times Start Date: 03/23/15 Stop Date: 03/23/15 Status: Discontinued naloxone 0.04 mg, Route: IVP, Q2MIN, Dosing Weight 113.636, kg, PRN Narcotic Reversal, St art date: 03/23/15 0:16:00, Duration: 8 doses or times, Stop date: Limited # of times Start Date: 03/23/15 Stop Date: 03/23/15 Status: Discontinued NexIUM 40 mg, Route: PO, BID-Before Meals, Dosing Weight 113.636, kg, Start date: 03/23 7:30:00, Duration: 30 day, Stop date: 04/21/15 16:30:00 Start Date: 03/23/15 Stop Date: 03/23/15 Status: Deleted [place] 10/325 oral tablet 1 tab, PO, Q6H, PRN Pain Score 6-10, # 30 tab, 0 Refill(s) Start Date: 03/22/15 Stop Date: 03/23/15 Status: Discontinued normal saline 0.9% IV 1,000 mL 1,000 mL, Rate: 100 ml/hr, Infuse over: 10 hr, Route: IV, Dosing Weight 113.636 kg, Total Volume: 1,000, Start date: 03/22/15 16:58:00, Duration: 30 day, Stop d ate: 04/21/15 16:57:00 Start Date: 03/22/15 Stop Date: 03/24/15 Status: Discontinued ondansetron 4 mg, Route: IVP, ONCE, Dosing Weight 113.636, kg, PRN Nausea & Vomiting, Start date: 03/23/15 0:16:00 Start Date: 03/23/15 Stop Date: 03/23/15 Status: Completed ondansetron (ANES) Route: IV, Drug form: INJ, ONCE, Stop date: 03/22/15 23:18:00 Start Date: 03/22/15 Stop Date: 03/22/15 Status: Completed oxyCODONE 5 mg, Route: PO, Drug form: TAB, Q4H, Dosing Weight 113.636, kg, PRN Pain Score 4-6, Start date: 03/23/15 0:16:00, Duration: 30 day, Stop date: 04/22/15 0:15:00 Start Date: 03/23/15 Stop Date: 03/23/15 Status: Discontinued oxyCODONE 10 mg, Route: PO, Drug form: TAB, Q4H, Dosing Weight 113.636, kg, PRN Pain Score 7-10, Start date: 03/23/15 0:16:00, Duration: 30 day, Stop date: 04/22/15 0:15: 00 Start Date: 03/23/15 Stop Date: 03/23/15 Status: Discontinued Phenergan + Sodium Chloride 0.9% IV 50 mL 12.5 mg, 0.5 mL, Route: IVPB, Q6H, Dosing Weight 113.636, kg, PRN Nausea & Vomiting, Start date: 03/22/15 16:58:00, Duration: 30 day, Stop date: 04/21/15 16:57:00 Notes: Do not give IV push. (Same as: Phenergan) Start Date: 03/22/15 Stop Date: 03/24/15 Status: Discontinued Phenergan 25 mg oral tablet 25 mg = 1 tab, PO, Q6H, PRN Nausea, X 7 day, # 28 tab, 1 Refill(s) Start Date: 03/22/15 Stop Date: 04/05/15 Status: Ordered promethazine 6.25 mg, Route: IVPB, ONCE, Dosing Weight 113.636, kg, PRN Nausea & Vomiting, Start date: 03/23/15 0:16:00 Start Date: 03/23/15 Stop Date: 03/23/15 Status: Discontinued propofol (ANES) Route: IV, Drug form: INJ, ONCE, Stop date: 03/22/15 23:13:00 Start Date: 03/22/15 Stop Date: 03/22/15 Status: Completed Protonix 40 mg, 1 tab, Route: PO, Drug form: ECTAB, BID-Before Meals, Start date: 6 7:30:00, Duration: 30 day, Stop date: 04/21/15 16:30:00 Notes: Tablet should not be chewed or crushed.(Same as: Protonix) Start Date: 03/23/15 Stop Date: 03/24/15 Status: Discontinued rocuronium (ANES) Route: IV, Drug form: INJ, ONCE, Stop date: 03/22/15 23:18:00 Start Date: 03/22/15 Stop Date: 03/22/15 Status: Completed Tylenol with Codeine #3 oral tablet 1 - 2 tab, PO, Q4H, PRN Pain, X 2 week, # 30 tab, 2 Refill(s) Start Date: 03/22/15 Stop Date: 05/03/15 Status: Ordered Zofran 4 mg, Route: IVP, Drug form: INJ, ONCE, Dosing Weight 113.636, kg, Priority: STA T, Start date: 03/22/15 11:21:00, Stop date: 03/22/15 11:21:00 Start Date: 03/22/15 Stop Date: 03/22/15 Status: Completed Results ELECTROLYTES Most recent to 1 2 oldest [Reference Range]: Sodium Lvl [135-145 137 mEq/L mEq/L] (03/22/15: AM) Potassium Lvl 3.8 mEq/L [3.5-5.1 mEq/L] (03/22/15 11:17 AM) Chloride Lvl [95-109 104 mEq/L mEq/L] (03/22/15: AM) CO2 [24-32 mEq/L] 24 mEq/L (03/22/15 11:17 AM) AGAP [10.0-20.0 12.8 mEq/L mEq/L] (03/22/15 11:17 AM) CHEM PANEL Most recent to 1 2 oldest [Reference Range]: Creatinine Lvl 0.32 mg/dL [0.50-1.40 mg/dL] *LOW* (03/22/15 11: AM) eGFR 153 mL/min/1.73m2 1 *NA* (03/22/15: AM) BUN [7-22 mg/dL] 4 mg/dL *LOW* (03/22/15 11:17 AM) B/C Ratio [6-25] 12 (03/22/15 11:17 AM) Glucose Lvl [70-99 86 mg/dL mg/dL] (03/22/15 11:17 AM) Total Protein 6.8 g/dL [6.4-8.4 g/dL] (03/22/15 11:17 AM) Albumin Lvl [3.5-5.0 3.0 g/dL g/dL] *LOW* (2/13/16 11:17 AM) Globulin [2.0-4.0 3.8 g/dL g/dL] (03/22/15 AM) A/G Ratio [0.7-1.6] 0.8 (03/22/15 AM) Calcium Lvl 8.6 mg/dL [8.5-10.5 mg/dL] (03/22/15 AM) ALT [0-65 unit/L] 30 unit/L (03/22/15 AM) AST [0-37 unit/L] 10 unit/L (03/22/15 AM) Alk Phos [39-136 62 unit/L unit/L] (03/22/15 AM) Bili Total [0.2-1.3 0.3 mg/dL mg/dL] (03/22/15 AM) Lipase Lvl [73-393 67 unit/L unit/L] *LOW* (03/22/15 AM) 1Result Comment: The eGFR is calculated using [...] mul tiplied by the estimated BMI. URINE AND STOOL Most recent to 1 2 oldest [Reference Range]: UA Turbidity [Clear] Clear (03/22/15: AM) UA Color [Yellow] Yellow *NA* (03/22/15 AM) UA pH [5.0-8.0] 8.0 (03/22/15: AM) UA Spec Grav 1.013 [<=1.030] (03/22/15 AM) UA Glucose [Negative Negative mg/dL mg/dL] *NA* (03/22/15 11:17 AM) UA Blood [Negative] Negative (03/22/15 11:17 AM) UA Ketones [Negative Negative mg/dL mg/dL] *NA* (03/22/15 11:17 AM) UA Protein [Negative Negative mg/dL mg/dL] (03/22/15 11:17 AM) UA Urobilinogen <=1.0 mg/dL [0.1-1.0 mg/dL] *NA* (03/22/15 11:17 AM) UA Bili [Negative] Negative *NA* (03/22/15 11:17 AM) UA Leuk Est Negative [Negative] (03/22/15 11:17 AM) UA Nitrite Negative [Negative] (03/22/15 11:17 AM) UA WBC [0-5 /HPF] 1 /HPF (03/22/15 11:17 AM) UA RBC [0-2 /HPF] 1 /HPF (03/22/15 11:17 AM) UA Bacteria [None Few /HPF Seen /HPF] *NA* (03/22/15 11:17 AM) UA Sq Epi [Few /LPF] Occasional /LPF *NA* (03/22/15 11:17 AM) UA Mucus [None Seen Few /LPF /LPF] *NA* (03/22/15 11:17 AM) HEMATOLOGY Most recent to 1 2 oldest [Reference Range]: WBC [3.7-10.4 K/CMM] 8.9 K/CMM 7.0 K/CMM (03/23/15 4:15 AM) (03/22/15 11:17 AM) RBC [4.20-5.40 3.70 M/CMM 4.01 M/CMM M/CMM] *LOW* *LOW* (03/23/15 4:15 AM) (03/22/15 11:17 AM) Hgb [12.0-16.0 g/dL] 11.2 g/dL 12.1 g/dL *LOW* (03/22/15 11:17 AM) (03/23/15 4:15 AM) Hct [36.0-48.0 %] 32.9 % 35.9 % *LOW* *LOW* (03/23/15 4:15 AM) (03/22/15:17 AM) MCV [80.0-98.0 fL] 88.9 fL 89.3 fL (03/23/15 4:15 AM) (03/22/15:17 AM) MCH [27.0-31.0 pg] 30.3 pg 30.2 pg (03/23/15:15 AM) (03/22/15: AM) MCHC [32.0-36.0 34.1 g/dL 33.8 g/dL g/dL] (03/23/15 4:15 AM) (03/22/15:17 AM) RDW [11.5-14.5 %] 13.0 % 13.4 % (03/23/15:15 AM) (03/22/15: AM) Platelet [133-450 236 K/CMM 237 K/CMM K/CMM] (03/23/15:15 AM) (03/22/15 AM) MPV [7.4-10.4 fL] 8.3 fL 8.2 fL (03/23/15 4:15 AM) (03/22/15:17 AM) Segs [45.0-75.0 %] 84.6 % 70.8 % *HI* (03/22/15:17 AM) (03/23/15:15 AM) Lymphocytes 10.1 % 19.6 % [20.0-40.0 %] *LOW* *LOW* (03/23/15 4:15 AM) (03/22/15:17 AM) Monocytes [2.0-12.0 4.6 % 6.7 % %] (03/23/15 4:15 AM) (03/22/15:17 AM) Eosinophils [0.0-4.0 0.2 % 1.9 % %] (03/23/15 4:15 AM) (03/22/15 11:17 AM) Basophils [0.0-1.0 0.5 % 1.0 % %] (03/23/15 4:15 AM) (03/22/15:17 AM) Segs-Bands # 7.5 K/CMM 4.9 K/CMM [1.5-8.1 K/CMM] (03/23/15 4:15 AM) (03/22/15 11:17 AM) Lymphocytes # 0.9 K/CMM 1.4 K/CMM [1.0-5.5 K/CMM] *LOW* (03/22/15 11:17 AM) (03/23/15 4:15 AM) Monocytes # [0.0-0.8 0.4 K/CMM 0.5 K/CMM K/CMM] (03/23/15 4:15 AM) (03/22/15 11:17 AM) Eosinophils # 0.1 K/CMM [0.0-0.5 K/CMM] (03/22/15 11:17 AM) Basophils # [0.0-0.2 0.1 K/CMM K/CMM] (03/22/15 11:17 AM) Immunizations No data available for this section Procedures Procedure Date Related Diagnosis Body Site CS - section CS - section Social History Social History Type Response Smoking Status Never smoker; Exposure to T obacco Smoke None; Cigarette Smoking Last 365 Days No; Reg Smoking Cessation Counseli ng No Assessment and Plan Extracted from: Title: Clinical Document Author: Jitendra Crowley MD ate: 03/23/15 Progress Note - Daily [facility] Completed: Mar, 11:53 by Jitendra Crowley MD RM: 427 - 1P, SE [id number], [id number] (: 1985) F Attending: Jitendra Crowley MDPhone: Service: General Surgery Service Reason for Admission: RUQ PAIN, ACUTE APPENDICITIS, DEMISE Working DRG: Other digestive system diagnoses w/o CC/JAIL Code status: Full Code [Ordered]Current diet: Isolation: None Documented Allergies: NKDA SUBJECTIVE Pain decreased. Amb. Deb po. OBJECTIVE And w incisional tenderness and no peritonitis 24hr Labs 03/23 0415 WBC8.9 RBC3.70 L Hgb11.2 L Hct32.9 L MCV88.9 MCH30.3 MCHC34.1 RDW13.0 Ozmbxaqs743 MPV8.3 Segs84.6 H Monocytes4.6 Femntbpdrci65.1 L Eosinophils0.2 Basophils0.5 Segs-Bands #7.5 Lymphocytes #0.9 L Monocytes #0.4 Neely still necessary (Yes/No): Line still necessary (Yes/No): VitalsTmp(F)[id number] 03/23 07:4198.912770/7316------ 03/23 03:28 1695 21% 03/23 02:11----[id number]------ 03/23 01:41----72691/6216------ 03/23 01:11----46673/7414------ 24 Hr Tmax: 99.2F (37.33c) at 03/22 20:5 2Vital Signs are the last 5 in the past 48 hours. DateWt(kg)Wt(lb)Ht(cm)Ht(in)Method 03/22 (initial)113.64 250.00Measured 70.18 67.00Stated I&ORecordInOutBal 1424hr Tot 1000 0 1000 1324hr Tot 2458 100 2358 Medications (17) Active [...] 1,000 mL) 1,000 mL 100 ml/hr ASSESSMENT & EXAM PLAN & TREATMENT Discharge home. DIAGNOSES & PROBLEMS Ready for Discharge (Yes/No)? TEACHING ATTESTATION
--- OUTSIDE RECORDS SUMMARY | 2019-09-17 11:13 | XMS REPORT | Summary of Care ---
Author Author [facility] Organization [facility] Address Unknown Phone Unavailable Encounter MATTHEW Holloway(GAUDENCIO) [id number] Date(s): 05/12/15 - 05/12/15 [facility] [address] [place] [address]- [phone] Discharge Disposition: Home Attending Physician: Robb Vasquez MD Referring Physician: Robb Vasquez MD Vital Signs 1 2 3 Most recent to oldest [Reference Range]: 167.64 cm (05/08/15 2:29 PM) Height 98.4 DegF (05/08/15 2:57 PM) Temperature Oral [96.4-99.1 DegF] 114/60 mmHg (05/12/15 3:00 PM) 126/63 mmHg (05/12/15 2:15 PM) 120/67 mmHg (05/12/15 2:00 PM) Blood Pressure [90-140/60-90 mmHg] 18 BRMIN (05/12/15 3:00 PM) 18 BRMIN (05/12/15 2:15 PM) 15 BRMIN (05/12/15 2:00 PM) Respiratory Rate [14-20 BRMIN] 80 bpm (05/08/15 2:57 PM) Peripheral Pulse Rate [60-100 bpm] 114.545 kg (05/08/15 2:29 PM) Weight 40.76 m2 (05/08/15 2:29 PM) Body Mass Index Problem List Condition Effective Dates Status Health Status Informan t Anxiety(Confirmed) Active Asthma(Confirmed) Resolved Cholelithiasis(Confi Active rmed) Gastritis(Confirmed) Resolved Morbid Active obesity(Confirmed) Allergies, Adverse Reactions, Alerts Substance Reaction Severity Status NKDA Active Medications acetaminophen (ANES) Route: IV, Drug form: INJ, ONCE, Stop date: 05/12/15 13:07:00 Start Date: 05/12/15 Stop Date: 05/12/15 Status: Completed ceFAZolin (ANES) Route: IV, Drug form: INJ, ONCE, Stop date: 05/12/15 12:37:00 Start Date: 05/12/15 Stop Date: 05/12/15 Status: Completed Colace 100 mg oral capsule 100 mg = 1 cap, PO, BID, PRN Constipation, # 20 cap, 0 Refill(s), Pharmacy: [facility] [id number] Start Date: 05/12/15 Status: Ordered fentaNYL 25 microgram, 0.5 mL, Route: IVP, Drug form: INJ, Q5Min, Dosing Weight 114.545, kg, PRN Pain Score 4-6, Start date: 05/12/15 13:27:00, Duration: 4 doses or time s, Stop date: Limited # of times Notes: (Same as: Sublimaze) Preservative free. Start Date: 05/12/15 Stop Date: 05/12/15 Status: Discontinued fentaNYL (ANES) Route: IV, Drug form: INJ, ONCE, Stop date: 05/12/15 12:37:00 Start Date: 05/12/15 Stop Date: 05/12/15 Status: Completed flumazenil 0.2 mg, 2 mL, Route: IVP, Drug form: INJ, PRN, Dosing Weight 114.545, kg, PRN Be nzodiazepine Reversal, Initial dose, Start date: 05/12/15 13:27:00, Duration: 30 day, Stop date: 06/11/15 13:26:00 Notes: (Same as: Romazicon) Start Date: 05/12/15 Stop Date: 05/12/15 Status: Discontinued glycopyrrolate (ANES) Route: IV, Drug form: INJ, ONCE, Stop date: 05/12/15 13:23:00 Start Date: 05/12/15 Stop Date: 05/12/15 Status: Completed hydrALAZINE 10 mg, 0.5 mL, Route: IVP, Drug form: INJ, Q20Min, Dosing Weight 114.545, kg, LA N Elevated BP, Start date: 05/12/15 13:27:00, Duration: 2 doses or times, Stop d ate: Limited # of times Notes: (Same as: Apresoline)Push over 5 minutes Start Date: 05/12/15 Stop Date: 05/12/15 Status: Discontinued hydromorphone 0.5 mg, 0.5 mL, Route: IVP, Drug form: INJ, Q5Min, Dosing Weight 114.545, kg, LA N Pain Score 7-10, Start date: 05/12/15 13:27:00, Duration: 4 doses or times, St op date: Limited # of times Start Date: 05/12/15 Stop Date: 05/12/15 Status: Discontinued Lactated Ringers Injection IV (ANES) (ANES) Route: IV, Total Volume: 1,000, Start date: 05/12/15 11:52:00, Stop date: 12:52:00 Start Date: 05/12/15 Stop Date: 05/12/15 Status: Completed Lactated Ringers Injection IV 1,000 mL 1,000 mL, Rate: 25 ml/hr, Infuse over: 40 hr, Route: IV, Dosing Weight 114.545 k g, Total Volume: 1,000, Start date: 05/12/15 11:13:00, Duration: 30 day, Stop da te: 06/11/15 11:12:00 Start Date: 05/12/15 Stop Date: 05/12/15 Status: Discontinued lidocaine (ANES) Route: IV, Drug form: INJ, ONCE, Stop date: 05/12/15 12:42:00 Start Date: 05/12/15 Stop Date: 05/12/15 Status: Completed meperidine 12.5 mg, 0.25 mL, Route: IVP, Drug form: INJ, Q30Min, Dosing Weight 114.545, kg, PRN Other -See Comment, For shivering, Start date: 05/12/15 13:27:00, Duration: 2 doses or times, Stop date: Limited # of times Notes: (Same As: Demerol) Start Date: 05/12/15 Stop Date: 05/12/15 Status: Discontinued metoprolol 1 mg, 1 mL, Route: IVP, Drug form: INJ, Q5Min, Dosing Weight 114.545, kg, PRN Ot her -See Comment, Start date: 05/12/15 13:27:00, Duration: 5 doses or times, Sto p date: Limited # of times Notes: (Same as: Lopressor)Push over 2 minutes Start Date: 05/12/15 Stop Date: 05/12/15 Status: Discontinued midazolam (ANES) Route: IV, Drug form: SOLN, ONCE, Stop date: 05/12/15 12:37:00 Start Date: 05/12/15 Stop Date: 05/12/15 Status: Completed multivitamin Daily, 0 Refill(s) Start Date: 05/08/15 Status: Ordered naloxone 0.04 mg, 0.1 mL, Route: IVP, Drug form: INJ, Q2MIN, Dosing Weight 114.545, kg, P RN Narcotic Reversal, Start date: 05/12/15 13:27:00, Duration: 8 doses or times, Stop date: Limited # of times Notes: Same as Narcan Start Date: 05/12/15 Stop Date: 05/12/15 Status: Discontinued neostigmine (ANES) Route: IV, Drug form: INJ, ONCE, Stop date: 05/12/15 13:23:00 Start Date: 05/12/15 Stop Date: 05/12/15 Status: Completed Posey 10/325 oral tablet 1 tab, Route: PO, Drug Form: TAB, Dosing Weight 114.545, kg, ONCE, Start date: 0 05/12/15 13:27:00, Stop date: 05/12/15 13:27:00 Notes: Do not exceed 4gm/day of acetaminophen. (Same as: Posey 325/10) Start Date: 05/12/15 Stop Date: 05/12/15 Status: Discontinued ondansetron 4 mg, 2 mL, Route: IVP, Drug form: INJ, ONCE, Dosing Weight 114.545, kg, PRN Miguel sea & Vomiting, Start date: 05/12/15 13:27:00 Notes: (Same as: Joon) MEDICATION WASTE Product Size: 4 mgProduct Was ruth ann: ___ mg Start Date: 05/12/15 Stop Date: 05/12/15 Status: Completed ondansetron (ANES) Route: IV, Drug form: INJ, ONCE, Stop date: 05/12/15 12:37:00 Start Date: 05/12/15 Stop Date: 05/12/15 Status: Completed oxyCODONE 5 mg, 1 tab, Route: PO, Drug form: TAB, Q4H, Dosing Weight 114.545, kg, PRN Pain Score 4-6, Start date: 05/12/15 13:27:00, Duration: 30 day, Stop date: 06/11/15 13:26:00 Notes: (Same as: Roxicodone) Start Date: 05/12/15 Stop Date: 05/12/15 Status: Discontinued oxyCODONE 10 mg, 2 tab, Route: PO, Drug form: TAB, Q4H, Dosing Weight 114.545, kg, PRN Samir n Score 7-10, Start date: 05/12/15 13:27:00, Duration: 30 day, Stop date: 13:26:00 Notes: (Same as: Roxicodone) Start Date: 05/12/15 Stop Date: 05/12/15 Status: Discontinued propofol (ANES) Route: IV, Drug form: INJ, ONCE, Stop date: 05/12/15 12:32:00 Start Date: 05/12/15 Stop Date: 05/12/15 Status: Completed rocuronium (ANES) Route: IV, Drug form: INJ, ONCE, Stop date: 05/12/15 12:47:00 Start Date: 05/12/15 Stop Date: 05/12/15 Status: Completed tramadol 50 mg oral tablet 50 mg = 1 tab, PO, Q6H, PRN Pain, X 10 day, # 40 tab, 0 Refill(s) Start Date: 05/12/15 Stop Date: 05/22/15 Status: Ordered Results URINE CHEM Most recent to 1 oldest [Reference Range]: U Preg [Negative] Negative (05/12/15 10:16 AM) Immunizations No data available for this section Procedures Procedure Date Related Diagnosis Body Site Appendectomy 03/22/15 D&C - Dilatation and curettage 03/22/15 CS - section CS - section Social History Social History Type Response Alcohol Current, Type Beer. Freque ncy: 1-2 times per month. Previous treatment: None. Smoking Status Never smoker; Exposure to T obacco Smoke None; Cigarette Smoking Last 365 Days No; Reg Smoking Cessation Counseli ng No1 1husband smokes outside Assessment and Plan Extracted from: Title: Clinical Document Author: Robb Vasquez MD Date: [...] INDICATIONS: A 29-year-old lady that presented to [facility] with abdominal pain. At this time, the [...] was closed using 0 Vicryl in a [id number] manner, and the skin was closed using 4-0 Monocryl in running subcuticular manner. The skin and three 5-mm ports were closed using 4-0 Monocryl in simple U-stitch manner. The patient was extubated in the operating room and transferred to recovery in stable condition. All instrument and laparotomy counts were correct.
--- OUTSIDE RECORDS SUMMARY | 2019-09-17 11:13 | XMS REPORT | Summary of Care ---
Author Author [facility] Organization [facility] Address Unknown Phone Unavailable Encounter MATTHEW Holloway(GAUDENCIO) [id number] Date(s): 02/26/16 - 02/26/16 [facility] [address] [place] [address]- [phone] Discharge Disposition: Home or Self Care Attending Physician: Physician, Non Associated MD Referring Physician: Rolf Moran MD Vital Signs Most recent to 1 oldest [Reference Range]: Blood Pressure 118/77 mmHg [90-140/60-90 mmHg] (02/26/16 10:49 AM) Respiratory Rate 18 BRMIN [14-20 BRMIN] (02/26/16 10:49 AM) Problem List Condition Effective Dates Status Health Status Informan t Anxiety(Confirmed) Active Asthma(Confirmed) Resolved Cholelithiasis(Confi Active rmed) Gastritis(Confirmed) Resolved Morbid Active obesity(Confirmed) Allergies, Adverse Reactions, Alerts Substance Reaction Severity Status NKDA Active Medications No Known Medications Results No data available for this section Immunizations No data available for this section Procedures Procedure Date Related Diagnosis Body Site Laparoscopic cholecystectomy 05/12/15 Appendectomy 03/22/15 D&C - Dilatation and curettage 03/22/15 CS - section CS - section Social History Social History Type Response Alcohol Current, Type Beer. Freque ncy: 1-2 times per month. Previous treatment: None. Smoking Status Never smoker; Exposure to T obacco Smoke None; Cigarette Smoking Last 365 Days No; Reg Smoking Cessation Counseli ng No1 1husband smokes outside Assessment and Plan No data available for this section
--- OUTSIDE RECORDS SUMMARY | 2019-09-17 11:13 | XMS REPORT | Summary of Care ---
Author Author [facility] Organization [facility] Address Unknown Phone Unavailable Encounter MATTHEW Holloway(GAUDENCIO) [id number] Date(s): 01/07/15 - 01/07/15 [facility] [address] [place] [address]- Discharge Diagnosis: Biliary colic Discharge Disposition: Home Attending Physician: Watson Hammond MD Vital Signs Most recent to 1 2 oldest [Reference Range]: Height 165.1 cm (01/07/15 11:12 AM) Temperature Oral 98.5 DegF 98.5 DegF [96.4-99.1 DegF] (01/07/15 2:56 PM) (01/07/15 11:12 AM) Blood Pressure 118/68 mmHg 128/84 mmHg [90-140/60-90 mmHg] (01/07/15 2:56 PM) (01/07/15 11:12 AM) Respiratory Rate 16 BRMIN 18 BRMIN [14-20 BRMIN] (01/07/15 2:56 PM) (01/07/15 11:12 AM) Peripheral Pulse 107 bpm 131 bpm Rate [60-100 bpm] *HI* *HI* (01/07/15 2:56 PM) (01/07/15 11:12 AM) Weight 159.091 kg (01/07/15 11:12 AM) Body Mass Index 58.36 m2 (01/07/15 11:12 AM) Problem List Condition Effective Dates Status Health Status Informan t Asthma(Confirmed) Resolved Gastritis(Confirmed) Resolved Allergies, Adverse Reactions, Alerts Substance Reaction Severity Status NKDA Active Medications GI cocktail 30 mL, Route: PO, Dosing Weight 159.091, kg, ONCE, STAT, Start date: 01/07/15 13 :48:00, Stop date: 01/07/15 13:48:00 Start Date: 01/07/15 Stop Date: 01/07/15 Status: Completed morphine Sulfate 4 mg, Route: IVP, ONCE, Dosing Weight 159.091, kg, Priority: STAT, Start date: 03/10/14 11:32:00, Stop date: 01/07/15 11:32:00 Start Date: 01/07/15 Stop Date: 01/07/15 Status: Completed ondansetron 4 mg, Route: IVP, Drug form: INJ, ONCE, Dosing Weight 159.091, kg, Priority: STA T, Start date: 01/07/15 11:32:00, Stop date: 01/07/15 11:32:00 Start Date: 01/07/15 Stop Date: 01/07/15 Status: Completed Sodium Chloride 0.9% (Bolus) IV 1,000 mL, 1,000 ml/hr, Infuse Over: 1 hr, Route: IV, ONCE, Priority: STAT, Dosin g Weight 159.091 kg, Start date: 01/07/15 11:32:00, Duration: 1 doses or times, Stop date: 01/07/15 11:32:00 Start Date: 01/07/15 Stop Date: 01/07/15 Status: Completed Zofran ODT 4 mg oral tablet, disintegrating 4 mg = 1 tab, PO, BID, PRN Nausea and Vomiting, Dissolve tab under tongue, X 5 d ay, # 30 tab, 0 Refill(s) Start Date: 01/07/15 Stop Date: 01/12/15 Status: Ordered Results ELECTROLYTES Most recent to 1 oldest [Reference Range]: Sodium Lvl [135-145 134 mEq/L mEq/L] *LOW* (01/07/15 11:43 AM) Potassium Lvl 4.1 mEq/L [3.5-5.1 mEq/L] (01/07/15 11:43 AM) Chloride Lvl [95-109 104 mEq/L mEq/L] (01/07/15 11:43 AM) CO2 [24-32 mEq/L] 24 mEq/L (01/07/15 11:43 AM) AGAP [10.0-20.0 10.1 mEq/L mEq/L] (01/07/15 11:43 AM) CHEM PANEL Most recent to 1 oldest [Reference Range]: Creatinine Lvl 0.55 mg/dL [0.50-1.40 mg/dL] (01/07/15 11:43 AM) eGFR 128 mL/min/1.73m2 1 *NA* (01/07/15 11:43 AM) BUN [7-22 mg/dL] 12 mg/dL (01/07/15 11:43 AM) B/C Ratio [6-25] 22 (01/07/15 11:43 AM) Glucose Lvl [70-99 99 mg/dL mg/dL] (01/07/15 11:43 AM) Total Protein 7.6 g/dL [6.4-8.4 g/dL] (01/07/15 11:43 AM) Albumin Lvl [3.5-5.0 3.6 g/dL g/dL] (01/07/15:43 AM) Globulin [2.0-4.0 4.0 g/dL g/dL] (01/07/15 11:43 AM) A/G Ratio [0.7-1.6] 0.9 (01/07/15 11:43 AM) Calcium Lvl 8.7 mg/dL [8.5-10.5 mg/dL] (01/07/15 11:43 AM) ALT [0-65 unit/L] 72 unit/L *HI* (01/07/15 11:43 AM) AST [0-37 unit/L] 30 unit/L (01/07/15 11:43 AM) Alk Phos [39-136 94 unit/L unit/L] (01/07/15 11:43 AM) Bili Total [0.2-1.3 0.7 mg/dL mg/dL] (01/07/15 11:43 AM) Lipase Lvl [73-393 58 unit/L unit/L] *LOW* (01/07/15 11:43 AM) Lactic Acid Lvl 0.3 mMol/L [0.5-2.2 mMol/L] *LOW* (01/07/15 11:43 AM) 1Result Comment: The eGFR is calculated [...] oldest [Reference Range]: U Preg [Negative] Negative (01/07/15 11:43 AM) URINE AND STOOL Most recent to 1 oldest [Reference Range]: UA Turbidity [Clear] Clear (01/07/15 11:43 AM) UA Color [Yellow] Yellow *NA* (01/07/15 11:43 AM) UA pH [5.0-8.0] 7.0 (01/07/15 11:43 AM) UA Spec Grav 1.025 [<=1.030] (01/07/15 11:43 AM) UA Glucose [Negative Negative mg/dL mg/dL] *NA* (01/07/15 11:43 AM) UA Blood [Negative] Negative (01/07/15 11:43 AM) UA Ketones [Negative Negative mg/dL mg/dL] *NA* (01/07/15 11:43 AM) UA Protein [Negative Negative mg/dL mg/dL] (01/07/15 11:43 AM) UA Urobilinogen <=1.0 mg/dL [0.1-1.0 mg/dL] *NA* (01/07/15 11:43 AM) UA Bili [Negative] Negative *NA* (01/07/15 11:43 AM) UA Leuk Est Negative [Negative] (01/07/15 11:43 AM) UA Nitrite Negative [Negative] (01/07/15 11:43 AM) UA WBC [0-5 /HPF] <1 /HPF (01/07/15 11:43 AM) UA RBC [0-2 /HPF] 12 /HPF *HI* (01/07/15 11:43 AM) UA Sq Epi [Few /LPF] Moderate /LPF *ABN* (01/07/15 11:43 AM) HEMATOLOGY Most recent to 1 oldest [Reference Range]: WBC [3.7-10.4 K/CMM] 9.0 K/CMM (01/07/15 11:43 AM) RBC [4.20-5.40 4.69 M/CMM M/CMM] (01/07/15 11:43 AM) Hgb [12.0-16.0 g/dL] 13.7 g/dL (01/07/15 11:43 AM) Hct [36.0-48.0 %] 41.8 % (01/07/15 11:43 AM) MCV [80.0-98.0 fL] 89.1 fL (01/07/15 11:43 AM) MCH [27.0-31.0 pg] 29.3 pg (01/07/15 11:43 AM) MCHC [32.0-36.0 32.9 g/dL g/dL] (01/07/15 11:43 AM) RDW [11.5-14.5 %] 13.6 % (01/07/15 11:43 AM) Platelet [133-450 248 K/CMM K/CMM] (01/07/15 11:43 AM) MPV [7.4-10.4 fL] 8.1 fL (01/07/15 11:43 AM) Segs [45.0-75.0 %] 88.7 % *HI* (01/07/15 11:43 AM) Lymphocytes 5.4 % [20.0-40.0 %] *LOW* (01/07/15 11:43 AM) Monocytes [2.0-12.0 5.6 % %] (01/07/15 11:43 AM) Eosinophils [0.0-4.0 0.1 % %] (01/07/15 11:43 AM) Basophils [0.0-1.0 0.2 % %] (01/07/15 11:43 AM) Segs-Bands # 8.0 K/CMM [1.5-8.1 K/CMM] (01/07/15 11:43 AM) Lymphocytes # 0.5 K/CMM [1.0-5.5 K/CMM] *LOW* (01/07/15 11:43 AM) Monocytes # [0.0-0.8 0.5 K/CMM K/CMM] (01/07/15 11:43 AM) Immunizations No data available for this section Procedures Procedure Date Related Diagnosis Body Site CS - section Social History Social History Type Response Smoking Status Never smoker; Exposure to T obacco Smoke None; Cigarette Smoking Last 365 Days No; Reg Smoking Cessation Counseli phillip No Assessment and Plan No data available for this section
--- OUTSIDE RECORDS SUMMARY | 2019-09-17 11:13 | XMS REPORT | Summary of Care ---
Author Author [facility] Organization [facility] Address Unknown Phone Unavailable Encounter MATTHEW Holloway(GAUDENCIO) [id number] Date(s): 03/19/15 - 03/19/15 [facility] [address] [place] [address]- [phone] Discharge Diagnosis: Abnormality in heart rate and rhythm complicating lab or and delivery Final: Missed Final: 13 weeks gestation of Discharge Disposition: Home Attending Physician: Leonardo Johnson MD Vital Signs 1 2 3 Most recent to oldest [Reference Range]: 170.18 cm (03/19/15 7:57 AM) Height 98.2 DegF (03/19/15 11:35 AM) 98.1 DegF (03/19/15 7:57 AM) Temperature Oral [96.4-99.1 DegF] 132/78 mmHg (03/19/15 11:35 AM) 145/77 mmHg *HI* (03/19/15 7:57 AM) Blood Pressure [90-140/60-90 mmHg] 138 mmHg (03/19/15 8:21 AM) Systolic Blood Pressure [90-140 mmHg] 68 mmHg (03/19/15 8:21 AM) Diastolic Blood Pressure [60-90 mmHg] 16 BRMIN (03/19/15 11:35 AM) 18 BRMIN (03/19/15 8:21 AM) 18 BRMIN (03/19/15 7:57 AM) Respiratory Rate [14-20 BRMIN] 80 bpm (03/19/15 11:35 AM) 80 bpm (03/19/15 8:21 AM) 78 bpm (03/19/15 7:57 AM) Peripheral Pulse Rate [60-100 bpm] 115.909 kg (03/19/15 7:57 AM) Weight 40.02 m2 (03/19/15 7:57 AM) Body Mass Index Problem List Condition Effective Dates Status Health Status Informan t Asthma(Confirmed) Resolved Gastritis(Confirmed) Resolved Allergies, Adverse Reactions, Alerts Substance Reaction Severity Status NKDA Active Medications NexIUM 40 mg oral delayed release capsule 40 mg = 1 cap, PO, Daily, # 30 cap, 0 Refill(s) Start Date: 03/19/15 Status: Ordered Results BLOOD BANK RESULTS Most recent to 1 oldest [Reference Range]: ABO/Rh O POS *Unknown* (03/19/15 8:30 AM) ELECTROLYTES Most recent to 1 oldest [Reference Range]: Sodium Lvl [135-145 137 mEq/L mEq/L] (03/19/15 8:30 AM) Potassium Lvl 3.5 mEq/L [3.5-5.1 mEq/L] (03/19/15 8:30 AM) Chloride Lvl [95-109 106 mEq/L mEq/L] (03/19/15 8:30 AM) CO2 [24-32 mEq/L] 23 mEq/L *LOW* (03/19/15 8:30 AM) AGAP [10.0-20.0 11.5 mEq/L mEq/L] (03/19/15 8:30 AM) CHEM PANEL Most recent to 1 oldest [Reference Range]: Creatinine Lvl 0.44 mg/dL [0.50-1.40 mg/dL] *LOW* (03/19/15 8:30 AM) eGFR 138 mL/min/1.73m2 1 *NA* (03/19/15 8:30 AM) BUN [7-22 mg/dL] 6 mg/dL *LOW* (03/19/15 8:30 AM) B/C Ratio [6-25] 14 (03/19/15 8:30 AM) Glucose Lvl [70-99 94 mg/dL mg/dL] (03/19/15 8:30 AM) Total Protein 6.9 g/dL [6.4-8.4 g/dL] (03/19/15 8:30 AM) Albumin Lvl [3.5-5.0 3.1 g/dL g/dL] *LOW* (03/19/15 8:30 AM) Globulin [2.0-4.0 3.8 g/dL g/dL] (03/19/15 8:30 AM) A/G Ratio [0.7-1.6] 0.8 (03/19/15 8:30 AM) Calcium Lvl 8.6 mg/dL [8.5-10.5 mg/dL] (03/19/15 8:30 AM) ALT [0-65 unit/L] 41 unit/L (03/19/15 8:30 AM) AST [0-37 unit/L] 20 unit/L (03/19/15 8:30 AM) Alk Phos [39-136 58 unit/L unit/L] (03/19/15 8:30 AM) Bili Total [0.2-1.3 0.3 mg/dL mg/dL] (03/19/15 8:30 AM) 1Result Comment: The eGFR is calculated [...] be mul tiplied by the estimated BMI. ENDOCRINOLOGY Most recent to 1 oldest [Reference Range]: [place] [address] mIU/mL *NA* (03/19/15 8:30 AM) URINE AND STOOL Most recent to 1 oldest [Reference Range]: UA Turbidity [Clear] Slight *ABN* (03/19/15 8:30 AM) UA Color [Yellow] Yellow *NA* (03/19/15 8:30 AM) UA pH [5.0-8.0] 7.0 (03/19/15 8:30 AM) UA Spec Grav 1.019 [<=1.030] (03/19/15 8:30 AM) UA Glucose [Negative Negative mg/dL mg/dL] *NA* (03/19/15 8:30 AM) UA Blood [Negative] Negative (03/19/15 8:30 AM) UA Ketones [Negative Negative mg/dL mg/dL] *NA* (03/19/15 8:30 AM) UA Protein [Negative Negative mg/dL mg/dL] (03/19/15 8:30 AM) UA Urobilinogen <=1.0 mg/dL [0.1-1.0 mg/dL] *NA* (03/19/15 8:30 AM) UA Bili [Negative] Negative *NA* (03/19/15 8:30 AM) UA Leuk Est Negative [Negative] (03/19/15 8:30 AM) UA Nitrite Negative [Negative] (03/19/15 8:30 AM) UA WBC [0-5 /HPF] 1 /HPF (03/19/15 8:30 AM) UA Bacteria [None Occasional /HPF Seen /HPF] *NA* (03/19/15 8:30 AM) UA Sq Epi [Few /LPF] Moderate /LPF *ABN* (03/19/15 8:30 AM) UA Mucus [None Seen Few /LPF /LPF] *NA* (03/19/15 8:30 AM) HEMATOLOGY Most recent to 1 oldest [Reference Range]: WBC [3.7-10.4 K/CMM] 6.7 K/CMM (03/19/15 8:30 AM) RBC [4.20-5.40 4.12 M/CMM M/CMM] *LOW* (03/19/15 8:30 AM) Hgb [12.0-16.0 g/dL] 12.5 g/dL (03/19/15 8:30 AM) Hct [36.0-48.0 %] 36.8 % (03/19/15 8:30 AM) MCV [80.0-98.0 fL] 89.2 fL (03/19/15 8:30 AM) MCH [27.0-31.0 pg] 30.3 pg (03/19/15 8:30 AM) MCHC [32.0-36.0 33.9 g/dL g/dL] (03/19/15 8:30 AM) RDW [11.5-14.5 %] 13.3 % (03/19/15 8:30 AM) Platelet [133-450 227 K/CMM K/CMM] (03/19/15 8:30 AM) MPV [7.4-10.4 fL] 8.4 fL (03/19/15 8:30 AM) Segs [45.0-75.0 %] 71.5 % (03/19/15 8:30 AM) Lymphocytes 19.1 % [20.0-40.0 %] *LOW* (03/19/15 8:30 AM) Monocytes [2.0-12.0 7.1 % %] (03/19/15 8:30 AM) Eosinophils [0.0-4.0 1.4 % %] (03/19/15 8:30 AM) Basophils [0.0-1.0 0.9 % %] (03/19/15 8:30 AM) Segs-Bands # 4.8 K/CMM [1.5-8.1 K/CMM] (03/19/15 8:30 AM) Lymphocytes # 1.3 K/CMM [1.0-5.5 K/CMM] (03/19/15 8:30 AM) Monocytes # [0.0-0.8 0.5 K/CMM K/CMM] (03/19/15 8:30 AM) Eosinophils # 0.1 K/CMM [0.0-0.5 K/CMM] (03/19/15 8:30 AM) Basophils # [0.0-0.2 0.1 K/CMM K/CMM] (03/19/15 8:30 AM) Immunizations No data available for this section Procedures Procedure Date Related Diagnosis Body Site CS - section Social History Social History Type Response Smoking Status Never smoker; Exposure to T obacco Smoke None; Cigarette Smoking Last 365 Days No; Reg Smoking Cessation Counseli ng No Assessment and Plan No data available for this section
--- OUTSIDE RECORDS SUMMARY | 2019-09-17 11:13 | XMS REPORT | Summary of Care ---
Author Author [facility] Organization [facility] Address Unknown Phone Unavailable Encounter MATTHEW Holloway(GAUDENCIO) [id number] Date(s): 05/05/15 - 05/06/15 [facility] [address] [place] [address]- Discharge Diagnosis: Other cholelithiasis without obstruction Discharge Disposition: Home Attending Physician: Reza Lagos DO Vital Signs 1 2 3 Most recent to oldest [Reference Range]: 170.18 cm (05/05/15 6:32 PM) Height 98.4 DegF (05/06/15 12:50 AM) 98.6 DegF (05/05/15 10:45 PM) 98.8 DegF (05/05/15 6:32 PM) Temperature Oral [96.4-99.1 DegF] 140/68 mmHg (05/06/15 12:50 AM) 138/72 mmHg (05/05/15 10:45 PM) 150/81 mmHg *HI* (05/05/15 6:32 PM) Blood Pressure [90-140/60-90 mmHg] 17 BRMIN (05/06/15 12:50 AM) 18 BRMIN (05/05/15 10:45 PM) 18 BRMIN (05/05/15 6:32 PM) Respiratory Rate [14-20 BRMIN] 83 bpm (05/06/15 12:50 AM) 91 bpm (05/05/15 10:45 PM) 106 bpm *HI* (05/05/15 6:32 PM) Peripheral Pulse Rate [60-100 bpm] 113.636 kg (05/05/15 6:32 PM) Weight 39.24 m2 (05/05/15 6:32 PM) Body Mass Index Problem List Condition Effective Dates Status Health Status Informan t Anxiety(Confirmed) Active Asthma(Confirmed) Resolved Cholelithiasis(Confi Active rmed) Gastritis(Confirmed) Resolved Morbid Active obesity(Confirmed) Allergies, Adverse Reactions, Alerts Substance Reaction Severity Status NKDA Active Medications Bentyl 20 mg, 2 mL, Route: IM, Drug form: INJ, ONCE, Dosing Weight 115.199, kg, Start d ate: 05/05/15 18:31:00, Stop date: 05/05/15 18:31:00 Notes: (Same as: Bentyl) Start Date: 05/05/15 Stop Date: 05/06/15 Status: Completed Bentyl 20 mg, Route: IM, ONCE, Dosing Weight 113.636, kg, Start date: 05/05/15 23:28:00 , Stop date: 05/05/15 23:28:00 Start Date: 05/05/15 Stop Date: 05/06/15 Status: Completed Bentyl 20 mg oral tablet 20 mg = 1 tab, PO, QID, # 40 tab, 0 Refill(s), Pharmacy: [facility] Start Date: 05/05/15 Stop Date: 05/15/15 Status: Ordered Results ELECTROLYTES Most recent to 1 oldest [Reference Range]: Sodium Lvl [135-145 139 mEq/L mEq/L] (05/05/15 9:23 PM) Potassium Lvl 4.1 mEq/L [3.5-5.1 mEq/L] (05/05/15 9:23 PM) Chloride Lvl [95-109 106 mEq/L mEq/L] (05/05/15 9:23 PM) CO2 [24-32 mEq/L] 27 mEq/L (05/05/15 9:23 PM) AGAP [10.0-20.0 10.1 mEq/L mEq/L] (05/05/15 9:23 PM) CHEM PANEL Most recent to 1 oldest [Reference Range]: Creatinine Lvl 0.56 mg/dL [0.50-1.40 mg/dL] (05/05/15 9:23 PM) eGFR 128 mL/min/1.73m2 1 *NA* (05/05/15 9:23 PM) BUN [7-22 mg/dL] 7 mg/dL (05/05/15 9:23 PM) B/C Ratio [6-25] 12 (05/05/15 9:23 PM) Glucose Lvl [70-99 86 mg/dL mg/dL] (05/05/15 9:23 PM) Total Protein 7.8 g/dL [6.4-8.4 g/dL] (05/05/15 9:23 PM) Albumin Lvl [3.5-5.0 3.7 g/dL g/dL] (05/05/15 9:23 PM) Globulin [2.0-4.0 4.1 g/dL g/dL] *HI* (05/05/15 9:23 PM) A/G Ratio [0.7-1.6] 0.9 (05/05/15:23 PM) Calcium Lvl 8.1 mg/dL [8.5-10.5 mg/dL] *LOW* (05/05/15 9:23 PM) ALT [0-65 unit/L] 21 unit/L (05/05/15:23 PM) AST [0-37 unit/L] 10 unit/L (05/05/15:23 PM) Alk Phos [39-136 84 unit/L unit/L] (05/05/15 9:23 PM) Bili Total [0.2-1.3 0.4 mg/dL mg/dL] (05/05/15 9:23 PM) Lipase Lvl [73-393 78 unit/L unit/L] (05/05/15 9:23 PM) 1Result Comment: The eGFR is calculated [...] Most recent to 1 oldest [Reference Range]: S Preg [Negative] Negative *NA* (05/05/15 9:23 PM) URINE AND STOOL Most recent to 1 oldest [Reference Range]: UA Turbidity [Clear] Clear (05/05/15 9:38 PM) UA Color Ltyellow *NA* (05/05/15 9:38 PM) UA pH [5.0-8.0] 6.0 (05/05/15 9:38 PM) UA Spec Grav 1.012 [<=1.030] (05/05/15 9:38 PM) UA Glucose [Negative Negative mg/dL mg/dL] *NA* (05/05/15 9:38 PM) UA Blood [Negative] Small *ABN* (05/05/15 9:38 PM) UA Ketones [Negative Negative mg/dL mg/dL] *NA* (05/05/15 9:38 PM) UA Protein [Negative Negative mg/dL mg/dL] (05/05/15 9:38 PM) UA Urobilinogen <=1.0 mg/dL [0.1-1.0 mg/dL] *NA* (05/05/15 9:38 PM) UA Bili [Negative] Negative *NA* (05/05/15 9:38 PM) UA Leuk Est Negative [Negative] (05/05/15 9:38 PM) UA Nitrite Negative [Negative] (05/05/15 9:38 PM) UA WBC [0-5 /HPF] <1 /HPF (05/05/15 9:38 PM) UA RBC [0-2 /HPF] 4 /HPF *HI* (05/05/15 9:38 PM) UA Sq Epi [Few /LPF] Occasional /LPF *NA* (05/05/15 9:38 PM) UA Mucus [None Seen Few /LPF /LPF] *NA* (05/05/15 9:38 PM) HEMATOLOGY Most recent to 1 oldest [Reference Range]: WBC [3.7-10.4 K/CMM] 10.7 K/CMM *HI* (05/05/15 9:23 PM) RBC [4.20-5.40 4.31 M/CMM M/CMM] (05/05/15 9:23 PM) Hgb [12.0-16.0 g/dL] 12.6 g/dL (05/05/15 9:23 PM) Hct [36.0-48.0 %] 38.4 % (05/05/15 9:23 PM) MCV [80.0-98.0 fL] 89.2 fL (05/05/15 9:23 PM) MCH [27.0-31.0 pg] 29.3 pg (05/05/15 9:23 PM) MCHC [32.0-36.0 32.9 g/dL g/dL] (05/05/15 9:23 PM) RDW [11.5-14.5 %] 13.4 % (05/05/15 9:23 PM) Platelet [133-450 330 K/CMM K/CMM] (05/05/15 9:23 PM) MPV [7.4-10.4 fL] 8.1 fL (05/05/15 9:23 PM) Segs [45.0-75.0 %] 72.6 % (05/05/15 9:23 PM) Lymphocytes 20.7 % [20.0-40.0 %] (05/05/15 9:23 PM) Monocytes [2.0-12.0 5.4 % %] (05/05/15 9:23 PM) Eosinophils [0.0-4.0 0.9 % %] (05/05/15 9:23 PM) Basophils [0.0-1.0 0.4 % %] (05/05/15 9:23 PM) Segs-Bands # 7.8 K/CMM [1.5-8.1 K/CMM] (05/05/15 9:23 PM) Lymphocytes # 2.2 K/CMM [1.0-5.5 K/CMM] (05/05/15 9:23 PM) Monocytes # [0.0-0.8 0.6 K/CMM K/CMM] (05/05/15 9:23 PM) Eosinophils # 0.1 K/CMM [0.0-0.5 K/CMM] (05/05/15 9:23 PM) Immunizations No data available for this [...]
--- OUTSIDE RECORDS SUMMARY | 2019-09-17 11:13 | XMS REPORT | CCD ---
Author Author EDGARDO Rizo Organization [facility] Address Unknown Phone Unavailable Care Team Providers Care Technical Services Analyst Name Role Phone Wong Avila CP Unavailable Medications Medication Instructions Start Date End Date Status potassium chloride 40 mEq, 15 mL, Route: PO, Drug 04/07/2012 0 04/07/2012 Completed 20 mEq/15 mL oral form: LIQ, ONCE, Dosing Darian ght liquid 113.636, kg, Priority: STAT , Start date: 04/07/12 20:11:00, Stop date: 04/07/12 20:11:00 Sodium Chloride 0.9% 1,000 mL, Rate: 1,000 ml/hr, Infuse 02/201204/07/2012 Completed (Bolus) IV 1,000 mL over: 1 hr, Route: IV, kg, Total Volume: 1,000, Priority: STAT, Start date: 04/07/12 20:11:00, Duration: 1 doses or times, Stop date: 04/07/12 21:10:00, Bolus Dose Bolus Dose Tylenol 1,000 mg, Route: PO, ONCE, Dosing 04/07/201204/07 Completed Weight 113.636, kg, Start date: 04/07/12 22:12:00, Stop date: 04/07/12 22:12:00 Vital Signs Most recent to oldest [Reference Range]: 1 Height 167.64 cm (04/07/2012 18:54:00) Weight 113.636 kg (04/07/2012 18:54:00) Results URINALYSIS Most recent to oldest [Reference Range]: 1 UA Turbidity [Clear] Slight *ABN* (04/07/2012 19:10:00) UA Color [Yellow] Yellow *NA* (04/07/2012 19:10:00) UA pH [5.0-8.0] 7.0 (04/07/2012 19:10:00) UA Spec Grav [<=1.030] 1.021 (04/07/2012 19:10:00) UA Glucose [Negative mg/dL] Negative mg/dL *NA* (04/07/2012 19:10:00) UA Blood [Negative] Negative (04/07/2012 19:10:00) UA Ketones [Negative mg/dL] Negative mg/dL *NA* (04/07/2012 19:10:00) UA Protein [Negative mg/dL] Negative mg/dL (04/07/2012 19:10:00) UA Urobilinogen [0.1-1.0 mg/dL] <=1.0 mg/dL *NA* (04/07/2012 19:10:00) UA Bili [Negative] Negative *NA* (04/07/2012 19:10:00) UA Leuk Est [Negative] Negative (04/07/2012 19:10:00) UA Nitrite [Negative] Negative (04/07/2012 19:10:00) UA WBC [0-5 /HPF] 1 /HPF (04/07/2012 19:10:00) UA RBC [0-2 /HPF] 1 /HPF (04/07/2012 19:10:00) UA Bacteria [None Seen /HPF] Occasional /HPF *NA* (04/07/2012 19:10:00) UA Sq Epi [Few /LPF] Occasional /LPF *NA* (04/07/2012 19:10:00) CHEMISTRY Most recent to oldest [Reference Range]: 1 Sodium Lvl [135-145 mEq/L] 139 mEq/L (04/07/2012:25:00) Potassium Lvl [3.5-5.1 mEq/L] 3.4 mEq/L *LOW* (04/07/2012:25:00) Chloride Lvl [95-109 mEq/L] 105 mEq/L (04/07/2012:25:00) CO2 [24-32 mEq/L] 26 mEq/L (04/07/2012:25:00) AGAP [10.0-20.0 mEq/L] 11.4 mEq/L (04/07/2012:25:00) Creatinine Lvl [0.5-1.4 mg/dL] 0.6 mg/dL (04/07/2012:25:00) eGFR 127 mL/min/1.73m2 1 *NA* (04/07/2012:25:00) BUN [7-22 mg/dL] 9 mg/dL (04/07/2012:25:00) B/C Ratio [6-25] 15 (04/07/2012:25:00) Glucose Lvl [70-99 mg/dL] 80 mg/dL 2 (04/07/2012:25:00) Total Protein [6.4-8.4 g/dL] 7.4 g/dL (04/07/2012:25:00) Albumin Lvl [3.5-5.0 g/dL] 3.3 g/dL *LOW* (04/07/2012::00) Globulin [2.0-4.0 g/dL] 4.1 g/dL *HI* (04/07/2012::00) A/G Ratio [0.7-1.6] 0.8 (04/07/2012:25:00) Calcium Lvl [8.5-10.5 mg/dL] 8.3 mg/dL *LOW* (04/07/2012:25:00) ALT [0-65 unit/L] 26 unit/L (04/07/2012:25:00) AST [0-37 unit/L] 15 unit/L (04/07/2012:25:00) Alk Phos [39-136 unit/L] 86 unit/L (04/07/2012:25:00) Bili Total [0.2-1.3 mg/dL] 0.2 mg/dL (04/07/2012:25:00) Amylase Lvl [25-115 unit/L] 23 unit/L *LOW* (04/07/2012:25:00) Lipase Lvl [73-393 unit/L] 92 unit/L (04/07/2012:25:00) [place] [address] mIU/mL 3 *NA* (04/07/2012 19:25:14) U Preg [Negative] Positive *ABN* (04/07/2012:10:00) 1Result Comment: The eGFR is calculated using [...] be mul tiplied by the estimated BMI. 2Interpretive Data: Adult reference range values reflect the clinical guidelines of the [place] [employer]. 3Interpretive Data: Reference Range: Male 0 - 5 [...] 8,175 - 55,868 18 8,099 - 58,176 HEMATOLOGY Most recent to oldest [Reference Range]: 1 WBC [3.7-10.4 K/CMM] 10.1 K/CMM (04/07/2012 19:25:00) RBC [4.20-5.40 M/CMM] 4.00 M/CMM *LOW* (04/07/2012 19:25:00) Hgb [12.0-16.0 g/dL] 12.1 g/dL (04/07/2012 19:25:00) Hct [36.0-48.0 %] 36.7 % (04/07/2012:25:00) MCV [81.0-99.0 fL] 91.8 fL (04/07/2012:) MCH [27.0-31.0 pg] 30.4 pg (04/07/2012:25:00) MCHC [32.0-36.0 g/dL] 33.1 g/dL (04/07/201225:00) RDW [11.5-14.5 %] 12.8 % (04/07/2012:25:00) Platelet [133-450 K/CMM] 245 K/CMM (04/07/2012:25:00) MPV [7.4-10.4 fL] 8.1 fL (04/07/2012:25:) Segs [45.0-75.0 %] 72.5 % (04/07/2012:25:00) Lymphocytes [20.0-40.0 %] 18.7 % *LOW* (04/07/2012:25:) Monocytes [2.0-12.0 %] 6.8 % (04/07/2012:25:00) Eosinophils [0.0-4.0 %] 1.6 % (04/07/2012:25:00) Basophils [0.0-1.0 %] 0.4 % (04/07/2012:25:00) Segs-Bands # [1.5-8.1 K/CMM] 7.3 K/CMM (04/07/2012:25:00) Lymphocytes # [1.0-5.5 K/CMM] 1.9 K/CMM (04/07/2012:25:00) Monocytes # [0.0-0.8 K/CMM] 0.7 K/CMM (04/07/2012:25:00) Eosinophils # [0.0-0.5 K/CMM] 0.2 K/CMM (04/07/2012:25:00) Basophils # [0.0-0.2 K/CMM] 0.0 K/CMM (04/07/2012:25:00)
[2019-09-17 11:20] LABS: HCG,QUANTITATIVE 850.25 mIU/mL (0-10)
[2019-09-17 11:29] LABS: BACTERIA,URINE MODERATE /HPF; EPITHELIAL CELLS,URINE FEW /LPF; RBC,URINE >50 /HPF (0-5); WBC,URINE (MAN) 0-5 /HPF (0-5)
[2019-09-17] MEDS ORDERED: FENTANYL CITRATE/PF 100MCG/2 ML INJ IV ONE (12:45)
--- NOTE | 2019-09-17 12:53 | Diagnostic Imaging Report ---
Exam: Pelvic ultrasound. History: Vaginal bleeding, miscarriage Comparison: None Findings: Transvaginal sonographic evaluation of the pelvis. The uterus measures 7.2 x 4.8 x 5.8 cm with endometrial stripe thickness of 5 mm. No uterine masses identified. The cervix contains multiple nabothian cysts and a small amount of hypoechoic material, possibly reflecting clots. The right ovary measures 2.1 x 1.6 x 2.3 cm and contains physiologic follicles. The left ovary is not optimally visualized and measures 2.4 x 1.4 x 1.4 cm. No free fluid in the pelvis. Impression: Cervical Nabothian cysts and small amount of hypoechoic material, possible reflecting clots. Otherwise, unremarkable transvaginal pelvic ultrasound. Signed by: Leoncio Mendez MD on 09/17/2019 12:49 PM
[2019-09-17] MEDS ORDERED: NORETHINDRONE0.35 MG PO (14:26)
== END 2019-09-17 14:57 | disposition home or self-care (01) ==
LOC: ER 11:10
DX: N93.8 Other specified abnormal uterine and vaginal bleeding (principal); E66.9 Obesity, unspecified; F17.210 Nicotine dependence, cigarettes, uncomplicated
CPT/HCPCS: 36415; 76830; 80053; 81001; 84702; 85025; 86900; 87491; 87591; 99284; J3010